=== PATIENT | male | born 1975 | race Caucasian/White ===

== ENCOUNTER → 2022-11-18 | Outpatient (CLI) | payer BC, SELFPAY ==
--- NOTE | 2022-11-18 16:43 | STRESSREP ---
Stress Test Report Exercise stress test. 47-year-old man with a history of chest pain Stress protocol: Resting EKG demonstrates sinus bradycardia with a rate of 55 bpm resting blood pressure is 112/80 mmHg. The patient exercised according to the regular Jasbir protocol for a total duration of 14 minutes attaining a maximum heart rate of 160 bpm which was 91% of maximum predicted heart rate; the maximum workload was 17.2 metabolic equivalents. At rest there were no ST or T wave changes noted to suggest ischemia and at peak exercise upsloping ST changes only were noted which did not meet the criteria for ischemia. No clinical angina was noted the test was terminated due to the target heart rate being achieved/fatigue. The peak blood pressure was 148/80 mmHg. Rate-pressure product was 23,600. Conclusion: Stress test with no EKG criteria for ischemia at a high workload Excellent functional aerobic capacity.
== END | disposition home or self-care (01) ==
LOC: CVS 11:06
PROVIDERS: Referring Provider Internal Medicine Cardiovascular Disease; Visit Provider Internal Medicine Cardiovascular Disease
DX: R07.9 Chest pain, unspecified (principal)
CPT/HCPCS: 93017

== ENCOUNTER → 2022-11-28 | Outpatient (CLI) | payer BC, SELFPAY ==
[2022-11-28 13:14] LABS: AST(SGOT) 28 U/L (15-37); Alanine Aminotransfer ALT/SGPT 25 U/L (16-61); Albumin, Serum 4.2 g/dL (3.2-5.0); Alkaline Phosphatase 60 U/L (45-117); Bilirubin, Direct 0.19 mg/dL (0.00-0.30); Cholesterol 208 mg/dL (200); Globulin 3.2 g/dL (2.2-4.2); High Density Lipoprotein 80 mg/dL; Protein, Total 7.4 g/dL (6.4-8.2); Triglycerides 50 mg/dL; Very Low Density Lipoprotein 10 mg/dL (5-40)
== END | disposition home or self-care (01) ==
LOC: LAB 12:15
PROVIDERS: Referring Provider Internal Medicine Cardiovascular Disease; Visit Provider Internal Medicine Cardiovascular Disease
DX: E78.00 Pure hypercholesterolemia, unspecified (principal)
CPT/HCPCS: 36415; 80061; 80076

== ENCOUNTER → 2022-12-15 | Outpatient (CLI) | payer BC, SELFPAY ==
--- NOTE | 2022-12-15 13:19 | CT_ITS ---
INDICATION: CHEST PAIN EXAMINATION: CT CHEST WITHOUT CONTRAST - CT Chest W/O Contrast Injection TECHNIQUE: Helically acquired images were obtained of the chest. A radiation dose optimization technique was used for this scan. IV Contrast dosage and agent: None. Cardiac over read examination. COMPARISON: None. FINDINGS: LUNGS, PLEURA AND LARGE AIRWAYS: No masses, consolidation, or edema. No pleural effusion or thickening. No pneumothorax. THYROID: No thyroid lesions. HEART AND PERICARDIUM: Heart size is normal. No pericardial effusion. CORONARY ARTERIES: Coronary artery calcification is not seen. VESSELS: Thoracic aorta is not dilated. MEDIASTINUM AND GONZALO: Small benign-appearing mediastinal lymph nodes. Esophagus is unremarkable. No hiatal hernia. UPPER ABDOMEN: No acute pathology. BONES: No suspicious lytic or blastic abnormality. CT/Limited Chest CT Cardiac Only IMPRESSION: Negative CT chest without contrast. Electronically Signed: Dex Hu MD at 9:38 EDT ,
--- NOTE | 2022-12-24 16:03 | CA.SCORE ---
Calcium Scoring Date of Study:: 12/15/22 Indications Indications: Screening Coronary Calcium Scoring: High-resolution Computed Tomographic imaging of the chest was performed on [12/15/2022], with particular attention paid to the coronary arteries. Images from the examination were analyzed for the presence and extent of coronary artery calcification , using coronary calcium quantification software. The patient tolerated the procedure well and there were no complications. The results of the coronary calcification analysis are provided below. Findings Coronary Artery Left Main (LM): 0 Left Anterior Descending (LAD): 0 Left Circumflex (LCX): 0 Right Coronary Artery (RCA): 0 Total Agatston Score: 0 Percentile Rankin Calcium Scoring Interpretation: Different methods to categorize the overall amount of coronary plaque. Overall amount CAC SIS Visual of coronary plaque P1 Mild -100 <2 1-2 vessels with mild amount of plaque P2 Moderate 101-300 3-4 1-2 vessels with moderate amount, 3 vessels with mild amount of plaque P3 Severe 301-999 5-7 3 vessels with moderate amount, 1 vessel with severe amount of plaque P4 Extensive >1000 >8 2-3 vessels with severe amount of plaque Conclusion: No significant atherosclerotic plaquing noted.
== END | disposition home or self-care (01) ==
PROVIDERS: Referring Provider Internal Medicine Cardiovascular Disease; Visit Provider Internal Medicine Cardiovascular Disease
DX: R07.9 Chest pain, unspecified (principal)
CPT/HCPCS: 75571; 76380

== ENCOUNTER 2023-02-10 12:47 | Day surgery (SDC) | payer BC, SELFPAY ==
[2023-02-10] VITALS (9 sets, daily range): BP systolic 97–144; BP diastolic 72–130; PULSE 58–65; RESP 16–17; TEMP 36.2–37; O2SAT 96–98; BMI 23.8
[2023-02-10] MEDS: Lactated Ringers 1,000 ML 15 ML IV (13:14)
--- NOTE | 2023-02-10 13:44 | PCM.HP.STD ---
[facility] - General General Date of Admission: 02/10/23 Date of Service: 02/10/23 Chief Complaint: Screening colonoscopy [facility] Narrative ASHLYN HUITRON, is a 47 M who presents today for screening colonoscopy. He has never had a colonoscopy in the past. He has occasional abdominal discomfort with some mild bloating and has some mild incomplete evacuation. He has noticed that his stools have been a bit harder. His weight has been stable. He has not seen any blood in his stool. He has no family history of colon cancer or colon polyps. [facility] Medical History Alcohol use Cardiology follow-up encounter Chest pain Fatigue Heartburn History of echocardiogram History of stress test Hypertriglyceridemia Light headed Myalgia Non-smoker Palpitations Wears glasses Home Medications NK 10/16/22 [History Last Taken Unknown] Allergy/AdvReac Type Severity Reaction Status Date / Time No Known Allergies Allergy Unverified 02/10/23 12:58 Family History Father CAD (coronary artery disease) Hyperlipidemia Grandfather Myocardial infarction Grandmother Myocardial infarction Surgical History History of hydrocelectomy Hx of vasectomy Social History Smoking Status: Never smoker alcohol intake: current alcohol intake frequency: a few times a week Alcohol type: wine substance use type: does not use caffeine: Yes Type: coffee and tea ROS Review of Systems ROS Unobtainable: other Constitutional Constitutional: Denies fatigue, fever(s), poor appetite, weight gain or weight loss ENT HEENT: Denies mouth lesions Cardiovascular Cardiovascular: Denies abdominal bloating, abdominal edema or abdominal pain Respiratory/Chest Respiratory/Chest: Denies change in mental status, change in phlegm color, chest congestion or chest tightness Gastrointestinal Gastrointestinal: Denies belching, bloating, change in bowel habits, change in stool character, chewing difficulty, coffee ground emesis, constipation, cramping, diarrhea, dyspepsia, dysphagia, early satiety, excessive flatus, fecal incontinence, heartburn, hematemesis, hematochezia, hemorrhoids, loose stools, melena, nausea, odynophagia, rectal bleeding, tenesmus, vomiting or weight changes Genitourinary Genitourinary: Denies abdominal discomfort, burning urination or itching Musculoskeletal Musculoskeletal: Reports as per HPI; Denies muscle weakness or myalgias Integumentary Integumentary: Denies jaundice Neurologic Neurologic: Denies lack of coordination or weakness Psychiatric Psychiatric: Denies confusion, depression, memory loss, mood swings, paranoia or suicidal ideation Endocrine Endocrinology: Denies systems reviewed and no addt'l complaints, except as documented Hematologic/Lymphatic Hematologic/Lymphatic: Denies anemia, easy bleeding, easy bruising or lymphadenopathy Allergic/Immunologic Allergic/Immunologic: Denies systems reviewed and no addt'l complaints, except as documented Vital Signs Vital Signs Vital Signs: 02/10/23 13:14 02/10/23 13:14 Temperature 98.6 F Temperature Source Temporal Pulse Rate 64 Respiratory Rate 17 Respiratory Pattern Normal Blood Pressure 123/83 H Blood Pressure Mean 96 Blood Pressure Source Monitor Blood Pressure Position Semi-Fowlers Blood Pressure Location Left Arm Pulse Ox 96 Oxygen Delivery Method Room Air Weight Weight: 152 lb 1.903 oz Body Mass Index (BMI) 23.8 Physical Exam Const alert General Appearance: cooperative Orientation / Consciousness: oriented to person HEENT hearing grossly normal bilaterally Head and Scalp: normal to inspection Face and Sinus: face symmetric Nose: external nose normal Mouth: oral and palatal mucosa normal Eyes conjunctivae normal General Eye: normal appearance of both eyes Neck full ROM General: normal visual inspection Lymph Lymphatic: no lymphadenopathy noted Chest inspection of chest normal and palpation of chest normal Chest: symmetrical chest wall rise Resp normal respiratory effort Effort and Inspection: able to speak in complete sentences Cardio regular rate GI non-distended Percussion: normal to percussion Rectal Exam: deferred Neuro Speech: speech normal Gait (Neuro): normal gait Assessment & Plan Assessment/Plan (1) Encounter for screening for malignant neoplasm of colon: PLAN: He was explained alternatives, risk, benefits including not withstanding bleeding, infection, sepsis, perforation, need for emergent surgery . He will have an ASA of 2.
--- NOTE | 2023-02-10 13:45 | COLBX_PTH ---
PATIENT: ASHLYN HUITRON LOC: EN U#:[id number] AGE/SX: 47/M ROOM: RE02/10/[address]: Dr. Jus Schaeffer DO : 1975 BED: DIS: 02/10/2023 SPEC #: [id number] RECD: 02/10/23 15:53 STATUS: ELIZABETH REAnil #: [id number] LINDA: 02/10/23 13:[address]: Jus Schaeffer DEPT: SURGICAL PATHOLOGY RECD BY: Deann Chris ENTERED: 02/11/23 08:42 SP TYPE: COLON BX OTHR DR: No Primary Care Phys Tissues: Ileum, NOS Procedures: Surgery Specimen Level IV HEADER OPERATION: Colonoscopy ? open access (MAC) PRE-OP DIAGNOSIS: Screening TISSUE SUBMITTED: Terminal ileum biopsy MICROSCOPIC DIAGNOSIS Terminal ileum, biopsy: Fragments of small intestinal mucosa, no pathologic diagnosis. VIKY:maninder 02/12/2023 MICROSCOPIC DESCRIPTION Slides are reviewed. GROSS DESCRIPTION Received in fixative is one container labeled with the patient's name and designated terminal ileum. The specimen consists of multiple irregular fragments of light love soft tissue that in aggregate measure 1.0 x 0.3 x 0.1 cm. The specimen is totally submitted in one cassette. / SJ:maninder 02/11/2023 TC:4 CPT: 49137
--- NOTE | 2023-02-10 14:22 | OP.CCLET_ITS ---
02/10/2023 No Primary Care Physician Re : Colonoscopy procedure for Sarthak Lee Dear Care Physician This procedure was performed on Friday, February 10, 2023. My impressions and recommendations are as follows: Impressions : - The entire examined colon is normal. - Congested mucosa in the terminal ileum. - No specimens collected. Recommendations : - Discharge patient to home. - Resume previous diet. - Continue present medications. - Await pathology results. - Repeat colonoscopy in 10 years for screening purposes. My findings are described in the full procedure note, which is enclosed. If I can be of further assistance, please feel free to contact me at . Sincerely, Jus Schaeffer, 02/10/2023 2:22:08 PM This report has been signed electronically.
--- NOTE | 2023-02-10 14:22 | OP.COLON_ITS ---
Patient Name: Sarthak Lee Procedure Date: 02/10/2023 1:43 PM Date of : 1975 Age: 47 Procedure: Colonoscopy Indications: Screening for colorectal malignant neoplasm Providers: Jus Schaeffer DO Medicines: Monitored Anesthesia Care Patient Profile: This is a 47 year old male. Refer to note in patient chart for documentation of history and physical. Last Colonoscopy: none. The patient's first colonoscopy is today. Complications: No immediate complications. Procedure: Pre-Anesthesia Assessment: - Prior to the procedure, a History and Physical was performed, and patient medications and allergies were reviewed. The patient is competent. The risks and benefits of the procedure and the sedation options and risks were discussed with the patient. All questions were answered and informed consent was obtained. Patient identification and proposed procedure were verified by the physician. Mental Status Examination: normal. Prophylactic Antibiotics: The patient does not require prophylactic antibiotics. Prior Anticoagulants: The patient has taken no previous anticoagulant or antiplatelet agents. After reviewing the risks and benefits, the patient was deemed in satisfactory condition to undergo the procedure. The anesthesia plan was to use minimal sedation / analgesia (anxiolysis). Immediately prior to administration of medications, the patient was re-assessed for adequacy to receive sedatives. The heart rate, respiratory rate, oxygen saturations, blood pressure, adequacy of pulmonary ventilation, and response to care were monitored throughout the procedure. The physical status of the patient was re-assessed after the procedure. After I obtained informed consent, the scope was passed under direct vision. Throughout the procedure, the patient's blood pressure, pulse, and oxygen saturations were monitored continuously. The colonoscope was introduced through the anus and advanced to the terminal ileum. The terminal ileum, ileocecal valve, appendiceal orifice, and rectum were photographed. Scope In: 2:00:36 PM Scope Withdrawal Time 0 hours 9 minutes 46 seconds Scope Out: 2:15:07 PM Total Procedure Duration Time 0 hours 14 minutes 31 seconds Findings: The perianal and digital rectal examinations were normal. The colon (entire examined portion) appeared normal. A patchy area of the terminal ileum was congested. Biopsies were taken with a cold forceps for histology. Verification of patient identification for the specimen was done. Estimated blood loss was minimal. Impression: - The entire examined colon is normal. - Congested mucosa in the terminal ileum. - No specimens collected. Recommendation: - Discharge patient to home. - Resume previous diet. - Continue present medications. - Await pathology results. - Repeat colonoscopy in 10 years for screening purposes. Procedure Code(s): --- Professional --- 76375, Colonoscopy, flexible; with biopsy, single or multiple CPT copyright 2017 [employer]. All rights reserved. The codes documented in this report are preliminary and upon olericulture professor review may be revised to meet current compliance requirements. Jus Schaeffer DO 02/10/2023 2:22:08 PM This report has been signed electronically. Number of Addenda: 0 Note Initiated On: 02/10/2023 1:43 PM
== END 2023-02-10 15:14 | disposition home or self-care (01) ==
LOC: EN 12:53 → AC 12:56
PROVIDERS: Visit Provider Internal Medicine Gastroenterology
PROC: 0DJD8ZZ Inspection of Lower Intestinal Tract, Via Natural or Artificial Opening Endoscopic (ICD-10-PCS; CPT 45378; principal; 2023-02-10 13:40)
DX: Z12.11 Encounter for screening for malignant neoplasm of colon (principal)
CPT/HCPCS: 45380; 88305; J7120; J2405

== ENCOUNTER 2024-11-29 16:10 | Emergency (ER) | payer BC, SELFPAY ==
[2024-11-29 16:11] VITALS: BP 110/94; PULSE 65; RESP 18; TEMP 36.8; O2SAT 100; BMI 24.0
--- NOTE | 2024-11-29 16:19 | VDLE_ITS ---
Reason For Study Reason For Study: RLE PAin/ Swelling RIGHT LEFT GSV is normal. CFV is compressible, spontaneous, phasic, competent, CFV is compressible, spontaneous, phasic, competent and demonstrates normal augmentation. and demonstrates normal augmentation. FV is compressible, spontaneous, phasic, competent and demonstrates normal augmentation. POP V is compressible, spontaneous, and phasic. T/P Trunk is compressible. Acute deep vein thrombosis is noted in the Gastrocnemius V. It is dilated and NONCOMPRESSIBLE. Acute deep vein thrombosis is noted in the Soleus Vein. It is dilated and NONCOMPRESSIBLE. Acute deep vein thrombosis is noted in the PTV. It is dilated and NONCOMPRESSIBLE. RT PerV is compressible. Procedure This is a venous duplex using B-mode, color flow and spectral Doppler. Exam performed portable in ED. The exam was diagnostic. A preliminary report was called and/or faxed to Dr. Buenrostro. VL/Venous Duplex US, Unilateral Interpretation Summary Acute deep vein thrombosis is noted in the right posterior tibial vein. Acute d eep vein thrombosis is noted in the right soleus vein. Acute deep vein thrombosis is noted in the right gastrocnemius vei n. The remainder of the right lower extremity deep venous system is patent and compressible. Valvular competence ap pears intact within the proximal deep venous system on the right . The right great saphenous vein appears patent and compressible segmentally. The left common femoral vein is patent and compressible . Ordering Physician: Rl Buenrostro Referring Physician: N/A Performed By: Abhi Duncan RVT
--- NOTE | 2024-11-29 16:30 | EDS_ITS ---
HPI History of Present Illness Chief Complaint: Lower Extremity Injury Narrative Narrative: Patient is a 49-year-old male with no known significant past medical history who presented to the emergency department from the orthopedic office with a chief complaint of right calf pain. Patient states that he recently took a trip to [facility] and notes that he has some pain in his catheter been worsening. He states that the injury to his knee was right before the trip and that is why he was f ollowing up with them in the outpatient setting. He states that they scheduled an MRI for his right knee but were concerned that he may have a blood clot in his leg therefore they sent him here for the valuation management. Patient denies any history of blood clots. [facility] Medical History Wears glasses Alcohol use Heartburn Non-smoker History of echocardiogram History of stress test Cardiology follow-up encounter Hypertriglyceridemia Palpitations Fatigue Myalgia Chest pain Light headed Home Medications ?Medication ?Instructions ?Recorded ?Last Taken ?Type NK 10/16/22 Unknown History Allergy/AdvReac Type Severity Reaction Status Date / Time No Known Allergies Allergy Verified 11/29/24 16:13 Family History Father CAD (coronary artery disease) Hyperlipidemia Grandfather Myocardial infarction Grandmother Myocardial infarction Surgical History History of hydrocelectomy Hx of vasectomy Social History Smoking Status: Never smoker alcohol intake: current alcohol intake frequency: a few times a week Alcohol type: wine substance use type: does not use caffeine: Yes Type: coffee and tea ROS ROS ED ROS Narrative Constitutional: Denies fevers, chills, headaches Cardiovascular: Denies chest pain Respiratory: Denies shortness of breath Neurological: Denies numbness, weakness, tingling Musculoskeletal: Complains of right knee pain as noted above as well as calf pain Skin: Denies rashes or lesions EXAM Physical Exam Narrative Exam Narrative: General: Patient was lying in bed rest comfortably did not appear to be in acute distress Head: Atraumatic, normocephalic Eyes: PERRL bilaterally, EOMI bilateral, no conjunctival injection noted Neck: Soft, supple, trachea midline Cardiovascular: Regular rate and rhythm no murmurs gallops rubs noted Respiratory: Clear to auscultation bilaterally Abdomen: Soft, nondistended, nontender to palpation Musculoskeletal: Patient has some mild tenderness to palpation in his posterior calf on the right side, compartments are soft and compressible Extremities: DP pulses +2/4 in the bilateral lower extremities is 5/5 strength noted in the bilateral upper and lower extremities Neurological: Patient following commands knew that he was at [facility] year is 2024 Skin: Warm, dry, intact no rashes or lesions noted Const Vital Signs: 11/29/24 16:11 Temperature 98.2 F Temperature Source Oral Pulse Rate 65 Respiratory Rate 18 Blood Pressure 110/94 H Blood Pressure Mean 99 Pulse Ox 100 Oxygen Delivery Method Room Air MDM MDM MDM Narrative Medical decision making narrative: Patient is a 49-year-old male who presented to the emergency department the chief complaint of concern for a blood clot in his right calf after a recent trip to [facility]. On the differential diagnose includes but not limited to musculoskeletal strain, DVT, superficial venous thrombosis. Once workup is obtained reviewed he will be reevaluated. Patient's venous Doppler was positive for a DVT he will be started on Eliquis. He will be given follow-up with vascular surgery Dr. Duarte. He was advised to avoid high risk activities and if he falls in its his head he needs to be evaluated immediately as there is a chance that he has a head bleed. He verbalized understanding of this as well as his family member at bedside. They are agreeable this plan all question concerns answered he is discharged home in stable condition. Discharge Plan Triage Chief Complaint: Lower Extremity Injury ED Provider: Rl Buenrostro Dx/Rx/DC Orders Clinical Impression: Acute deep vein thrombosis (DVT) of right lower extremity Instructions: DVT Complications Prescriptions: No Action NK Primary Care Provider: Care Physician,No Primary Referrals: Care Physician,No Primary [Primary Care Provider] - Vivien Ross MD [Med Staff - Computer Education Teacher] - Stevo Duarte MD [Med Staff - Active Staff] - Activity Restrictions/Additional Instructions: Follow-up with the vascular surgeon you referred to. Take Eliquis as prescribed. Return with worsening symptoms or concerns. If you fall and hit your head you need to be evaluated immediately in the emergency department as her chance that you will have a head bleed while on the blood thinning medication from the head trauma. You are also referred to a primary care p [place] if you not have 1. He should follow-up with them as well. Print Language: Chadian Disposition Disposition: Home, Self Care
[2024-11-29 17:11] VITALS: BP 109/76; PULSE 62; RESP 14; TEMP 36.6; O2SAT 99
== END 2024-11-29 17:12 | disposition home or self-care (01) ==
PROVIDERS: Emergency Provider Emergency Medicine; Visit Provider Emergency Medicine
DX: I82.401 Acute embolism and thrombosis of unspecified deep veins of right lower extremity (principal)
CPT/HCPCS: 93971; 99282

== ENCOUNTER 2024-12-01 15:03 | Emergency (ER) | payer BC, SELFPAY ==
[2024-12-01 15:04] VITALS: BP 123/86; PULSE 58; RESP 13; TEMP 36.2; O2SAT 100
--- NOTE | 2024-12-01 16:56 | ED.VIS.LOWEX ---
HPI History of Present Illness HPI Narrative: 49-year-old male recently diagnosed with a right calf DVT has been on Eliquis 2 to 3 days. He is also now developed a right knee effusion. Did previously a few weeks ago have a knee injury while playing sports. Has an upcoming MRI to see if there is any structural damage to his knee. Denies any fever or redness. Chief Complaint: Lower Extremity Injury Informant: patient and spouse/S.O. Occured/Mechanism Mechanism/Context: Yes injury Onset/Context/Timing Onset: Weeks Context: Gradual Onset Timing: Continuous Current Severity: Mild Maximum Severity: Mild Associated Symptoms Associated Symptoms: Negative for Parasthesia, Weakness or Loss of Funtion Narrative Narrative: 49-year-old male known right calf DVT recently started on Eliquis. Saw orthopedics. Has a scheduled MRI for his right knee to see if there is any structural damage. Over the last several days he has developed an effusion. Denies any bruising. No epistaxis. No blood in his urine. No blood in his stool. No bruising to his leg. No fever or redness. Prior similar symptoms: No Recent Illness/Hospitalization: No PFSH PFSH Medical History Wears glasses Alcohol use Heartburn Non-smoker History of echocardiogram History of stress test Cardiology follow-up encounter Hypertriglyceridemia Palpitations Fatigue Myalgia Chest pain Light headed Home Medications ?Medication ?Instructions ?Recorded ?Last Taken ?Type apixaban 5 mg (74 tabs) tablets in See Rx Instructions PO .COMPLEX 11/29/24 Unknown Rx a dose pack (Eliquis DVT-PE Treat #74 tabs 30D Start) Allergy/AdvReac Type Severity Reaction Status Date / Time No Known Allergies Allergy Verified 12/01/24 15:06 Family History Father CAD (coronary artery disease) Hyperlipidemia Grandfather Myocardial infarction Grandmother Myocardial infarction Surgical History History of hydrocelectomy Hx of vasectomy Social History household members: family housing: house Smoking Status: Never smoker alcohol intake: current alcohol intake frequency: a few times a week Alcohol type: wine substance use type: does not use caffeine: Yes Type: coffee and tea ROS ROS ED ROS Narrative Denies recent illness. Constitutional Constitutional ED: Denies chills or fever(s) Eyes Eyes: Denies blurry vision ENT ENT ED: Denies ear pain Cardiovascular Cardiovascular: Denies chest pain Respiratory/Chest Respiratory/Chest: Denies cough or dyspnea Gastrointestinal Gastrointestinal: Denies abdominal pain Genitourinary Genitourinary ED: Denies dysuria or hematuria Musculoskeletal Musculoskeletal: Denies arthralgias or back pain Integumentary Denies abscess or Abrasions Neurologic Neurologic: Denies headache(s) Psychiatric Psychiatric: Denies anxiety Endocrine Endocrinology: Denies polydipsia Hematologic/Lymphatic Hematologic/Lymphatic: Reports lymphadenopathy; Denies easy bleeding Allergic/Immunologic Allergic/Immunologic ED: Denies mouth swelling, tongue swelling or urticaria EXAM Physical Exam Narrative Exam Narrative: Well-appearing 49-year-old male. Vital signs are stable afebrile. Pulse ox 100% on room air no hypoxia. No distress. H EENT exam pupils round react light. Moist mucous membranes. Lungs clear to auscultation bilaterally. Heart regular rhythm no murmur. Chest wall ribs nontender. Abdomen soft nontender. Moving all 4 extremities. He has an obvious effusion to his right knee mild swelling to his right calf. He has a known right calf DVT. He has a small to moderate effusion to the right knee. He is able to flex send his right knee with some discomfort. There is no cellulitis. No signs of a septic joint. Right hip is nontender. He has normal dorsi plantarflexion of his right ankle. Normal strength. Normal sensation. Normal DP pulse. Left lower extremity is nontender and unremarkable. Normal exam. Patient is awake and alert. The right knee structurally his ACL and PCL appear to be intact as does his MCL and LCL. Quadriceps patellar tendons intact. He can extend the knee to 180 degrees. He is able do flexion with mild discomfort. Const Vital Signs: 12/01/24 15:04 Temperature 97.1 F L Temperature Source Temporal Pulse Rate 58 L Respiratory Rate 13 Blood Pressure 123/86 H Blood Pressure Mean 98 Pulse Ox 100 Oxygen Delivery Method Room Air Positive well nourished and well developed; Negative for obese, cachectic, contractures or unkempt General Appearance ED: well developed and NAD; Negative for unkempt, cachectic or contractures Nutritional Appearance: Negative for cachectic or obese HEENT Reports moist mucous membranes normocephalic and atraumatic; Negative for trauma or tenderness Eyes PERRL General Eye ED: Negative for other Neck full ROM and supple Chest Wall inspection of chest normal and palpation of chest normal Resp normal respiratory effort, no retractions and clear to auscultation bilaterally Auscultation: Negative for rales, rhonchi, wheezes or diminished lung sounds Cardio regular rate, regular rhythm, S1 normal heart sound, S2 normal heart sound and no murmurs GI non-tender, non-distended and no masses Auscultation: normoactive bowel sounds Palpation: soft; Negative for tender, guarding or rebound tenderness present Back/Spine no CVA tenderness General Back: Negative for CVA tenderness Cervical Spine: Negative for cervical spine tenderness Thoracic Spine / Upper Back: Negative for thoracic spinal tenderness Extremity normal to inspection and full ROM Extremity Narrative: Except right knee. Small to moderate effusion. Able to do flexion and extension. Can extend 180 degrees. Can lift his leg off the bed. ACL and PCL are intact. MCL and LCL are intact. Quadriceps patellar tendons intact. No cellulitis. No septic knee joint. Dorsi plantarflexion intact. Palpable DP pulse. General Extremety ED: Yes edema; Negative for cyanosis General Extremity: edema; Negative for cyanosis Neuro oriented x3, CN's II-XII intact bilaterally, moves all extremities and no sensory deficits noted Sensorium / Orientation: alert, oriented to person, oriented to place and oriented to time; Negative for orientation impaired, confused, lethargic or stuporous Motor Exam: strength 5/5 throughout Psych mental status grossly normal Appearance: Negative for unkempt Speech: No other Skin no wounds Lesions: no lesions Rashes: no rashes MDM MDM MDM Narrative Medical decision making narrative: 49-year-old male known right calf DVT on Eliquis now also has a right knee effusion. May have had a recent injury. Has an upcoming MRI in 1 to 2 weeks. He does not need x-rays he just had those done at the physician's office. He just had the ultrasound showing a DVT. There is no signs of a septic joint or this being infectious. I do not think draining his knee would be of benefit 1 it would increase his risk of infection to it may reaccumulate. He will be discharged home. Ice and elevate. Tylenol for pain. Continue his Eliquis. He has a follow-up appointment with vascular surgery for further evaluation. Discharge Plan Triage Chief Complaint: Lower Extremity Injury ED Provider: Erwin Meredith Dx/Rx/DC Orders Clinical Impression: Acute deep vein thrombosis (DVT) of right lower extremity, Effusion of right knee joint Instructions: DVT Dc, ED Knee Effusion Prescriptions: No Action Eliquis DVT-PE Treat 30D Start 5 mg (74 tabs) tablets,dose pack See Rx Instructions .ROUTE .COMPLEX Qty: 74 0RF Rx Instructions: orally per package directions Primary Care Provider: Care Physician,No Primary Referrals: tier [Other] Stevo Duarte MD [Med Staff - Active Staff] - Keep Sheyla appointment Care Physician,No Primary [Primary Care Provider] - Activity Restrictions/Additional Instructions: You have a blood clot in your right calf. You have an effusion or fluid in your right knee. The fluid in your knee could be from the clot or from a knee injury like a meniscal tear or from the blood thinner and be a hemarthrosis or blood. Ice and elevate your leg to decrease the swelling. Continue your Eliquis. Follow-up with the vascular surgeon and also your MRI through [facility]. Tylenol for pain. Print Language: Khmer Disposition Disposition: Home, Self Care
== END 2024-12-01 17:08 | disposition home or self-care (01) ==
PROVIDERS: Emergency Provider Emergency Medicine; Visit Provider Emergency Medicine
DX: I82.401 Acute embolism and thrombosis of unspecified deep veins of right lower extremity (principal); M25.461 Effusion, right knee
CPT/HCPCS: 99282

== ENCOUNTER → 2025-02-22 | Outpatient (CLI) | payer BC, SELFPAY ==
--- NOTE | 2025-02-22 08:03 | VDLE_ITS ---
Reason For Study Reason For Study: HX RLE DVT RIGHT LEFT GSV is normal. CFV is compressible, spontaneous, phasic, competent, CFV is compressible, spontaneous, phasic, competent and demonstrates normal augmentation. and demonstrates normal augmentation. FV is compressible, spontaneous, phasic, competent and demonstrates normal augmentation. POP V is compressible, spontaneous, phasic, competent and demonstrates normal augmentation. T/P Trunk is compressible. PTV is compressible. RT PerV is compressible. Soleus Vein is compressible. Acute deep vein thrombosis is noted in the Gastrocnemius V. It is dilated and NONCOMPRESSIBLE. Procedure This is a venous duplex using B-mode, color flow and spectral Doppler. Exam performed in department. The exam was diagnostic. Compare to study 11/29/2024. A preliminary report was called and/or faxed to [facility]. VL/Venous Duplex US, Unilateral Interpretation Summary Acute deep vein thrombosis noted in right gastrocnemius vein. Partial resolution in interval from prior imaging. Ordering Physician: Sapna Grant Referring Physician: N/A Performed By: Abhi Duncan, RVDarrian
== END | disposition home or self-care (01) ==
LOC: CVS 08:02
PROVIDERS: Referring Provider Physician Assistant; Visit Provider Physician Assistant
DX: M79.89 Other specified soft tissue disorders (principal); I82.409 Acute embolism and thrombosis of unspecified deep veins of unspecified lower extremity; M79.604 Pain in right leg
CPT/HCPCS: 93971

== ENCOUNTER → 2025-03-03 | Outpatient (CLI) | payer BC, SELFPAY ==
--- OUTSIDE RECORDS SUMMARY | 2025-03-03 06:58 | XMS RPT_ITS | CCD ---
Author Organization [facility] Care Team Providers Care Resident Physician Name Role Phone Amanda Avalos Attending Provider UnavailDr. Jerome Wynn Attending Provider [phone] Care Physician, No Primary Referring Provider Un available Care Physician, No Primary Primary Care Provider Unavailable Dr. Jerome Garcia Referring Provider [phone] Jerome Garcia Other Provider Yun Bazan Attending Provider Unavailable Rachel Drake Attending Provider Unavailable Dr. Jus Schaeffer Attending Provider [phone] Friend[address] Luu Other Provider [phone] Unavailable Primary Care Provider UnavailBLAINE Dinh Referring Unavailable Care Physician, No Primary Primary Care Provider Unavailable Dr. Rl Buenrostro DO Emergency Provider Dr. Erwin Meredith MD Emergency Provider [phone] Dr. Rl Buenrostro DO Attending Provider Trent NAPIER, Dr. Hemant Chand Attending Provider Dr. Rl Buenrostro DO Referring Provider Dr. Erwin Meredith MD Attending Provider [phone] Care Physician, No Primary Referring Provider Un available Sapna Paniagua Attending Provider [phone] Sapna Paniagua Referring Provider [phone] Sapna Grant Attending Unavailable Care Physician, No Primary Primary Care Unava ilable Care Physician, No Primary Referring Unava ilable Rl Buenrostro Attending Unavailable Care Physician, No Primary Primary Care Unava ilable Erwin Meredith Attending Unavailable Care Physician, No Primary Primary Care Unava ilable Clari Osman Attending Unavail able Clari Osman Referring Unavail able Care Physician, No Primary Primary Care Unava ilable Grant, Sapna Attending Unavailable Grant, Sapna Referring Unavailable Care Physician, No Primary Primary Care Unava ilable Grant, Sapna Attending Unavailable Care Physician, No Primary Primary Care Unava ilable Care Physician, No Primary Referring Unava ilable Stevo Duarte Attending Unavailable Care Physician, No Primary Primary Care Unava ilable Medications Current Medications Medication Drug Class(es) Dates Sig (Normalized) Sig (Original) apixaban 5 mg oral tablet (4 sources) Factor Xa Inhibitor Start: 12-16-2024 take 1 tablet by mouth twice daily Apixaban (Eliquis) 5 mg tablet Active 5 mg PO TWICE A DAY 60 December 16, 2024 12:00am Start: 11-29-2024 End: 02-22-2025 take 1 tablet by mouth once Apixaban (Eliquis Dvt-Pe T reat 30d Start) 5 mg (74 tabs) tablets,dose pack Discontinued 0 PO .COMPLEX 74 November 29, 2024 12:00am February 22, 2025 9:06am orally per package directions oseltamivir 75 mg oral capsule (1 source) Neuraminidase Inhibitor Start: 10-15-2024 End: 10-20-2024 take 1 capsule by mouth twice daily oseltamivir (TAMIFLU) 75 mg capsule Indications: Influenza A Take 1 capsule by mouth two times a day for 5 days. 10 capsule 10/15/2024 10/20/2024 Active Problems Problem Classification Problem Date Documented Da te Episodic/Chronic Cardiac dysrhythmias (7 sources) Palpitations; Translations: [Palpitations] 10-16-2022 Episodic Conditions associated with dizziness or vertigo (7 sources) Lightheadedness; Translations: [Dizziness and giddiness] 10-16-2022 Episodic Fever of unknown origin (1 source) Fever; Translations: [Fever, unspecified] 10-15-2024 Episodic Influenza (1 source) Influenza due to Influenza A virus; Translations: [Influenza due to other identified influenza virus with other respiratory manifestations] 10-15-2024 Episodic Nonspecific chest pain (11 sources) Chest pain; Translations: [Chest pain, unspecified] 10-16-2022 Episodic Comment on above: 11/2022 Other connective tissue disease (1 source) Swelling of right lower limb; Translations: [Other specified soft tissue disorders] 12-16-2024 Episodic Other connective tissue disease (2 sources) Other specified soft tissue disorders; Translations: [Other specified soft tissue disorders] Onset: 12-16-2024 Episodic Other connective tissue disease (2 sources) Pain in right leg; Translations: [Pain in right leg] Onset: 12-16-2024 Episodic Other connective tissue disease (1 source) Pain in right lower leg; Translations: [Pain in right lower leg] Onset: 12-05-2024 Episodic Other non-traumatic joint disorders (1 source) Pain in right knee; Translations: [Pain in joint, lower leg] 11-19-2024 Episodic Other non-traumatic joint disorders (2 sources) Effusion of right knee joint; Translations: [Effusion, right knee] 12-01-2024 Episodic Other non-traumatic joint disorders (1 source) Effusion, right knee; Translations: [Effusion, right knee] Onset: 12-06-2024 Episodic Other screening for suspected conditions (not mental disorders or infectious disease) (6 sources) Patient encounter status; Translations: [Encounter for screening for malignant neoplasm of colon] 12-12-2022 Episodic Other skin disorders (1 source) Mass of skin; Translations: [Localized swelling, mass and lump, unspecified] 05-26-2024 Episodic Other upper respiratory infections (1 source) Upper respiratory infection; Translations: [Acute upper respiratory infection, unspecified] 10-15-2024 Episodic Phlebitis; thrombophlebitis and thromboembolism (6 sources) Acute deep vein thrombosis of lower limb; Translations: [Acute embolism and thrombosis of unspecified deep veins of right lower extremity] Onset: 12-16-2024 11-29-2024 Episodic Residual codes; unclassified (1 source) Family history of ischemic heart disease; Translations: [Family history of ischemic heart disease and other diseases of the circulatory system] 02-06-2025 Episodic Residual codes; unclassified (1 source) Family history of ischemic heart disease and other diseases of the circulatory system; Translations: [Family history of ischemic heart disease and other diseases of the circulatory system] Onset: 02-24-2025 Episodic Unclassified (2 sources) Acute pain of right knee 11-19-2024 Results Test Name Value Interpretation Reference Range Facility /Francesco 02-22-2025 /ANGELITO [facility] Vascular Surgery [address] [place] [address] OFFICE VISIT Date of Service: 02/22/25 MR#: [id number] Acct: [id number] Name: ASHLYN LEE Rep #: [id number] : 1975 Provider: JOSEFA Platt Age/Sex: 49/M [place] [facility] [place] Status: Signed Intake Vital Signs 12/01/24 15:04 02/22/25 09:05 Height 5 ft 7 in Weight: 158 lb BP 108/76 Blood Pressure Location Rt radial Position Sitting Respiration 16 Pulse 73 Pulse Source Monitor Temp 98 F Temp Source Temporal Pulse Oximetry (%) 97 Oxygen Delivery Method room air Intake Visit Reasons: 3 M FU Is patient in pain?: No Allergies No Known Allergies Allergy (Verified 02/22/25 09:06) Medications ???Medication ???Instructions ???Recorded ???Confirmed ???Type apixaban 5 mg tablet (Eliquis) 5 mg PO BID #60 tabs 02/22/2502/05 Rx Have you fallen in the past year?: No PFSH Medical History Family history of ischemic heart disease Wears glasses Alcohol use Heartburn Non-smoker History of echocardiogram History of stress test Cardiology follow-up encounter Hypertriglyceridemia Palpitations Fatigue Myalgia Chest pain Light headed Surgical History History of hydrocelectomy Hx of vasectomy Family History Father CAD (coronary artery disease) Hyperlipidemia Grandfather Myocardial infarction Grandmother Myocardial infarction Social History household members: family housing: house Smoking Status: Never smoker alcohol intake: current alcohol intake frequency: a few times a week Alcohol type: wine substance use type: does not use caffeine: Yes Type: coffee and tea HPI HPI HPI: ASHLYN LEE, is a 49 M who presents to the office today for follow-up of provoked R infrapopliteal DVT. He is scheduled for R ACL reconstruction with Dr. Sullivan at [facility] on 03/14/2025 and needs clearance/anticoagul ation recommendations from our office to proceed. He has just had repeat venous duplex prior to his appointment today which demonstrated resolution of his prior PT and soleal vein DVTs and showed persistent, small residual gastrocnemius DVT. His prior symptoms of tightness/pressure and swelling have resolved; he will intermittently have some return of the tightness/soreness but generally this is attributable to being overactive with his injured knee. He has been taking the Eliquis as prescribed without adverse effects and it is affordable with the copay card. ROS General General: No weight change, appetite, fatigue, colon cancer, breast cancer or weakness HEENT HEENT: No difficulty swallowing, eye injury, eye surgery, swollen glands or hoarseness Endo Endocrine: No thyroid disease, diabetes mellitus, thyroid cancer, Hair loss, heat intolerance or cold intolerance Skin Skin: Yes changing moles; No rash Musc Musculoskeletal: No back problems, arthritis, rheumatoid arthritis, gout or joint pain Cardio Cardiovascular: Yes murmur; No pacemaker, heart disease, atrial fibrillation, high blood pressure, heart attack, heart stent, palpitations, shortness of breath with exertion or chest pain Psych Psychiatric: No depression, anxiety or hearing voices Resp Respiratory: No shortness of breath, No sleep apnea, No cough, No COPD, No asthma, No emphysema and No wheezing Gastro Gastrointestinal: No abdominal pain, No nausea or vomiting, No diarrhea, No constipation, No blood in stool, No acid reflux, No hemorrhoids, No ulcers, No gallbladder problem and No black,tarry stools Jonathon Hematologic: Yes blood thinners, No blood disorders, No bleeding, No anemia and Yes blood clots Neuro Neurologic: No system reviewed and no additional complaints, except as documented, No as per HPI, No abnormal gait, No abnormal hearing, No abnormal movements, No abnormal speech, No behavioral changes, No burning sensations, No confusion, No convulsions, No disequilibrium, No dizziness, No localized weakness, No frequent falls, No headache(s), No lack of coordination, No loss of vision, No memory loss, Yes numbness, No other visual disturbances, No radicular pain, No restless legs, No sensory deficit, No syncope, Yes tingling, No tremor(s), No weakness and No other Exam Const General: cooperative, comfortable and no acute distress Orientation: alert, awake and oriented x3 HENMT Head: normal to inspection, normocephalic and atraumatic Ears: hearing grossly normal bilaterally and external ears normal Nose: external nose normal Eyes General: appearance normal, both eyes and all related structures EOM: EOM intact (more content not included)... Normal [facility] Venous Duplex US, Unilateral on 02-22-2025 Venous Duplex US, Unilateral [facility] Cardiovascular Services [address] [place] [address] Venous Duplex US, Unilateral 02/22/25 0811 MR#: [id number] Acct: [id number] Name: ASHLYN LEE Rep #: [id number] : 1975 49 From: Stevo Duarte MD Attending Dr: JOSEFA Platt Status: REG CLI Ordering Dr: Sapna Grant Date: 02/22/25 Location: CVS Sex: M C Admitted: Reason For Study Reason For Study: HX RLE DVT RIGHT LEFT GSV is normal. CFV is compressible, spontaneous, phasic, competent, CFV is compressible, spontaneous, phasic, competent and demonstrates normal augmentation. and demonstrates normal augmentation. FV is compressible, spontaneous, phasic, competent and demonstrates normal augmentation. POP V is compressible, spontaneous, phasic, competent and demonstrates normal augmentation. T/P Trunk is compressible. PTV is compressible. RT PerV is compressible. Soleus Vein is compressible. Acute deep vein thrombosis is noted in the Gastrocnemius V. It is dilated and NONCOMPRESSIBLE. Procedure This is a venous duplex using B-mode, color flow and spectral Doppler. Exam performed in department. The exam was diagnostic. Compare to study 11/29/2024. A preliminary report was called and/or faxed to [facility]. VL/Venous Duplex US, Unilateral Interpretation Summary Acute deep vein thrombosis noted in right gastrocnemius vein. Partial resolution in interval from prior imaging. Ordering Physician: Sapna Grant Referring Physician: N/A Performed By: Abhi Duncan, T 02/27/25 1434 Date Stevo Duarte MD CC: JOSEFA Platt; No Primary Care Physician Date Dictated: 02/22/25 08 Date Transcribed: 02/27/251433 Tool And Machine Maintainer: Signed [facility] MR/BMS.BVSon 12-16-2024 MR/BMS.S [facility] Vascular Surgery [address] [place] [address] OFFICE VISIT Date of Service: 12/16/24 MR#: [id number] Acct: [id number] Name: ASHLYN LEE Rep #: [id number] : 1975 Provider: JOSEFA Platt Age/Sex: 49/M [place] [facility] [place] Status: Signed Intake Vital Signs 11/29/24 16:11 12/01/24 15:04 12/16/24 08:42 Height 5 ft 7 in 5 ft 7 in Weight: 151 lb BP 111/73 Blood Pressure Location Lt brachial Position Sitting Respiration 16 Pulse 63 Pulse Source Monitor Temp 98 F Temp Source Temporal Pulse Oximetry (%) 99 Oxygen Delivery Method room air Intake Visit Reasons: Deep vein thrombosis Is patient in pain?: No Allergies No Known Allergies Allergy (Verified 12/16/24 08:42) Medications ???Medication ???Instructions ???Recorded ???Confirmed ???Type apixaban 5 mg (74 tabs) tablets in See Rx Instructions PO .COMPLEX 11/29/24 12/16/24 Rx a dose pack (Eliquis DVT-PE Treat #74 tabs 30D Start) apixaban 5 mg tablet (Eliquis) 5 mg PO BID #60 tabs 12/16/2412/06 Rx Have you fallen in the past year?: No [facility] Medical History Wears glasses Alcohol use Heartburn Non-smoker History of echocardiogram History of stress test Cardiology follow-up encounter Hypertriglyceridemia Palpitations Fatigue Myalgia Chest pain Light headed Surgical History History of hydrocelectomy Hx of vasectomy Family History Father CAD (coronary artery disease) Hyperlipidemia Grandfather Myocardial infarction Grandmother Myocardial infarction Social History household members: family housing: house Smoking Status: Never smoker alcohol intake: current alcohol intake frequency: a few times a week Alcohol type: wine substance use type: does not use caffeine: Yes Type: coffee and tea HPI HPI HPI: ASHLYN LEE, is a 49 M who presents to the office today for evaluation of RLE DVT. About 4 weeks ago, he was getting up after a nap and felt a sudden pain in his R knee and was not able to bear weight on his RLE. He went to urgent care and fracture was ruled out. He was NWB using crutches and a few days later went on a trip to [facility], used crutches while there. While there, he developed increased tightness/discomfort in his R calf and was evaluated in the ER upon his return where he was found to have acute R gastroc, PT, and soleus DVT. He was started on Eliquis, has completed 2 weeks and tolerating well. He reports his R calf tightness has improved though still with intermittent achiness. His R knee is a bit better, has been partial weightbearing/limpin g. He had an MRI and got results called back today which showed ACL and meniscus injury. He reports orthopedics is recommending likely return to crutches and surgery but no definite timeline yet. He does have an official orthopedics appointment soon. He denies prior personal or family history of VTE or clotting disorder. He reports no red flag signs/symptoms for malignancy. He denies varicose veins or chronic swelling prior to this. ROS General General: No weight change, appetite, fatigue, colon cancer, breast cancer or weakness HEENT HEENT: No difficulty swallowing, eye injury, eye surgery, swollen glands or hoarseness Endo Endocrine: No thyroid disease, diabetes mellitus, thyroid cancer, Hair loss, heat intolerance or cold intolerance Skin Skin: Yes changing moles; No rash Musc Musculoskeletal: No back problems, arthritis, rheumatoid arthritis, gout or joint pain Cardio Cardiovascular: Yes murmur; No pacemaker, heart disease, atrial fibrillation, high blood pressure, heart attack, heart stent, palpitations, shortness of breath with exertion or chest pain Psych Psychiatric: No depression, anxiety or hearing voices Resp Respiratory: No shortness of breath, No sleep apnea, No cough, No COPD, No asthma, No emphysema and No wheezing Gastro Gastrointestinal: No abdominal pain, No nausea or vomiting, No diarrhea, No constipation, No blood in stool, No acid reflux, No hemorrhoids, No ulcers, No gallbladder problem and No black,tarry stools Jonathon Hematologic: Yes blood thinners, No blood disorders, No bleeding, No anemia and Yes blood clots Neuro Neurologic: No system reviewed and no additional complaints, except as documented, No as per HPI, No abnormal gait, No abnormal hearing, No abnormal movements, No abnormal speech, No behavioral changes, No burning sensations, No confusion, No convulsions, No disequilibrium, No dizziness, Yes localized weakness, No frequent falls, No headache(s), No lack of coordination, N (more content not included)... Normal [facility] Emergency Department Summary on 12-01-2024 Emergency Department Summary [facility] Medical Records Department [address] [place] [address] Emergency Department Summary 12/01/24 MR#: [id number] Acct: [id number] Name: ASHLYN LEE Rep #: [id number] : 1975 49 From: Erwin Meredith MD PCP: Care Physician,No Primary Status:REG ER Location: ED HPI History of Present Illness HPI Narrative: 49-year-old male recently diagnosed with a right calf DVT has been on Eliquis 2 to 3 days. He is also now developed a right knee effusion. Did previously a few weeks ago have a knee injury while playing sports. Has an upcoming MRI to see if there is any structural damage to his knee. Denies any fever or redness. Chief Complaint: Lower Extremity Injury Informant: patient and spouse/S.O. Occured/Mechanism Mechanism/Context: Yes injury Onset/Context/Timing Onset: Weeks Context: Gradual Onset Timing: Continuous Current Severity: Mild Maximum Severity: Mild Associated Symptoms Associated Symptoms: Negative for Parasthesia, Weakness or Loss of Funtion Narrative Narrative: 49-year-old male known right calf DVT recently started on Eliquis. Saw orthopedics. Has a scheduled MRI for his right knee to see if there is any structural damage. Over the last several days he has developed an effusion. Denies any bruising. No epistaxis. No blood in his urine. No blood in his stool. No bruising to his leg. No fever or redness. Prior similar symptoms: No Recent Illness/Hospitalizat ion: No PFSH PFSH Medical History Wears glasses Alcohol use Heartburn Non-smoker History of echocardiogram History of stress test Cardiology follow-up encounter Hypertriglyceridemia Palpitations Fatigue Myalgia Chest pain Light headed Home Medications ???Medication ???Instructions ???Recorded ???Last Taken ???Type apixaban 5 mg (74 tabs) tablets in See Rx Instructions PO .COMPLEX 11/29/24 Unknown Rx a dose pack (Eliquis DVT-PE Treat #74 tabs 30D Start) Allergy/AdvReac Type Severity Reaction Status Date / Time No Known Allergies Allergy Verified 12/01/24 15:06 Family History Father CAD (coronary artery disease) Hyperlipidemia Grandfather Myocardial infarction Grandmother Myocardial infarction Surgical History History of hydrocelectomy Hx of vasectomy Social History household members: family housing: house Smoking Status: Never smoker alcohol intake: current alcohol intake frequency: a few times a week Alcohol type: wine substance use type: does not use caffeine: Yes Type: coffee and tea ROS ROS ED ROS Narrative Denies recent illness. Constitutional Constitutional ED: Denies chills or fever(s) Eyes Eyes: Denies blurry vision ENT ENT ED: Denies ear pain Cardiovascular Cardiovascular: Denies chest pain Respiratory/Chest Respiratory/Chest: Denies cough or dyspnea Gastrointestinal Gastrointestinal: Denies abdominal pain Genitourinary Genitourinary ED: Denies dysuria or hematuria Musculoskeletal Musculoskeletal: Denies arthralgias or back pain Integumentary Denies abscess or Abrasions Neurologic Neurologic: Denies headache(s) Psychiatric Psychiatric: Denies anxiety Endocrine Endocrinology: Denies polydipsia Hematologic/Lymphati c Hematologic/Lymphati c: Reports lymphadenopathy; Denies easy bleeding Allergic/Immunologic Allergic/Immunologic ED: Denies mouth swelling, tongue swelling or urticaria EXAM Physical Exam Narrative Exam Narrative: Well-appearing 49-year-old male. Vital signs are stable afebrile. Pulse ox 100% on room air no hypoxia. No distress. H EENT exam pupils round react light. Moist mucous membranes. Lungs clear to auscultation bilaterally. Heart regular rhythm no murmur. Chest wall ribs nontender. Abdomen soft nontender. Moving all 4 extremities. He has an obvious effusion to his right knee mild swelling to his right calf. He has a known right calf DVT. He has a small to moderate effusion to the right knee. He is able to flex send his right knee with some discomfort. There is no cellulitis. No signs of a septic joint. Right hip is nontender. He has normal dorsi plantarflexion of his right ankle. Normal strength. Normal sensation. Normal DP pulse. Left lower extremity is nontender and unremarkable. Normal exam. Patient is awake and alert. The right knee structurally his ACL and PCL appear to be intact as does his MCL and LCL. Quadriceps patellar tendons intact. He can extend the knee to 180 degrees. He is able do flexion with mild discomfort. Const Vital Signs: 12/01/24 15:04 Temperature 97.1 F L Temperature Source Temporal Pulse Rate 58 L Respi (more content not included)... Normal [facility]TR[facility] ([id number]) 1975 M Date Time Provider Department 11/29/24 [facility] PEDS[facility] During your visit today, we recorded the following information about you: Clari Estevez 11/29/2024 12:16 PM Signed Patient would like to hot die picker CD of x-ray done on 11/19/24. Geri Scott PSS 11/29/2024 1:23 PM Signed CD READY FOR UNDERWRITING ANALYST AT [facility] [place] RADIOLOGY Allergies As of Date: 11/29/2024 (No Known Allergies) Date Reviewed: 11/19/2024 Reviewed by: Shae Sharp MA - Fully Assessed Problem List As Of Date: 11/29/2024 (None) Encounter Status:Closed by CLARI ESTEVEZ on 11/29/24 Normal [facility] Emergency Department Summary on 11-29-2024 Emergency Department Summary [facility] Medical Records Department [address] [place] [address] Emergency Department Summary 11/29/24 MR#: [id number] Acct: [id number] Name: ASHLYN LEE Rep #: [id number] : 1975 49 From: Rl Buenrostro DO PCP: Care Physician,No Primary Status:REG ER Location: ED HPI History of Present Illness Chief Complaint: Lower Extremity Injury Narrative Narrative: Patient is a 49-year-old male with no known significant past medical history who presented to the emergency department from the orthopedic office with a chief complaint of right calf pain. Patient states that he recently took a trip to [facility] and notes that he has some pain in his catheter been worsening. He states that the injury to his knee was right before the trip and that is why he was following up with them in the outpatient setting. He states that they scheduled an MRI for his right knee but were concerned that he may have a blood clot in his leg therefore they sent him here for the valuation management. Patient denies any history of blood clots. [facility] Medical History Wears glasses Alcohol use Heartburn Non-smoker History of echocardiogram History of stress test Cardiology follow-up encounter Hypertriglyceridemia Palpitations Fatigue Myalgia Chest pain Light headed Home Medications ???Medication ???Instructions ???Recorded ???Last Taken ???Type NK 10/16/22 Unknown History Allergy/AdvReac Type Severity Reaction Status Date / Time No Known Allergies Allergy Verified 11/29/24 16:13 Family History Father CAD (coronary artery disease) Hyperlipidemia Grandfather Myocardial infarction Grandmother Myocardial infarction Surgical History History of hydrocelectomy Hx of vasectomy Social History Smoking Status: Never smoker alcohol intake: current alcohol intake frequency: a few times a week Alcohol type: wine substance use type: does not use caffeine: Yes Type: coffee and tea ROS ROS ED ROS Narrative Constitutional: Denies fevers, chills, headaches Cardiovascular: Denies chest pain Respiratory: Denies shortness of breath Neurological: Denies numbness, weakness, tingling Musculoskeletal: Complains of right knee pain as noted above as well as calf pain Skin: Denies rashes or lesions EXAM Physical Exam Narrative Exam Narrative: General: Patient was lying in bed rest comfortably did not appear to be in acute distress Head: Atraumatic, normocephalic Eyes: PERRL bilaterally, EOMI bilateral, no conjunctival injection noted Neck: Soft, supple, trachea midline Cardiovascular: Regular rate and rhythm no murmurs gallops rubs noted Respiratory: Clear to auscultation bilaterally Abdomen: Soft, nondistended, nontender to palpation Musculoskeletal: Patient has some mild tenderness to palpation in his posterior calf on the right side, compartments are soft and compressible Extremities: DP pulses +2/4 in the bilateral lower extremities is 5/5 strength noted in the bilateral upper and lower extremities Neurological: Patient following commands knew that he was at [facility] year is 2024 Skin: Warm, dry, intact no rashes or lesions noted Const Vital Signs: 11/29/24 16:11 Temperature 98.2 F Temperature Source Oral Pulse Rate 65 Respiratory Rate 18 Blood Pressure 110/94 H Blood Pressure Mean 99 Pulse Ox 100 Oxygen Delivery Method Room Air MDM MDM MDM Narrative Medical decision making narrative: Patient is a 49-year-old male who presented to the emergency department the chief complaint of concern for a blood clot in his right calf after a recent trip to [facility]. On the differential diagnose includes but not limited to musculoskeletal strain, DVT, superficial venous thrombosis. Once workup is obtained reviewed he will be reevaluated. Patient's venous Doppler was positive for a DVT he will be started on Eliquis. He will be given follow-up with vascular surgery Dr. Duarte. He was advised to avoid high risk activities and if he falls in its his head he needs to be evaluated immediately as there is a chance that he has a head bleed. He verbalized understanding of this as well as his family member at bedside. They are agreeable this plan all question concerns answered he is discharged home in stable condition. Discharge Plan Triage Chief Complaint: Lower Extremity Injury ED Provider: Rl Buenrostro Dx/Rx/DC Orders Clinical Impression: Acute deep vein thrombosis (DVT) of right lower extremity Instructions: DVT Complications Prescriptions: No Action NK Primary Care Provider: Care (more content not included)... Normal [facility] Venous Duplex US, Unilateral on 11-29-2024 Venous Duplex US, Unilateral [facility] [address] [place] [address] Venous Duplex US, Unilateral 11/29/24 1627 MR#: [id number] Acct: [id number] Name: ASHLYN LEE Rep #: [id number] : 1975 49 From: Hemant Newman MD Attending Dr: Status: DEP ER Ordering Dr: Rl Buenrostro DO Date: 11/29/24 Location: ED Sex: M C Admitted: Reason For Study Reason For Study: RLE PAin/ Swelling RIGHT LEFT GSV is normal. CFV is compressible, spontaneous, phasic, competent, CFV is compressible, spontaneous, phasic, competent and demonstrates normal augmentation. and demonstrates normal augmentation. FV is compressible, spontaneous, phasic, competent and demonstrates normal augmentation. POP V is compressible, spontaneous, and phasic. T/P Trunk is compressible. Acute deep vein thrombosis is noted in the Gastrocnemius V. It is dilated and NONCOMPRESSIBLE. Acute deep vein thrombosis is noted in the Soleus Vein. It is dilated and NONCOMPRESSIBLE. Acute deep vein thrombosis is noted in the PTV. It is dilated and NONCOMPRESSIBLE. RT PerV is compressible. Procedure This is a venous duplex using B-mode, color flow and spectral Doppler. Exam performed portable in ED. The exam was diagnostic. A preliminary report was called and/or faxed to Dr. Buenrostro. VL/Venous Duplex US, Unilateral Interpretation Summary Acute deep vein thrombosis is noted in the right posterior tibial vein. Acute deep vein thrombosis is noted in the right soleus vein. Acute deep vein thrombosis is noted in the right gastrocnemius vein. The remainder of the right lower extremity deep venous system is patent and compressible. Valvular competence appears intact within the proximal deep venous system on the right . The right great saphenous vein appears patent and compressible segmentally. The left common femoral vein is patent and compressible . Ordering Physician: Rl Buenrostro Referring Physician: N/A Performed By: Abhi Duncan, Darrian 11/29/241955 Date Hemant Newman MD CC: Dr. Rl Buenrostro, DO; No Primary Care Physician Date Dictated: 11/29/241626 Date Transcribed: 11/29/241955 Tool And Machine Maintainer: Bright [facility] 11-19-2024 [facility] Office Visit (UCWSTR) BERTRAND LEE ([id number]) 1975 M Date Time Provider Department 11/19/24 12:00 PM BLAINE DRAKE [facility] During your visit today, we recorded the following information about you: Temperature Pulse Respiration Blood pressure 98.2 degrees 70/minute 16/minute 122/68 Weight 70.3 kg Blaine Drake FRETTED INSTRUMENT INSPECTOR.RABBIT DRESSER 11/19/2024 1:37 PM Signed [facility] Subjective Bertrand Lee is a 49 year old male. HPI Bertrand Lee is a 49 year old male who presents today for CC of sudden onset left knee pain. This started 2 hours ago. Has tried rest/crutches for relief. Symptoms are worsened by standing/rom. Risk factors hx of multiple right knee injury in past. .Patient presents with: Knee Pain: right x 2 hours, denies injury PAST MEDICAL HISTORY Diagnosis Date Undiagnosed cardiac murmurs 2000 PAST SURGICAL HISTORY Procedure Laterality Date VASECTOMY UNI/BI SPX W/POSTOP SEMEN EXAMS 2013 also had f/u vasectomy surgery a few months later ALLERGIES Patient has no known allergies. MEDICATIONS No prescriptions on file. FAMILY HISTORY Problem Relation Age of Onset None Mother Heart Father CAD, CABG 51 Hyperlipidemia Father Heart Paternal Grandmother Heart Paternal Grandfather No Known Problems Sister No Known Problems Brother No Known Problems Brother No Known Problems Brother No Known Problems Daughter No Known Problems Son Social History Tobacco Use Smoking status: Never Smokeless tobacco: Never Substance Use Topics Alcohol use: Yes Alcohol/week: 2.0 standard drinks of alcohol Types: 2 Glasses of Wine (5oz) per week Drug use: No Patient presents with: Knee Pain: right x 2 hours, denies injury HPI Review of Systems Objective BP 122/68 Pulse 70 Temp 36.8 ?C (98.2 ?F) Resp 16 Wt 70.3 kg (155 lb) SpO2 98% BMI 23.92 kg/m? Physical Exam Constitutional: General: He is not in acute distress. Appearance: He is not toxic-appearing or diaphoretic. HENT: Head: Normocephalic and atraumatic. Pulmonary: Effort: Pulmonary effort is normal. No accessory muscle usage or respiratory distress. Musculoskeletal: Right knee: No LCL laxity or MCL laxity. Left knee: No LCL laxity or MCL laxity. Legs: Neurological: Mental Status: He is alert and oriented to person, place, and time. ASSESSMENT/PLAN: 1. Acute pain of right knee - ICD9: 719.46, ICD10: M25.561 Xray as below Will refer to ortho d/t severity of pain with rom and no known injury. Otc management advised. - XR KNEE POST OP 3V AP/LAT/MERCHANT RIGHT IMPRESSION: Mild degenerative changes in the right knee. Dictated by : KARON MA MD - CONSULT TO ORTHOPAEDICS Blaine Drake APRN.[facility] Procedures Allergies As of Date: 11/19/2024 (No Known Allergies) Date Reviewed: 11/19/2024 Reviewed by: Shae Sharp MA - Fully Assessed Reason for Visit: Knee Pain [132] Cmt: right x 2 hours, denies injury Primary Visit Diagnosis:Acute pain of right knee [M25.561] Order(s):XR KNEE POST OP 3V AP/LAT/MERCHANT RIGHT [[id number]] Order #: [id number]. #:[id number] CONSULT TO ORTHOPAEDICS [9026] Order #: [id number]: 1 FUTURE Problem List As Of Date: 11/19/2024 (None) Encounter Status:Closed by BLAINE DRAKE on 11/19/24 [facility] XR KNEE 3V AP/LAT/MERCHANT R Ton 11-19-2024 XR KNEE 3V AP/LAT/MERCHANT RT * * *Final Report* * * DATE OF EXAM: Nov 19 2024 12:34PM WOX 5209 - XR KNEE 3V AP/LAT/MERCHANT RT / PROCEDURE REASON: Acute pain of right knee * * * * Physician Interpretation * * * * EXAM TITLE: XR KNEE 3V AP/LAT/MERCHANT RT EXAM DATE/TIME: 11/19/2024 12:34 PM COMPARISON: None. CLINICAL INDICATION/HISTORY: Acute knee pain. TECHNIQUE: AP/PA, lateral and sunrise views of the right knee are presented. FINDINGS: No acute fractures or subluxations are noted. Marginal bony spurs are visualized. The joint spaces are well preserved. There is trace/small joint effusion. The mineralization of the bones is normal. There is no significant soft tissue swelling. IMPRESSION: Mild degenerative changes in the right knee. Tool And Machine Maintainer: PSCB Transcribe Date/Time: Nov 19 2024 1:16P Dictated by : KARON MA MD This examination was interpreted and the report reviewed and electronically signed by: KARON MA MD on Nov 19 2024 1:17PM EST [id number] Normal [facility] XR Knee AP and Lateral and M car 11-19-2024 IMPRESSION: Mild degenerative changes in the right knee. Tool And Machine Maintainer: BETHEL Transcribe Date/Time: Nov 19 2024 1:16P Dictated by : KARON MA MD This examination was interpreted and the report reviewed and electronically signed by: KARON MA MD on Nov 19 2024 1:17PM EST DIVISION OF RADIOLOGY * * *Final Report* * * DATE OF EXAM: Nov 19 2024 12:34PM WOX 5209 - XR KNEE 3V AP/LAT/MERCHANT RT / PROCEDURE REASON: Acute pain of right knee * * * * Physician Interpretation * * * * EXAM TITLE: XR KNEE 3V AP/LAT/MERCHANT RT EXAM DATE/TIME: 11/19/2024 12:34 PM COMPARISON: None. CLINICAL INDICATION/HISTORY: Acute knee pain. TECHNIQUE: AP/PA, lateral and sunrise views of the right knee are presented. FINDINGS: No acute fractures or subluxations are noted. Marginal bony spurs are visualized. The joint spaces are well preserved. There is trace/small joint effusion. The mineralization of the bones is normal. There is no significant soft tissue swelling. DIVISION OF RADIOLOGY Provider, [facility] - 11/19/2024 * * *Final Report* * * DATE OF EXAM: Nov 19 2024 12:34PM WOX 5209 - XR KNEE 3V AP/LAT/MERCHANT RT / PROCEDURE REASON: Acute pain of right knee * * * * Physician Interpretation * * * * EXAM TITLE: XR KNEE 3V AP/LAT/MERCHANT RT EXAM DATE/TIME: 11/19/2024 12:34 PM COMPARISON: None. CLINICAL INDICATION/HISTORY: Acute knee pain. TECHNIQUE: AP/PA, lateral and sunrise views of the right knee are presented. FINDINGS: No acute fractures or subluxations are noted. Marginal bony spurs are visualized. The joint spaces are well preserved. There is trace/small joint effusion. The mineralization of the bones is normal. There is no significant soft tissue swelling. IMPRESSION IMPRESSION: Mild degenerative changes in the right knee. Tool And Machine Maintainer: PSCB Transcribe Date/Time: Nov 19 2024 1:16P Dictated by : KARON MA MD This examination was interpreted and the report reviewed and electronically signed by: KARON MA MD on Nov 19 2024 1:17PM EST [facility] Radiology Study observation (narrative) [facility] XR Knee AP and Lateral and M erchantsOrdered By: Ccf Provider on 11-19-2024 [facility] CNOVon 10-15-2024 CNOV Office Visit (UCWSTR) BERTRAND LEE ([id number]) 1975 M Date Time Provider Department 10/15/24 10:15 AM EMILY DUNNE [facility] During your visit today, we recorded the following information about you: Temperature Pulse Respiration Blood pressure 99.8 degrees 94/minute 20/minute 122/94 Weight 70 kg Emily Dunne APRN.RABBIT DRESSER 10/15/2024 10:15 AM Signed This note was created using [employer]. Subjective Bertrand Lee is a 49 year old male. Presents for fever, chills, body ache and congestion x36 hours. Patient reports he is not sure what his temperature was last night night but his told him he had a fever. Objective BP 122/94 Pulse 94 Temp 37.7 ?C (99.8 ?F) Resp 20 Wt 70 kg (154 lb 5.2 oz) SpO2 96% BMI 23.81 kg/m? Physical Exam PHYSICAL EXAMINATION: General appearance: Well appearing, alert, in no acute distress, well-hydrated, well nourished. Nose/Sinuses: Positive findings: mucosa erythematous and swollen Oropharynx: Lips, mucosa, and tongue normal, teeth and gums normal, oropharynx normal Neck: Positive findings: superficial cervical adenopathy Lungs: Lungs clear to auscultation. No wheezing, rhonchi, rales. Heart: RRR without murmur, gallop, or rubs. No ectopy Assessment and Plan ASSESSMENT/PLAN: 1. URI with cough and congestion - ICD9: 465.9, ICD10: J06.9 (primary diagnosis) - Discussed viral etiology and rationale for treatment. - Symptomatic treatment with prn analgesia - Supportive care with fluids and rest - INFLUENZA AANDB MOLECULAR (POC) 2. Fever, unspecified fever cause - ICD9: 780.60, ICD10: R50.9 - INFLUENZA AANDB MOLECULAR (POC) 3. Influenza A - ICD9: 487.1, ICD10: J10.1 - OSELTAMIVIR 75 MG CAPSULE Emily Dunne, FRETTED INSTRUMENT INSPECTOR.RABBIT DRESSER Allergies As of Date: 10/15/2024 (No Known Allergies) Date Reviewed: 10/15/2024 Reviewed by: Martita Leslie LPN - Fully Assessed Reason for Visit: Fever [47] Cmt: Body aches, nasal congestion, headache x 36 hours Primary Visit Diagnosis:URI with cough and congestion [J06.9] Other Visit Diagnoses:Fever, unspecified fever cause [R50.9] Influenza A [J10.1] Order(s):INFLUENZA AANDB MOLECULAR (POC) [[id number]] Order #: [id number]. #:[id number] oseltamivir (TAMIFLU) 75 mg capsuleTake 1 capsule by mouth two times a day for 5 days.Disp: 10 capsuleRfl: 0 Prescriptions as of 10/15/2024 - oseltamivir (TAMIFLU) 75 mg capsule Take 1 capsule by mouth two times a day for 5 days. Problem List As Of Date: 10/15/2024 (None) Prescriptions ordered this encounter Disp Refills Start End OSELTAMIVIR 75 MG CAPSULE 10 c* 0 10/15/2024 10/20/2024 Route: ORAL Sig: Take 1 capsule by mouth two times a day for 5 days. Disposition: Return if symptoms worsen or fail to improve. Follow-up and Disposition History for Encounter Date Provider Department Center 10/15/2024 [id number]-HABEBKEMILY DUNNE [facility] Encounter Status:Closed by EMILY DUNNE on 10/15/24 [facility] INFLUENZA A&B MOLECULAR (POC )on 10-15-2024 Flu A (POCT) Positive Abnormal Negative [facility] Comment on above: Location: [facility], [address], [place], [address] Interpretation and review of laboratory results Abnormal [facility] Procedural Control Valid [facility] Location:[facility], [address], [place], [address] [facility] POINT OF CARE [facility] CNPNon 06-07-2024 CNPN Telephone (FAMPWS) BERTRAND LEE ([id number]) 1975 M Date Time Provider Department 06/07/24 NO PCP FAMPWS During your visit today, we recorded the following information about you: Rachel Golden LPN 06/07/2024 4:18 PM Signed Pt calls to report he was seen in on 05/26/24 and referred to [facility]. Pt is requesting order be faxed to: [phone]. Order faxed as requested. Rachel Golden LPN Allergies As of Date: 06/07/2024 (No Known Allergies) Date Reviewed: 05/26/2024 Reviewed by: Mary Beth Edwards MA - Fully Assessed Reason for Visit: Consult [502] Problem List As Of Date: 06/07/2024 (None) Encounter Status:Closed by RACHEL GOLDEN on 06/07/24 Normal [facility] CNOVon 05-26-2024 CNOV Office Visit (UCWSTR) BERTRAND LEE ([id number]) 1975 M Date Time Provider Department 05/26/24 2:45 PM BLAINE DRAKE During your visit today, we recorded the following information about you: Temperature Pulse Respiration Blood pressure 98.2 degrees 64/minute 16/minute 124/86 Weight 72.2 kg Blaine Drake APRN.CNP 05/26/2024 3:09 PM Signed Subjective HPI HPI Bertrand Lee is a 49 year old male who presents today for CC of lump on right leg. This started 5 years ago/growing and now tender. Has tried nothing for relief. Symptoms are worsened by nothing. Denies injury. .Patient presents with: Lump: On RIGHT lower leg/ calf area PAST MEDICAL HISTORY Diagnosis Date Undiagnosed cardiac murmurs 2000 PAST SURGICAL HISTORY Procedure Laterality Date VASECTOMY UNI/BI SPX W/POSTOP SEMEN EXAMS 2013 also had f/u vasectomy surgery a few months later ALLERGIES Patient has no known allergies. MEDICATIONS No prescriptions on file. FAMILY HISTORY Problem Relation Age of Onset None Mother Heart Father CAD, CABG 51 Hyperlipidemia Father Heart Paternal Grandmother Heart Paternal Grandfather No Known Problems Sister No Known Problems Brother No Known Problems Brother No Known Problems Brother No Known Problems Daughter No Known Problems Son Social History Tobacco Use Smoking status: Never Smokeless tobacco: Never Substance Use Topics Alcohol use: Yes Alcohol/week: 2.0 standard drinks of alcohol Types: 2 Glasses of Wine (5oz) per week Drug use: No ROS Objective Blood pressure 124/86, pulse 64, temperature 36.8 ?C (98.2 ?F), temperature source Right Tympanic, resp. rate 16, weight 72.2 kg (159 lb 2.8 oz), SpO2 98%. Physical Exam Constitutional: General: He is not in acute distress. Appearance: He is not toxic-appearing or diaphoretic. HENT: Head: Normocephalic and atraumatic. Pulmonary: Effort: Pulmonary effort is normal. No accessory muscle usage or respiratory distress. Skin: Neurological: Mental Status: He is alert and oriented to person, place, and time. ASSESSMENT/PLAN: 1. Skin mass - ICD9: 782.2, ICD10: R22.9 Refer to dermatology Call [facility] for appointment. - CONSULT TO DERMATOLOGY Blaine Vidal, FRETTED INSTRUMENT INSPECTOR.RABBIT DRESSER Allergies As of Date: 05/26/2024 (No Known Allergies) Date Reviewed: 05/26/2024 Reviewed by: Mary Beth Edwards MA - Fully Assessed Reason for Visit: Lump [48089] Cmt: On RIGHT lower leg/ calf area Primary Visit Diagnosis:Skin mass [R22.9] Order(s):CONSULT TO DERMATOLOGY [9006] Order #: [id number]: 1 FUTURE Problem List As Of Date: 05/26/2024 (None) Encounter Status:Closed by BLAINE DRAKE on 05/26/24 Normal [facility] Sims Basophil percentageOrdered B y: Dr. Garcia on 11-28-2022 Bilirubin [Mass/Vol] 0.70 mg/dL 0.20-1.00 [facility] Comment on above: For patients on eltr ombopag therapy, use of Dimension [place] TBIL is not recommended. Cholesterol [Mass/Vol] 208 mg/dL <200 [facility] Comment on above: <200 mg/dL Desirable 200-240 mg/dL Borderline >240 mg/dL High Risk Protein [Mass/Vol] 7.4 g/dL 6.4-8.2 [facility] Triglyceride [Mass/Vol] 50 mg/dL <199 [facility] Comment on above: The drugs N-Acetylcy steine and Metamizole may falsely depress this assay.Serum Triglycerides Reference Interval Normal <150 mg/dL Borderline high 150 - 199 mg/dL High 200 - 499 mg/dL Very High > or = 500 mg/dL Direct bilirubinOrdered By: Dr. Garcia on 11-28-2022 Bilirubin.direct [Mass/Vol] 0.19 mg/dL 0.00-0.30 [facility] Laboratory - Chemistry and C hemistry - challengeOrdered By: Dr. Garcia on 11-28-2022 ALP [Catalytic activity/Vol] 60 U/L 45-117 [facility] ALT [Catalytic activity/Vol] 25 U/L 16-61 [facility] Globulin (S) [Mass/Vol] 3.2 g/dL 2.2-4.2 [facility] Serum or plasma albumin rafia urement (mass/volume)Ordered By: Dr. Garcia on 11-28-2022 Albumin [Mass/Vol] 4.2 g/dL 3.2-5.0 [facility] Serum or plasma cholesterol in HDL measurement (mass/volume)Ordered By: Dr. Garcia on 11-28-2022 Cholesterol in HDL [Mass/Vol] 80 mg/dL >40 [facility] Comment on above: The drugs N-Acetylcy steine and Metamizole may falsely depress this assay. Reference Range HDL <40 mg/dL Low HDL Cholesterol HDL >or= 60 mg/dL High HDL Cholesterol Serum or plasma cholesterol in VLDL measurement (mass/volume)Ordered By: Dr. Garcia on 11-28-2022 Cholesterol in VLDL [Mass/Vol] 10 mg/dL 5-40 [facility] Serum or plasma low density lipoprotein (LDL) cholesterol measurement (mass/volume)Ordered By: Dr. Garcia on 11-28-2022 Cholesterol in LDL [Mass/Vol] 118 mg/dL 0-130 [facility] Thin prep Papanicolaou smear with manual screeningOrdered By: Dr. Garcia on 11-28-2022 Thin prep Papanicolaou smear with manual screening 28 U/L 15-37 [facility] Vital Signs Date Time Vital Sign Value Performing Clinician Facility 02-22-2025 09:05-0400 Body temperature 98 [degF] No Primary Care Physician [facility] 02-22-2025 09:05-0400 Body weight 71.66 kg No Primary Care Physician [facility] 02-22-2025 09:05-0400 Diastolic blood pressure 76 mm[Hg] No Primary Care Physician [facility] 02-22-2025 09:05-0400 Heart rate 73 /min No Primary Care Physician [facility] 02-22-2025 09:05-0400 Respiratory rate 16 /min No Primary Care Physician [facility] 02-22-2025 09:05-0400 SaO2% (BldA) [Mass fraction] 97 % No Primary Care Physician [facility] 02-22-2025 09:05-0400 Systolic blood pressure 108 mm[Hg] No Primary Care Physician [facility] 12-16-2024 08:42-0400 Body temperature 98 [degF] No Primary Care Physician [facility] 12-16-2024 08:42-0400 Body weight 68.49 kg No Primary Care Physician [facility] 12-16-2024 08:42-0400 Diastolic blood pressure 73 mm[Hg] No Primary Care Physician [facility] 12-16-2024 08:42-0400 Heart rate 63 /min No Primary Care Physician [facility] 12-16-2024 08:42-0400 Respiratory rate 16 /min No Primary Care Physician [facility] 12-16-2024 08:42-0400 SaO2% (BldA) [Mass fraction] 99 % No Primary Care Physician [facility] 12-16-2024 08:42-0400 Systolic blood pressure 111 mm[Hg] No Primary Care Physician [facility] 12-01-2024 15:04-0400 Body height 170.18 cm No Primary Care Physician [facility] 12-01-2024 15:04-0400 Body temperature 97.1 [degF] No Primary Care Physician [facility] 12-01-2024 15:04-0400 Diastolic blood pressure 86 mm[Hg] No Primary Care Physician [facility] 12-01-2024 15:04-0400 Heart rate 58 /min No Primary Care Physician [facility] 12-01-2024 15:04-0400 Respiratory rate 13 /min No Primary Care Physician [facility] 12-01-2024 15:04-0400 SaO2% (BldA) [Mass fraction] 100 % No Primary Care Physician [facility] 12-01-2024 15:04-0400 Systolic blood pressure 123 mm[Hg] No Primary Care Physician [facility] 11-29-2024 17:11-0400 Body temperature 98 [degF] No Primary Care Physician [facility] 11-29-2024 17:11-0400 Diastolic blood pressure 76 mm[Hg] No Primary Care Physician [facility] 11-29-2024 17:11-0400 Heart rate 62 /min No Primary Care Physician [facility] 11-29-2024 17:11-0400 Respiratory rate 14 /min No Primary Care Physician [facility] 11-29-2024 17:11-0400 SaO2% (BldA) [Mass fraction] 99 % No Primary Care Physician [facility] 11-29-2024 17:11-0400 Systolic blood pressure 109 mm[Hg] No Primary Care Physician [facility] 11-29-2024 16:11-0400 Body height 170.18 cm No Primary Care Physician [facility] 11-29-2024 16:11-0400 Body mass index (BMI) [Ratio] 24 kg/m2 No Primary Care Physician [facility] 11-29-2024 16:11-0400 Body weight 69.44 kg No Primary Care Physician [facility] 11-19-2024 12:03-0400 Body mass index (BMI) [Ratio] 23.92 kg/m2 Blaine Drake APRN.RABBIT DRESSER Work Phone: [facility] 11-19-2024 12:03-0400 Body temperature 98.2 [degF] Blaine Drake APRN.RABBIT DRESSER Work Phone: [facility] 11-19-2024 12:03-0400 Body weight 70.31 kg Blaine Drake APRN.RABBIT DRESSER Work Phone: [facility] 11-19-2024 12:03-0400 Diastolic blood pressure 68 mm[Hg] Blaine Drake APRN.RABBIT DRESSER Work Phone: [facility] 11-19-2024 12:03-0400 Heart rate 70 /min Blaine Drake APRN.RABBIT DRESSER Work Phone: [facility] 11-19-2024 12:03-0400 Respiratory rate 16 /min Blaine Drake APRN.RABBIT DRESSER Work Phone: [facility] 11-19-2024 12:03-0400 SaO2% (BldA) [Mass fraction] 98 % Blaine Drake APRN.RABBIT DRESSER Work Phone: [facility] 11-19-2024 12:03-0400 Systolic blood pressure 122 mm[Hg] Blaine Drake APRN.RABBIT DRESSER Work Phone: [facility] 10-15-2024 09:54-0500 Body mass index (BMI) [Ratio] 23.81 kg/m2 Emily Dunne APRN.RABBIT DRESSER Work Phone: [facility] 10-15-2024 09:54-0500 Body temperature 99.81 [degF] Emily Dunne APRN.RABBIT DRESSER Work Phone: [facility] 10-15-2024 09:54-0500 Body weight 70 kg Emily Dunne APRN.RABBIT DRESSER Work Phone: [facility] 10-15-2024 09:54-0500 Diastolic blood pressure 94 mm[Hg] Emily Dunne APRN.RABBIT DRESSER Work Phone: [facility] 10-15-2024 09:54-0500 Heart rate 94 /min Emily Dunne APRN.RABBIT DRESSER Work Phone: [facility] 10-15-2024 09:54-0500 Respiratory rate 20 /min Emily Dunne APRN.RABBIT DRESSER Work Phone: [facility] 10-15-2024 09:54-0500 SaO2% (BldA) [Mass fraction] 96 % Emily Dunne APRN.RABBIT DRESSER Work Phone: [facility] 10-15-2024 09:54-0500 Systolic blood pressure 122 mm[Hg] Emily Dunne APRN.RABBIT DRESSER Work Phone: [facility] 05-26-2024 14:44-0400 Body mass index (BMI) [Ratio] 24.56 kg/m2 Blaine Drake APRN.RABBIT DRESSER Work Phone: [facility] 05-26-2024 14:44-0400 Body temperature 98.2 [degF] Blaine Drake APRN.RABBIT DRESSER Work Phone: [facility] 05-26-2024 14:44-0400 Body weight 72.2 kg Blaine Drake APRN.RABBIT DRESSER Work Phone: [facility] 05-26-2024 14:44-0400 Diastolic blood pressure 86 mm[Hg] Blaine Drake APRN.RABBIT DRESSER Work Phone: [facility] 05-26-2024 14:44-0400 Heart rate 64 /min Blaine Drake APRN.RABBIT DRESSER Work Phone: [facility] 05-26-2024 14:44-0400 Respiratory rate 16 /min Blaine Drake FRETTED INSTRUMENT INSPECTOR.RABBIT DRESSER Work Phone: [facility] 05-26-2024 14:44-0400 SaO2% (BldA) [Mass fraction] 98 % Blaine Drake FRETTED INSTRUMENT INSPECTOR.RABBIT DRESSER Work Phone: [facility] 05-26-2024 14:44-0400 Systolic blood pressure 124 mm[Hg] Blaine Drake FRETTED INSTRUMENT INSPECTOR.RABBIT DRESSER Work Phone: [facility] 02-10-2023 14:45-0400 Body temperature 97.3 [degF] No Primary Care Physician [facility] 02-10-2023 14:45-0400 Diastolic blood pressure 77 mm[Hg] No Primary Care Physician [facility] 02-10-2023 14:45-0400 Heart rate 58 /min No Primary Care Physician [facility] 02-10-2023 14:45-0400 Respiratory rate 16 /min No Primary Care Physician [facility] 02-10-2023 14:45-0400 SaO2% (BldA) [Mass fraction] 98 % No Primary Care Physician [facility] 02-10-2023 14:45-0400 Systolic blood pressure 103 mm[Hg] No Primary Care Physician [facility] 02-10-2023 13:14-0400 Body height 170.18 cm No Primary Care Physician [facility] 02-10-2023 13:14-0400 Body mass index (BMI) [Ratio] 23.8 kg/m2 No Primary Care Physician [facility] 02-10-2023 13:14-0400 Body weight 69 kg No Primary Care Physician [facility] 12-12-2022 11:30-0400 Body height 170.18 cm No Primary Care Physician [facility] 12-12-2022 11:30-0400 Body mass index (BMI) [Ratio] 24.3 kg/m2 No Primary Care Physician [facility] 12-12-2022 11:30-0400 Body weight 70.3 kg No Primary Care Physician [facility] 11-05-2022 14:35-0500 Body height 170.18 cm No Primary Care Physician [facility] 11-05-2022 14:35-0500 Body mass index (BMI) [Ratio] 24.1 kg/m2 No Primary Care Physician [facility] 11-05-2022 14:35-0500 Body weight 69.85 kg No Primary Care Physician [facility] 11-05-2022 14:35-0500 Diastolic blood pressure 76 mm[Hg] No Primary Care Physician [facility] 11-05-2022 14:35-0500 Heart rate 73 /min No Primary Care Physician [facility] 11-05-2022 14:35-0500 Respiratory rate 16 /min No Primary Care Physician [facility] 11-05-2022 14:35-0500 Systolic blood pressure 118 mm[Hg] No Primary Care Physician [facility] Encounters Encounter Date Encounter Type Care Provider Facility Start: 03-03-2025 ambulatory Clari RIVERO Facility:[facility] Start: 02-22-2025 End: 02-22-2025 ambulatory No Primary Care Physician [facility] Work Phone: Start: 02-22-2025 End: 02-22-2025 Patient encounter procedure Sapna RIVERO [facility] Work Phone: Start: 12-16-2024 End: 12-16-2024 Patient encounter procedure Sapna RIVERO -[facility] Work Phone: Start: 12-16-2024 End: 12-16-2024 ambulatory Sapna Grant [place] [place] Start: 12-01-2024 End: 12-01-2024 Emergency department patient visit No Primary Care Physician -Emergency Department Work Phone: Start: 11-29-2024 End: 11-29-2024 Emergency department patient visit No Primary Care Physician -Emergency Department Work Phone: Start: 11-29-2024 End: 11-29-2024 Telephone encounter [facility] [place] Start: 11-19-2024 End: 11-19-2024 Patient encounter procedure Blaine Drake APRN.CNP Work Phone: [facility] Comment on above: Acute pain of right knee (Primary Dx) Start: 11-19-2024 End: 11-19-2024 ambulatory BLAINE DRAKE Facility:[facility] Start: 11-19-2024 End: 11-19-2024 Subsequent hospital visit by physician Jonathan [facility] Work Phone: Radiology Comment on above: Acute pain of right knee [M25.561] Start: 10-15-2024 End: 10-15-2024 ambulatory [facility] Facility:[facility] Start: 10-15-2024 End: 10-15-2024 Patient encounter procedure Emily Dunne APRN.RABBIT DRESSER Work Phone: [facility] Comment on above: URI with cough and c ongestion (Primary Dx); Fever, unspecified fever cause; Influenza A Start: 06-07-2024 End: 06-07-2024 Telephone encounter No Pcp [facility] Comment on above: Consult Start: 05-26-2024 End: 05-26-2024 ambulatory [facility] Facility:[facility] Start: 05-26-2024 End: 05-26-2024 Patient encounter procedure Blaine Drake APRN.RABBIT DRESSER Work Phone: [facility] Comment on above: Skin mass (Primary D x) Start: 02-10-2023 Non-patient / Non-visit No Zahra stephenson Care Physician [facility] Start: 02-10-2023 End: 02-10-2023 Admission to same day surgery center No Primary Care Physician [facility]-Endoscopy Start: 02-10-2023 End: 02-10-2023 ambulatory No Primary Care Physician [facility] Work Phone: Start: 12-24-2022 Non-patient / Non-visit No Zahra stephenson Care Physician [facility] Start: 12-15-2022 End: 12-15-2022 ambulatory No Primary Care Physician [facility] Work Phone: Start: 12-15-2022 End: 12-15-2022 Patient encounter procedure No Primary Care Physician [facility] Start: 12-12-2022 Non-patient / Non-visit No Zahra stephenson Care Physician [facility] Start: 11-28-2022 End: 11-28-2022 ambulatory No Primary Care Physician [facility] Work Phone: Start: 11-28-2022 End: 11-28-2022 Patient encounter procedure No Primary Care Physician [facility]-Laboratory Start: 11-26-2022 Non-patient / Non-visit No Zahra stephenson Care Physician [facility] Start: 11-18-2022 Non-patient / Non-visit No Zahra stephenson [facility] Physician [facility] Start: 11-18-2022 End: 11-18-2022 ambulatory No Primary Care Physician [facility] Work Phone: Start: 11-18-2022 End: 11-18-2022 Patient encounter procedure No Primary Care Physician [facility]-Cardiovascular Services Start: 11-05-2022 End: 11-05-2022 Patient encounter procedure No Primary Care Physician [facility] Start: 10-16-2022 Non-patient / Non-visit No Zahra stephenson [place] [facility] Physician [facility] Procedures Date Procedure Procedure Detail Performing Clinician Start: 11-19-2024 Radiologic examinati on knee 3 views Blaine Drake APRN.RABBIT DRESSER Work Phone: Start: 10-15-2024 INFLUENZA A&B MOLECU LAR (POC) Emily Dunne APRN.RABBIT DRESSER Work Phone: Start: 02-10-2023 Colonoscopy No Primary Care Physician Start: 12-15-2022 CT angiography of co ronary arteries No Primary Care Physician Start: 09-11-2020 Lipid 1996 panel - S marychuy or Plasma Blaine Drake APRN.RABBIT DRESSER Work Phone: Plan of Treatment Date Care Activity Detail Author Start: 09-11-2025 Lipid panel [facility] Screening [facility] Start: 12-01-2024 [facility] Start: 11-29-2024 [facility] Start: 11-25-2024 End: 11-25-2024 Patient encounter procedure 11/25/2024 11:30 AM EDT Office Visit [facility] [place] [address] [place] [address] Prasanna Driscoll V, DO [address] [place] [address] Acute pain of right knee [M25.561] [facility] [place] Comment on above: Acute pain of right knee [M25.561] Start: 05-08-2024 Covid-19 Vaccine ( season) Covid-19 Vaccine () [facility] Start: 05-08-2024 Covid-19 Vaccine () Covid-19 Vaccine () [facility] Start: 05-08-2024 Influenza vaccination Influenza Vacc ine (#1) [facility] Start: 02-10-2023 Patient discharge [facility] Start: 10-27-2021 Diabetes Screening Diabetes Screenin g [facility] Start: 2021 Screening for malign ant neoplasm of colon [facility] Start: 11-03-2018 Urine microalbumin profile DTaP,Tdap,Td Vaccine (2 - Td or Tdap) [facility] Start: 10-31-2000 Hepatitis B Vaccine (3 of 3 - 19+ 3-dose series) Hepatitis B Vaccine (3 of 3 - 19+ 3-dose series) [facility] Start: 1994 Anxiety Screening Anxiety Screening [facility] Start: 1994 Depression Screening Depression Scre [facility] Start: 1994 Hepatitis C screening Hepatitis C Sc reening [facility] Start: 1994 HIV screening HIV Screening [facility] Colonoscopy [facility] CT angiography of coronary arteries [facility] Patient Education [facility] Work Phone: Patient referral [facility] Work Phone: Immunizations Immunization Date Immunization Notes Care Provider Fa cility 08-07-2020 influenza, injectabl e, quadrivalent, contains preservative Blaine Drake APRN.CNP Work Phone: [facility] 08-07-2020 influenza virus vacc ine, unspecified formulation Blaine Drake APRN.CNP Work Phone: [facility] 11-03-2008 tetanus toxoid, redu claire diphtheria toxoid, and acellular pertussis vaccine, adsorbed Blaine Drake FRETTED INSTRUMENT INSPECTOR.RABBIT DRESSER Work Phone: [facility] 07-31-2000 hepatitis B vaccine, adult dosage Blaine Drake APRN.RABBIT DRESSER Work Phone: [facility] 04-30-2000 hepatitis B vaccine, adult dosage Blaine Drake FRETTED INSTRUMENT INSPECTOR.RABBIT DRESSER Work Phone: [facility] 04-30-2000 poliovirus vaccine, inactivated Blaine Drake FRETTED INSTRUMENT INSPECTOR.RABBIT DRESSER Work Phone: [facility] Payers Date Payer Category Payer Unknown [id number] 2024 Self-pay 2022 Blue [employer] Blue [facility] [id number] 2022 Unknown [facility] PPO [id number] 2022-Present [phone] [id number] 2022 Unknown [id number] Private Health Insurance [facility] [id number] Unknown [facility] PACKAGE PLAN 0 [id number] Unknown [id number] Unknown [id number] Unknown [id number] Unknown [id number] Unknown [id number] Unknown [id number] Unknown [id number] Social History Date Type Detail Facility Start: 11-05-2022 End: 02-05-2023 Tobacco smoking status WAIS Unknown if ever smoked [facility] Start: 1975 Sex Assigned At Male W [facility] Start: 05-26-2024 End: 12-01-2024 Tobacco smoking status NHIS Never smoked tobacco [facility] Start: 05-26-2024 Tobacco use and exposure Smokeless tobacco non-user [facility] Start: 05-26-2024 End: 10-15-2024 Alcoholic beverage intake Current drinker of alcohol (finding) [facility] Start: 08-15-2020 End: 05-26-2024 Alcoholic beverage intake [facility] Start: 08-15-2020 End: 05-26-2024 Tobacco use panel [facility] Adult Depression Screening Assessment 0 [facility] Start: 1975 Sex assigned at Not on file [facility] Start: 11-29-2024 End: 12-01-2024 Sex Male (finding) [facility] Goals Date Patient Goal Desired Activity /State Mental Status Date Assessment Result Facility 02-10-2023 Cognitive function Voice/Name [facility] Work Phone: Clinical Notes 02-10-2023 to 12-16-2024 Note Date & Type Note Facility 12-16-2024 Evaluation note Diagnosis Onset Date Resolution Deep vein thrombosis (DVT) noneactive December 16, 2024 8:27am [facility] Work Phone: [phone] 456-953603-27-2025 Discharge summary [facility] Medical Records Department [address] [place] [address] Emergency Department Summary 12/01/24 MR#: [id number] Acct: [id number] Name: ASHLYN LEE Rep #:[id number] : 1975 49 From: Erwin Meredith MD PCP: Care Physician,No Primary Status :REG ER Location: ED HPI History of Present Illness HPI Narrative: 49-year-old male recently diagnosed with a right calf DVT has been on Eliquis 2 to 3 days. He is also now developed a right knee effusion. Did previously a few weeks ago have a knee injury while playing sports. Has an upcoming MRI to see if there is any structural damage to his knee. Denies any fever or redness. Chief Complaint: Lower Extremity Injury Informant: patient and spouse/S.O. Occured/Mechanism Mechanism/Context: Yes injury Onset/Context/Timing Onset: Weeks Context: Gradual Onset Timing: Continuous Current Severity: Mild Maximum Severity: Mild Associated Symptoms Associated Symptoms: Negative for Parasthesia, Weakness or Loss of Funtion Narrative Narrative: 49-year-old male known right calf DVT recently started on Eliquis. Saw orthopedics. Has a scheduledMRI for his right knee to see if there is any structural damage. Over the last several days he has developed an effusion. Denies any bruising. No epistaxis. No blood in his urine. No blood in his stool. No bruising to his leg. No fever or redness. Prior similar symptoms: No Recent Illness/Hospitalization: No PFSH PFSH Medical History Wears glasses Alcohol use Heartburn Non-smoker History of echocardiogram History of stress test Cardiology follow-up encounter Hypertriglyceridemia Palpitations Fatigue Myalgia Chest pain Light headed Home Medications ?Medication ?Instructions ?Recorded ?Last Taken ?Type apixaban 5 mg (74 tabs) tablets in See Rx Instructions PO .COMPLEX 11/29/24 Unknown Rx a dose pack (Eliquis DVT-PE Treat #74 tabs 30D Start) Allergy/AdvReac Type Severity Reaction Status Date / Time No Known Allergies Allergy Verified 12/01/24 15:06 Family History Father CAD (coronary artery disease) Hyperlipidemia Grandfather Myocardial infarction Grandmother Myocardial infarction Surgical History History of hydrocelectomy Hx of vasectomy Social History household members: family housing: house Smoking Status: Never smoker alcohol intake: current alcohol intake frequency: a few times a week Alcohol type: wine substance use type: does not use caffeine: Yes Type: coffee and tea ROS ROS ED ROS Narrative Denies recent illness. Constitutional Constitutional ED: Denies chills or fever(s) Eyes Eyes: Denies blurry vision ENT ENT ED: Denies ear pain Cardiovascular Cardiovascular: Denies chest pain Respiratory/Chest Respiratory/Chest: Denies cough or dyspnea Gastrointestinal Gastrointestinal: Denies abdominal pain Genitourinary Genitourinary ED: Denies dysuria or hematuria Musculoskeletal Musculoskeletal: Denies arthralgias or back pain Integumentary Denies abscess or Abrasions Neurologic Neurologic: Denies headache(s) Psychiatric Psychiatric: Denies anxiety Endocrine Endocrinology: Denies polydipsia Hematologic/Lymphatic Hematologic/Lymphatic: Reports lymphadenopathy; Denies easy bleeding Allergic/Immunologic Allergic/Immunologic ED: Denies mouth swelling, tongue swelling or urticaria EXAM Physical Exam Narrative Exam Narrative: Well-appearing 49-year-old male. Vital signs are stable afebrile. Pulse ox 100% on room air no hypoxia. No distress. H EENT exam pupils round react light. Moist mucous membranes. Lungs clear to auscultation bilaterally. Heartregular rhythm no murmur. Chest wall ribs nontender. Abdomen soft nontender. Moving all 4 extremities. He has an obvious effusion to his right knee mild swelling to his rightcalf. He has a known right calf DVT. He has a small to moderate effusion to the right knee. He is able to flex send his right knee with some discomfort. There is no cellulitis. No signs of a septic joint. Right hip is nontender. He has normal dorsi plantarflexion of his right ankle. Normal strength. Normal sensation. Normal DP pulse. Left lower extremity is nontender and unremarkable. Normal exam. Patient is awake and alert. The right knee structurally his ACL and PCL appear to be intact as does his MCL and LCL. Quadriceps patellar tendons intact. He can extend the knee to 180 degrees. He is able do flexion with mild discomfort. Const Vital Signs: 12/01/24 15:04 Temperature 97.1 F L Temperature Source Temporal Pulse Rate 58 L Respiratory Rate 13 Blood Pressure 123/86 H Blood Pressure Mean 98 Pulse Ox 100 Oxygen Delivery Method Room Air Positive well nourished and well developed; Negative for obese, cachectic, contractures or unkempt General Appearance ED: well developed and NAD; Negative for unkempt, cachectic or contractures Nutritional Appearance: Negative for cachectic or obese HEENT Reports moist mucous membranes normocephalic and atraumatic; Negative for trauma or tenderness Eyes PERRL General Eye ED: Negative for other Neck full ROM and supple Chest Wall inspection of chest normal and palpation of chest normal Resp normal respiratory effort, no retractions and clear to auscultation bilaterally Auscultation: Negative for rales, rhonchi, wheezes or diminished lung sounds Cardio regular rate, regular rhythm, S1 normal heart sound, S2 normal heart sound and no murmurs GI non-tender, non-distended and no masses Auscultation: normoactive bowel sounds Palpation: soft; Negative for tender, guarding or rebound tenderness present Back/Spine no CVA tenderness General Back: Negative for CVA tenderness Cervical Spine: Negative for cervical spine tenderness Thoracic Spine / Upper Back: Negative for thoracic spinal tenderness Extremity normal to inspection and full ROM Extremity Narrative: Except right knee. Small to moderate effusion. Able to do flexion and extension. Can extend 180 degrees. Can lift his leg off the bed. ACL and PCL are intact. MCL and LCL are intact. Quadriceps patellar tendons intact. No cellulitis. No septic knee joint. Dorsi plantarflexion intact. Palpable DP pulse. General Extremety ED: Yes edema; Negative for cyanosis General Extremity: edema; Negative for cyanosis Neuro oriented x3, CN's II-XII intact bilaterally, moves all extremities and no sensory deficits noted Sensorium / Orientation: alert, oriented to person, oriented to place and oriented to time; Negative for orientation impaired, confused, lethargic or stuporous Motor Exam: strength 5/5 throughout Psych mental status grossly normal Appearance: Negative for unkempt Speech: No other Skin no wounds Lesions: no lesions Rashes: no rashes MDM MDM MDM Narrative Medical decision making narrative: 49-year-old male known right calf DVT on Eliquis now also has a right knee effusion. May have had arecent injury. Has an upcoming MRI in 1 to 2 weeks. He does not need x-rays he just had those done at the physician's office. He just had the ultrasound showing a DVT. There is no signs of a septic joint or this being infectious. I do not think draining his knee would be of benefit 1 it would increase his risk of infection to it may reaccumulate. He will be discharged home. Ice and elevate. Tylenol for pain. Continue his Eliquis. Hehas a follow-up appointment with vascular surgery for further evaluation. Discharge Plan Triage Chief Complaint: Lower Extremity Injury ED Provider: Erwin Meredith Dx/Rx/DC Orders Clinical Impression: Acute deep vein thrombosis (DVT) of right lower extremity, Effusion of right knee joint Instructions: DVT Dc, ED Knee Effusion Prescriptions: No Action Eliquis DVT-PE Treat 30D Start 5 mg (74 tabs) tablets,dose pack See Rx Instructions .ROUTE .COMPLEX Qty: 74 0RF Rx Instructions: orally per package directions Primary Care Provider: Care Physician,No Primary Referrals: tier [Other] Stevo Duarte MD [Med Staff - Active Staff] - Keep Sheyla appointment Care Physician,No Primary [Primary Care Provider] - Activity Restrictions/Additional Instructions: You have a blood clot in your right calf. You have an effusion or fluid in yourright knee. The fluid in your knee could be from the clot or from a knee injurylike a meniscal tear or from the blood thinner and be a hemarthrosis or blood. Ice and elevate your leg to decrease the swelling. Continue your Eliquis. Follow-up with the vascular surgeon and also your MRI through [place] [facility]. Tylenol for pain. Print Language: Vincentian Disposition Disposition: Home, Self Care What to do if you have Problems For any increased pain, shortness of breath, bleeding, nausea or vomiting, chestpain, or any unexpected problems, contact your Primary Care Provider. Call [facility] [employer] ([phone]) or report tothe closest Emergency Room. Call 911 if necessary. 12/01/24 1702 Cosigner Signature (if applicable): CC: No Primary Care Physician ~ Signed [facility]03-27-2025 Discharge summary Author Erwin Meredith [facility] Note Date/Time December 01, 2024 5:0 2pm [facility] Medical Records Department [address] [place] [address] Emergency Department Summary 12/01/24 MR#: [id number] Acct: [id number] Name: ASHLYN LEE Rep #:[id number] : 1975 49 From: Erwin Meredith MD PCP: Care Physician,No Primary Status :REG ER Location: ED HPI History of Present Illness HPI Narrative: 49-year-old male recently diagnosed with a right calf DVT has been on Eliquis 2 to 3 days. He is also now developed a right knee effusion. Did previously a few weeks ago have a knee injury while playing sports. Has an upcoming MRI to see if there is any structural damage to his knee. Denies any fever or redness. Chief Complaint: Lower Extremity Injury Informant: patient and spouse/S.O. Occured/Mechanism Mechanism/Context: Yes injury Onset/Context/Timing Onset: Weeks Context: Gradual Onset Timing: Continuous Current Severity: Mild Maximum Severity: Mild Associated Symptoms Associated Symptoms: Negative for Parasthesia, Weakness or Loss of Funtion Narrative Narrative: 49-year-old male known right calf DVT recently started on Eliquis. Saw orthopedics. Has a scheduled MRI for his right knee to see if there is any structural damage. Over the last several days he has developed an effusion. Denies any bruising. No epistaxis. No blood in his urine. No blood in his stool. No bruising to his leg. No fever or redness. Prior similar symptoms: No Recent Illness/Hospitalization: No PFSH PFSH Medical History Wears glasses Alcohol use Heartburn Non-smoker History of echocardiogram History of stress test Cardiology follow-up encounter Hypertriglyceridemia Palpitations Fatigue Myalgia Chest pain Light headed Home Medications ?Medication ?Instructions ?Recorded ?Last Taken ?Type apixaban 5 mg (74 tabs) tablets in See Rx Instructions PO .COMPLEX 11/29/24 Unknown Rx a dose pack (Eliquis DVT-PE Treat #74 tabs 30D Start) Allergy/AdvReac Type Severity Reaction Status Date / Time No Known Allergies Allergy Verified 12/01/24 15:06 Family History Father CAD (coronary artery disease) Hyperlipidemia Grandfather Myocardial infarction Grandmother Myocardial infarction Surgical History History of hydrocelectomy Hx of vasectomy Social History household members: family housing: house Smoking Status: Never smoker alcohol intake: current alcohol intake frequency: a few times a week Alcohol type: wine substance use type: does not use caffeine: Yes Type: coffee and tea ROS ROS ED ROS Narrative Denies recent illness. Constitutional Constitutional ED: Denies chills or fever(s) Eyes Eyes: Denies blurry vision ENT ENT ED: Denies ear pain Cardiovascular Cardiovascular: Denies chest pain Respiratory/Chest Respiratory/Chest: Denies cough or dyspnea Gastrointestinal Gastrointestinal: Denies abdominal pain Genitourinary Genitourinary ED: Denies dysuria or hematuria Musculoskeletal Musculoskeletal: Denies arthralgias or back pain Integumentary Denies abscess or Abrasions Neurologic Neurologic: Denies headache(s) Psychiatric Psychiatric: Denies anxiety Endocrine Endocrinology: Denies polydipsia Hematologic/Lymphatic Hematologic/Lymphatic: Reports lymphadenopathy; Denies easy bleeding Allergic/Immunologic Allergic/Immunologic ED: Denies mouth swelling, tongue swelling or urticaria EXAM Physical Exam Narrative Exam Narrative: Well-appearing 49-year-old male. Vital signs are stable afebrile. Pulse ox 100% on room air no hypoxia. No distress. H EENT exam pupils round react light. Moist mucous membranes. Lungs clear to auscultation bilaterally. Heartregular rhythm no murmur. Chest wall ribs nontender. Abdomen soft nontender. Moving all 4 extremities. He has an obvious effusion to his right knee mild swelling to his right calf. He has a known right calf DVT. He has a small to moderate effusion to the right knee. He is able to flex send his right knee with some discomfort. There is no cellulitis. No signs of a septic joint. Right hip is nontender. He has normal dorsi plantarflexion of his right ankle. Normal strength. Normal sensation. Normal DP pulse. Left lower extremity is nontender and unremarkable. Normal exam. Patient is awake and alert. The right knee structurally his ACL and PCL appear to be intact as does his MCL and LCL. Quadriceps patellar tendons intact. He can extend the knee to 180 degrees. He is able do flexion with mild discomfort. Const Vital Signs: 12/01/24 15:04 Temperature 97.1 F L Temperature Source Temporal Pulse Rate 58 L Respiratory Rate 13 Blood Pressure 123/86 H Blood Pressure Mean 98 Pulse Ox 100 Oxygen Delivery Method Room Air Positive well nourished and well developed; Negative for obese, cachectic, contractures or unkempt General Appearance ED: well developed and NAD; Negative for unkempt, cachectic or contractures Nutritional Appearance: Negative for cachectic or obese HEENT Reports moist mucous membranes normocephalic and atraumatic; Negative for trauma or tenderness Eyes PERRL General Eye ED: Negative for other Neck full ROM and supple Chest Wall inspection of chest normal and palpation of chest normal Resp normal respiratory effort, no retractions and clear to auscultation bilaterally Auscultation: Negative for rales, rhonchi, wheezes or diminished lung sounds Cardio regular rate, regular rhythm, S1 normal heart sound, S2 normal heart sound and no murmurs GI non-tender, non-distended and no masses Auscultation: normoactive bowel sounds Palpation: soft; Negative for tender, guarding or rebound tenderness present Back/Spine no CVA tenderness General Back: Negative for CVA tenderness Cervical Spine: Negative for cervical spine tenderness Thoracic Spine / Upper Back: Negative for thoracic spinal tenderness Extremity normal to inspection and full ROM Extremity Narrative: Except right knee. Small to moderate effusion. Able to do flexion and extension. Can extend 180 degrees. Can lift his leg off the bed. ACL and PCL are intact. MCL and LCL are intact. Quadriceps patellar tendons intact. No cellulitis. No septic knee joint. Dorsi plantarflexion intact. Palpable DP pulse. General Extremety ED: Yes edema; Negative for cyanosis General Extremity: edema; Negative for cyanosis Neuro oriented x3, CN's II-XII intact bilaterally, moves all extremities and no sensory deficits noted Sensorium / Orientation: alert, oriented to person, oriented to place and oriented to time; Negative for orientation impaired, confused, lethargic or stuporous Motor Exam: strength 5/5 throughout Psych mental status grossly normal Appearance: Negative for unkempt Speech: No other Skin no wounds Lesions: no lesions Rashes: no rashes MDM MDM MDM Narrative Medical decision making narrative: 49-year-old male known right calf DVT on Eliquis now also has a right knee effusion. May have had a recent injury. Has an upcoming MRI in 1 to 2 weeks. He does not need x-rays he just had those done at the physician's office. He just had the ultrasound showing a DVT. There is no signs of a septic joint or this being infectious. I do not think draining his knee would be of benefit 1 it would increase his risk of infection to it may reaccumulate. He will be discharged home. Ice and elevate. Tylenol for pain. Continue his Eliquis. Hehas a follow-up appointment with vascular surgery for further evaluation. Discharge Plan Triage Chief Complaint: Lower Extremity Injury ED Provider: Erwin Meredith Dx/Rx/DC Orders Clinical Impression: Acute deep vein thrombosis (DVT) of right lower extremity, Effusion of right knee joint Instructions: DVT Dc, ED Knee Effusion Prescriptions: No Action Eliquis DVT-PE Treat 30D Start 5 mg (74 tabs) tablets,dose pack See Rx Instructions .ROUTE .COMPLEX Qty: 74 0RF Rx Instructions: orally per package directions Primary Care Provider: Care Physician,No Primary Referrals: tier [Other] Stevo Duarte MD [Med Staff - Active Staff] - Keep Sheyla appointment Care Physician,No Primary [Primary Care Provider] - Activity Restrictions/Additional Instructions: You have a blood clot in your right calf. You have an effusion or fluid in yourright knee. The fluid in your knee could be from the clot or from a knee injurylike a meniscal tear or from the blood thinner and be a hemarthrosis or blood. Ice and elevate your leg to decrease the swelling. Continue your Eliquis. Follow-up with the vascular surgeon and also your MRI through [facility]. Tylenol for pain. Print Language: Vincentian Disposition Disposition: Home, Self Care What to do if you have Problems For any increased pain, shortness of breath, bleeding, nausea or vomiting, chestpain, or any unexpected problems, contact your Primary Care Provider. Call [facility] ([phone]) or report to the closest Emergency Room. Call 911 if necessary. 12/01/24 3962 <Electronically signed by Erwin Meredith MD> Cosigner Signature (if applicable): CC: No Primary Care Physician ~ Signed [facility] Work Phone: 1(669) 787-158203-25-2025 Discharge summary [facility] Medical Records Department [address] [place] [address] Emergency Department Summary 11/29/24 MR#: [id number] Acct: [id number] Name: ASHLYN LEE Rep #:[id number] : 1975 49 From: Rl Buenrostro DO PCP: Care Physician,No Primary Status :REG ER Location: ED HPI History of Present Illness Chief Complaint: Lower Extremity Injury Narrative Narrative: Patient is a 49-year-old male with no known significant past medical history whopresented to the emergency department from the orthopedic office with a chief complaint of right calf pain. Patient states that he recently took a trip to [facility] and notes that he has some pain in his catheter been worsening. He statesthat the injury to his knee was right before the trip and that is why he was following up with them in the outpatient setting. He states that they scheduled anMRI for his right knee butwere concerned that he may have a blood clot in his leg therefore they sent him here for the valuation management. Patient denies any history of blood clots. [facility] Medical History Wears glasses Alcohol use Heartburn Non-smoker History of echocardiogram History of stress test Cardiology follow-up encounter Hypertriglyceridemia Palpitations Fatigue Myalgia Chest pain Light headed Home Medications ?Medication ?Instructions ?Recorded ?Last Taken ?Type NK 10/16/22 Unknown History Allergy/AdvReac Type Severity Reaction Status Date / Time No Known Allergies Allergy Verified 11/29/24 16:13 Family History Father CAD (coronary artery disease) Hyperlipidemia Grandfather Myocardial infarction Grandmother Myocardial infarction Surgical History History of hydrocelectomy Hx of vasectomy Social History Smoking Status: Never smoker alcohol intake: current alcohol intake frequency: a few times a week Alcohol type: wine substance use type: does not use caffeine: Yes Type: coffee and tea ROS ROS ED ROS Narrative Constitutional: Denies fevers, chills, headaches Cardiovascular: Denies chest pain Respiratory: Denies shortness of breath Neurological: Denies numbness, weakness, tingling Musculoskeletal: Complains of right knee pain as noted above as well as calf pain Skin: Denies rashes or lesions EXAM Physical Exam Narrative Exam Narrative: General: Patient was lying in bed rest comfortably did not appear to be in acutedistress Head: Atraumatic, normocephalic Eyes: PERRL bilaterally, EOMI bilateral, no conjunctival injection noted Neck: Soft, supple, trachea midline Cardiovascular: Regular rate and rhythm no murmurs gallops rubs noted Respiratory: Clear to auscultation bilaterally Abdomen: Soft, nondistended, nontender to palpation Musculoskeletal: Patient has some mild tenderness to palpation in his posterior calf on the right side, compartments are soft and compressible Extremities: DP pulses +2/4 in the bilateral lower extremities is 5/5 strength noted in the bilateral upper and lower extremities Neurological: Patient following commands knew that he was at [facility] year is 2024 Skin: Warm, dry, intact no rashes or lesions noted Const Vital Signs: 11/29/24 16:11 Temperature 98.2 F Temperature Source Oral Pulse Rate 65 Respiratory Rate 18 Blood Pressure 110/94 H Blood Pressure Mean 99 Pulse Ox 100 Oxygen Delivery Method Room Air MDM MDM MDM Narrative Medical decision making narrative: Patient is a 49-year-old male who presented to the emergency department the chief complaint of concern for a blood clot in his right calf after a recent trip to [facility]. On the differential diagnose includes but not limited to musculoskeletal strain, DVT, superficial venous thrombosis. Once workup is obtained reviewed he will be reevaluated. Patient's venous Doppler was positive for a DVT he will be started on Eliquis. He will be given follow-up with vascular surgery Dr. Duarte. He was advised to avoid high risk activities and if he falls in its his head he needs to be evaluated immediately as there is a chance that he has a head bleed. He verbalized understanding of this as well as his family member at bedside. They are agreeable this plan all question concerns answered he is discharged home in stable condition. Discharge Plan Triage Chief Complaint: Lower Extremity Injury ED Provider: Rl Buenrosrto Dx/Rx/DC Orders Clinical Impression: Acute deep vein thrombosis (DVT) of right lower extremity Instructions: DVT Complications Prescriptions: No Action NK Primary Care Provider: Care Physician,No Primary Referrals: Care Physician,No Primary [Primary Care Provider] - Vivien Ross MD [Med Staff - Senior Principal] - Stevo Duarte MD [Med Staff - Active Staff] - Activity Restrictions/Additional Instructions: Follow-up with the vascular surgeon you referred to. Take Eliquis as prescribed. Return with worsening symptoms or concerns. If you fall and hit your head you need to be evaluated immediately in the emergency department as her chance that you will have a head bleed while on the blood thinning medication from the head trauma. You are also referred to a primary care physician if you not have 1. He should follow-up with them as well. Print Language: Vincentian Disposition Disposition: Home, Self Care What to do if you have Problems For any increased pain, shortness of breath, bleeding, nausea or vomiting, chestpain, or any unexpected problems, contact your Primary Care Provider. Call [facility] ([phone]) or report tothe closest Emergency Room. Call 911 if necessary. 11/29/24 1656 Cosigner Signature (if applicable): CC: No Primary Care Physician ~ Signed [facility]03-25-2025 Discharge summary Author Rl Buenrostro [facility] Note Date/Time November 29, 2024 4:5 4pm [facility] Medical Records Department [address] [place] [address] Emergency Department Summary 11/29/24 MR#: [id number] Acct: [id number] Name: ASHLYN LEE Rep #:[id number] : 1975 49 From: Rl Buenrostro DO PCP: Care Physician,No Primary Status :REG ER Location: ED HPI History of Present Illness Chief Complaint: Lower Extremity Injury Narrative Narrative: Patient is a 49-year-old male with no known significant past medical history whopresented to the emergency department from the orthopedic office with a chief complaint of right calf pain. Patient states that he recently took a trip to [facility] and notes that he has some pain in his catheter been worsening. He statesthat the injury to his knee was right before the trip and that is why he was following up with them in the outpatient setting. He states that they scheduled anMRI for his right knee but were concerned that he may have a blood clot in his leg therefore they sent him here for the valuation management. Patient denies any history of blood clots. [facility] Medical History Wears glasses Alcohol use Heartburn Non-smoker History of echocardiogram History of stress test Cardiology follow-up encounter Hypertriglyceridemia Palpitations Fatigue Myalgia Chest pain Light headed Home Medications ?Medication ?Instructions ?Recorded ?Last Taken ?Type NK 10/16/22 Unknown History Allergy/AdvReac Type Severity Reaction Status Date / Time No Known Allergies Allergy Verified 11/29/24 16:13 Family History Father CAD (coronary artery disease) Hyperlipidemia Grandfather Myocardial infarction Grandmother Myocardial infarction Surgical History History of hydrocelectomy Hx of vasectomy Social History Smoking Status: Never smoker alcohol intake: current alcohol intake frequency: a few times a week Alcohol type: wine substance use type: does not use caffeine: Yes Type: coffee and tea ROS ROS ED ROS Narrative Constitutional: Denies fevers, chills, headaches Cardiovascular: Denies chest pain Respiratory: Denies shortness of breath Neurological: Denies numbness, weakness, tingling Musculoskeletal: Complains of right knee pain as noted above as well as calf pain Skin: Denies rashes or lesions EXAM Physical Exam Narrative Exam Narrative: General: Patient was lying in bed rest comfortably did not appear to be in acutedistress Head: Atraumatic, normocephalic Eyes: PERRL bilaterally, EOMI bilateral, no conjunctival injection noted Neck: Soft, supple, trachea midline Cardiovascular: Regular rate and rhythm no murmurs gallops rubs noted Respiratory: Clear to auscultation bilaterally Abdomen: Soft, nondistended, nontender to palpation Musculoskeletal: Patient has some mild tenderness to palpation in his posterior calf on the right side, compartments are soft and compressible Extremities: DP pulses +2/4 in the bilateral lower extremities is 5/5 strength noted in the bilateral upper and lower extremities Neurological: Patient following commands knew that he was at [facility] year is 2024 Skin: Warm, dry, intact no rashes or lesions noted Const Vital Signs: 11/29/24 16:11 Temperature 98.2 F Temperature Source Oral Pulse Rate 65 Respiratory Rate 18 Blood Pressure 110/94 H Blood Pressure Mean 99 Pulse Ox 100 Oxygen Delivery Method Room Air MDM MDM MDM Narrative Medical decision making narrative: Patient is a 49-year-old male who presented to the emergency department the chief complaint of concern for a blood clot in his right calf after a recent trip to [facility]. On the differential diagnose includes but not limited to musculoskeletal strain, DVT, superficial venous thrombosis. Once workup is obtained reviewed he will be reevaluated. Patient's venous Doppler was positive for a DVT he will be started on Eliquis. He will be given follow-up with vascular surgery Dr. Duarte. He was advised to avoid high risk activities and if he falls in its his head he needs to be evaluated immediately as there is a chance that he has a head bleed. He verbalized understanding of this as well as his family member at bedside. They are agreeable this plan all question concerns answered he is discharged home in stable condition. Discharge Plan Triage Chief Complaint: Lower Extremity Injury ED Provider: Rl Buenrostro Dx/Rx/DC Orders Clinical Impression: Acute deep vein thrombosis (DVT) of right lower extremity Instructions: DVT Complications Prescriptions: No Action NK Primary Care Provider: Care Physician,Jessica Primary Referrals: Care Physician,No Primary [Primary Care Provider] - Vivien Ross MD [Med Staff - Senior Principal] - Stevo Duarte MD [Med Staff - Active Staff] - Activity Restrictions/Additional Instructions: Follow-up with the vascular surgeon you referred to. Take Eliquis as prescribed. Return with worsening symptoms or concerns. If you fall and hit your head you need to be evaluated immediately in the emergency department as her chance that you will have a head bleed while on the blood thinning medication from the head trauma. You are also referred to a primary care physician if you not have 1. He should follow-up with them as well. Print Language: Vincentian Disposition Disposition: Home, Self Care What to do if you have Problems For any increased pain, shortness of breath, bleeding, nausea or vomiting, chestpain, or any unexpected problems, contact your Primary Care Provider. Call [email or web address] ([phone]) or report to the closest Emergency Room. Call 911 if necessary. 11/29/24 1654 <Electronically signed by Rl Buenrostro DO> Cosigner Signature (if applicable): CC: No Primary Care Physician ~ Signed [facility] Work Phone: [phone]) 217-301603-25-2025 Telephone encounter Note* Telephone Encounter - Geri Scott PSS - 11/29/2024 1:23 PM EDT CD READY FOR UNDERWRITING ANALYST AT [facility] [place] [place] [facility]03-25-2025 Miscellaneous Notes* Telephone Encounter - Geri Scott PSS - 11/29/2024 1:23 PM EDT CD READY FOR UNDERWRITING ANALYST AT [facility] [place] [facility] * Telephone Encounter - Clari Estevez - 11/29/2024 12:15 PM EDT Patient would like to hot die picker CD of x-ray done on 11/19/24. documented [facility] Telephone encounter Note * Telephone Encounter - Clari Estevez - 11/29/2024 12:15 PM EDT Patient would like to hot die picker CD of x-ray done on 11/19/24. [facility]03-15-2025 NoteHNO ID: [id number] Author: BLAINE DRAKE APRN.[employer] Service: ? Author Type: Nurse Practitioner Type: Progress Notes Filed: 11/19/2024 13:37 Note Text: [facility] Subjective Bertrand Lee is a 49 year old male. HPI Bertrand Lee is a 49 year old male who presents today for CC of sudden onset left knee pain. This started 2 hours ago. Has tried rest/crutches for relief. Symptoms are worsened by standing/rom. Risk factors hx of multiple right knee injury in past. .Patient presents with: Knee Pain: right x 2 hours, denies injury PAST MEDICAL HISTORY Diagnosis Date Undiagnosed cardiac murmurs 2000 PAST SURGICAL HISTORY Procedure Laterality Date VASECTOMY UNI/BI SPX W/POSTOP SEMEN EXAMS 2014 also had f/u vasectomy surgery a few months later ALLERGIES Patient has no known allergies. MEDICATIONS No prescriptions on file. FAMILY HISTORY Problem Relation Age of Onset None Mother Heart Father CAD, CABG 51 Hyperlipidemia Father Heart Paternal Grandmother Heart Paternal Grandfather No Known Problems Sister No Known Problems Brother No Known Problems Brother No Known Problems Brother No Known Problems Daughter No Known Problems Son Social History Tobacco Use Smoking status: Never Smokeless tobacco: Never Substance Use Topics Alcohol use: Yes Alcohol/week: 2.0 standard drinks of alcohol Types: 2 Glasses of Wine (5oz) per week Drug use: No Patient presents with: Knee Pain: right x 2 hours, denies injury HPI Review of Systems Objective BP 122/68 Pulse 70 Temp 36.8 ?C (98.2 ?F) Resp 16 Wt 70.3 kg (155 lb) SpO2 98% BMI 23.92 kg/m? Physical Exam Constitutional: General: He is not in acute distress. Appearance: He is not toxic-appearing or diaphoretic. HENT: Head: Normocephalic and atraumatic. Pulmonary: Effort: Pulmonary effort is normal. No accessory muscle usage or respiratory distress. Musculoskeletal: Right knee: No LCL laxity or MCL laxity. Left knee: No LCL laxity or MCL laxity. Legs: Neurological: Mental Status: He is alert and oriented to person, place, and time. ASSESSMENT/PLAN: 1. Acute pain of right knee - ICD9: 719.46, ICD10: M25.561 Xray as below Will refer to ortho d/t severity of pain with rom and no known injury. Otc management advised. - XR KNEE POST OP 3V AP/LAT/MERCHANT RIGHT IMPRESSION: Mild degenerative changes in the right knee. Dictated by : KARON MA MD - CONSULT TO ORTHOPAEDICS Blaine Drake APRN.RABBIT DRESSER [facility] History of Present illness Narrative* Blaine Drake APRN.[facility] - 11/19/2024 12:23 PM EDT Images from the original note were not included. [facility] Subjective Bertrand Lee is a 49 year old male. HPI Bertrand Lee is a 49 year old male who presents today for CC of sudden onset left knee pain. This started 2 hours ago. Has tried rest/crutches for relief. Symptoms are worsened by standing/rom.Risk factors hx of multiple right knee injury in past. .Patient presents with: Knee Pain: right x 2 hours, denies injury PAST MEDICAL HISTORY Diagnosis Date Undiagnosed cardiac murmurs 2000 PAST SURGICAL HISTORY Procedure Laterality Date VASECTOMY UNI/BI SPX W/POSTOP SEMEN EXAMS 2013 also had f/u vasectomy surgery a few months later ALLERGIES Patient has no known allergies. MEDICATIONS No prescriptions on file. FAMILY HISTORY Problem Relation Age of Onset None Mother Heart Father CAD, CABG 51 Hyperlipidemia Father Heart Paternal Grandmother Heart Paternal Grandfather No Known Problems Sister No Known Problems Brother No Known Problems Brother No Known Problems Brother No Known Problems Daughter No Known Problems Son Social History Tobacco Use Smoking status: Never Smokeless tobacco: Never Substance Use Topics Alcohol use: Yes Alcohol/week: 2.0 standard drinks of alcohol Types: 2 Glasses of Wine (5oz) per week Drug use: No Patient presents with: Knee Pain: right x 2 hours, denies injury HPI Review of Systems Objective BP 122/68 Pulse 70 Temp 36.8 C (98.2 F) Resp 16 Wt 70.3 kg (155 lb) SpO2 98% BMI 23.92 kg/m Physical Exam Constitutional: General: He is not in acute distress. Appearance: He is not toxic-appearing or diaphoretic. HENT: Head: Normocephalic and atraumatic. Pulmonary: Effort: Pulmonary effort is normal. No accessory muscle usage or respiratory distress. Musculoskeletal: Right knee: No LCL laxity or MCL laxity. Left knee: No LCL laxity or MCL laxity. Legs: Neurological: Mental Status: He is alert and oriented to person, place, and time. ASSESSMENT/PLAN: 1. Acute pain of right knee - ICD9: 719.46, ICD10: M25.561 Xray as below Will refer to ortho d/t severity of pain with rom and no known injury. Otc management advised. - XR KNEE POST OP 3V AP/LAT/MERCHANT RIGHT IMPRESSION: Mild degenerative changes in the right knee. Dictated by : KARON MA MD - CONSULT TO ORTHOPAEDICS Blaine Drake APRN.[facility] Procedures documented in this encounterCleveland [facility]03-[facility] History of Present illness Narrative* Ray Riley RT(R) - 11/19/2024 11:50 AM EDT Radiology Service Progress Note PATIENT NAME: Bertrand Lee DATE OF SERVICE: November 19, 2024 TIME: 12:34 PM PATIENT IDENTITY VERIFICATION COMPLETED USING TWO (2) IDENTIFIERS: Name and Date of confirmedby patient verbally. FALL SCREENING: Has the patient had 2 falls in the last year or 1 fall with injury or currently using an Ambulatory Assistive Device (Walker, Cane, Wheelchair, Crutches, etc.)? No PATIENT GENDER DATA: Assigned male at PATIENT RELEVANT IMPLANT DATA REVIEWED: Not Applicable PATIENT PRESENTS WITH AN IMPLANTABLE OR ATTACHED BRIDGE OPERATOR: No RADIOLOGY DEPARTMENT: General X-ray: Exam(s) Completed: Lower Extremity X- Ray(s): Knee, AP / Lat / Merchant Right PERIPHERAL IV DATA: Not applicable SIGNED BY: RT Ilya(Lashaun) November 19, 2024 12:34 PM documented in this encounterCleveland Clinic [facility]03-15-2025 NoteHNO ID: [id number] Author: RAY RILEY RT(R) Service: ? Author Type: Technologist Type: Progress Notes Filed: 11/19/2024 12:35 Note Text: Radiology Service Progress Note PATIENT NAME: Bertrand Lee DATE OF SERVICE: November 19, 2024 TIME: 12:34 PM PATIENT IDENTITY VERIFICATION COMPLETED USING TWO (2) IDENTIFIERS: Name and Date of confirmed by patient verbally. FALL SCREENING: Has the patient had 2 falls in the last year or 1 fall with injury or currently using an Ambulatory Assistive Device (Walker, Cane, Wheelchair, Crutches, etc.)? No PATIENT GENDER DATA: Assigned male at PATIENT RELEVANT IMPLANT DATA REVIEWED: Not Applicable PATIENT PRESENTS WITH AN IMPLANTABLE OR ATTACHED BRIDGE OPERATOR: No RADIOLOGY DEPARTMENT: General X-ray: Exam(s) Completed: Lower Extremity X-Ray(s): Knee, AP / Lat / Merchant Right PERIPHERAL IV DATA: Not applicable SIGNED BY: RT Ilya(R) November 19, 2024 12:34 [facility]02-08-2025 NoteHNO ID: [id number] Author: EMILY DUNNE APRN.RABBIT DRESSER Service: ? Author Type: Nurse Practitioner Type: Progress Notes Filed: 10/15/2024 10:15 Note Text: This note was created using Giraffic. Subjective Bertrand Lee is a 49 year old male. Presents for fever, chills, body ache and congestion x36 hours. Patient reports he is not sure what his temperature was last night night but his told him he had a fever. Objective BP 122/94 Pulse 94 Temp 37.7 ?C (99.8 ?F) Resp 20 Wt 70 kg (154 lb 5.2 oz) SpO2 96% BMI 23.81 kg/m? Physical Exam PHYSICAL EXAMINATION: General appearance: Well appearing, alert, in no acute distress, well-hydrated, well nourished. Nose/Sinuses: Positive findings: mucosa erythematous and swollen Oropharynx: Lips, mucosa, and tongue normal, teeth and gums normal, oropharynx normal Neck: Positive findings: superficial cervical adenopathy Lungs: Lungs clear to auscultation. No wheezing, rhonchi, rales. Heart: RRR without murmur, gallop, or rubs. No ectopy Assessment and Plan ASSESSMENT/PLAN: 1. URI with cough and congestion - ICD9: 465.9, ICD10: J06.9 (primary diagnosis) - Discussed viral etiology and rationale for treatment. - Symptomatic treatment with prn analgesia - Supportive care with fluids and rest - INFLUENZA AANDB MOLECULAR (POC) 2. Fever, unspecified fever cause - ICD9: 780.60, ICD10: R50.9 - INFLUENZA AANDB MOLECULAR (POC) 3. Influenza A - ICD9: 487.1, ICD10: J10.1 - OSELTAMIVIR 75 MG CAPSULE Emily Dunne APRN.[facility]PS[facility]02-08-2025 History of Present illness Narrative* Emily Dunne APRN.CNP - 10/15/2024 10:00 AM EST This note was created using Giraffic. Subjective Bertrand Lee is a 49 year old male. Presents for fever, chills, body ache and congestion x36 hours. Patient reports he is not sure what his temperature was last night night but his told him hehad a fever. Objective BP 122/94 Pulse 94 Temp 37.7 C (99.8 F) Resp 20 Wt 70 kg (154 lb 5.2 oz) SpO2 96% BMI 23.81 kg/m Physical Exam PHYSICAL EXAMINATION: General appearance: Well appearing, alert, in no acute distress, well-hydrated, well nourished. Nose/Sinuses: Positive findings: mucosa erythematous and swollen Oropharynx: Lips, mucosa, and tongue normal, teeth and gums normal, oropharynx normal Neck: Positive findings: superficial cervical adenopathy Lungs: Lungs clear to auscultation. No wheezing, rhonchi, rales. Heart: RRR without murmur, gallop, or rubs. No ectopy Assessment and Plan ASSESSMENT/PLAN: 1. URI with cough and congestion - ICD9: 465.9, ICD10: J06.9 (primary diagnosis) - Discussed viral etiology and rationale for treatment. - Symptomatic treatment with prn analgesia - Supportive care with fluids and rest - INFLUENZA A&B MOLECULAR (POC) 2. Fever, unspecified fever cause - ICD9: 780.60, ICD10: R50.9 - INFLUENZA A&B MOLECULAR (POC) 3. Influenza A - ICD9: 487.1, ICD10: J10.1 - OSELTAMIVIR 75 MG CAPSULE Emily Dunne APRN.CNP documented in this encounterCleveland [facility]10-01-2024 Telephone encounter Note * Telephone Encounter - Rachel Golden LPN - 06/07/2024 4:16 PM EDT Pt calls to report he was seen in on 05/26/24 and referred to [facility]. Pt is requesting order be faxed to: [phone]. Order faxed as requested. Rachel Golden LPN [facility]10-01-2024 Miscellaneous Notes* Telephone Encounter - Rachel Golden LPN - 06/07/2024 4:16 PM EDT Pt calls to report he was seen in on 05/26/24 and referred to [facility]. Pt is requesting order be faxed to: [phone]. Order faxed as requested. Rachel Golden LPN documented in this encounterCleveland Clinic [facility]09-19-2024 NoteHNO ID: [id number] Author: BLAINE DRAKE APRN.RABBIT DRESSER Service: ? Author Type: Nurse Practitioner Type: Progress Notes Filed: 05/26/2024 15:09 Note Text: Subjective HPI HPI Bertrand Lee is a 49 year old male who presents today for CC of lump on right leg. This started 5 years ago/growing and now tender. Has tried nothing for relief. Symptoms are worsened by nothing. Denies injury. .Patient presents with: Lump: On RIGHT lower leg/ calf area PAST MEDICAL HISTORY Diagnosis Date Undiagnosed cardiac murmurs 2000 PAST SURGICAL HISTORY Procedure Laterality Date VASECTOMY UNI/BI SPX W/POSTOP SEMEN EXAMS 2014 also had f/u vasectomy surgery a few months later ALLERGIES Patient has no known allergies. MEDICATIONS No prescriptions on file. FAMILY HISTORY Problem Relation Age of Onset None Mother Heart Father CAD, CABG 51 Hyperlipidemia Father Heart Paternal Grandmother Heart Paternal Grandfather No Known Problems Sister No Known Problems Brother No Known Problems Brother No Known Problems Brother No Known Problems Daughter No Known Problems Son Social History Tobacco Use Smoking status: Never Smokeless tobacco: Never Substance Use Topics Alcohol use: Yes Alcohol/week: 2.0 standard drinks of alcohol Types: 2 Glasses of Wine (5oz) per week Drug use: No ROS Objective Blood pressure 124/86, pulse 64, temperature 36.8 ?C (98.2 ?F), temperature source Right Tympanic, resp. rate 16, weight 72.2 kg (159 lb 2.8 oz), SpO2 98%. Physical Exam Constitutional: General: He is not in acute distress. Appearance: He is not toxic-appearing or diaphoretic. HENT: Head: Normocephalic and atraumatic. Pulmonary: Effort: Pulmonary effort is normal. No accessory muscle usage or respiratory distress. Skin: Neurological: Mental Status: He is alert and oriented to person, place, and time. ASSESSMENT/PLAN: 1. Skin mass - ICD9: 782.2, ICD10: R22.9 Refer to dermatology Call [facility] for appointment. - CONSULT TO DERMATOLOGY Blaine Drake APRN.[facility]09-19-2024 History of Present illness Narrative* Blaine Drake APRN.[facility] - 05/26/2024 3:06 PM EDT Images from the original note were not included. Subjective HPI HPI Bertrand Lee is a 49 year old male who presents today for CC of lump on right leg. This started 5 years ago/growing and now tender. Has tried nothing for relief. Symptoms are worsened by nothing. Denies injury. .Patient presents with: Lump: On RIGHT lower leg/ calf area PAST MEDICAL HISTORY Diagnosis Date Undiagnosed cardiac murmurs 2000 PAST SURGICAL HISTORY Procedure Laterality Date VASECTOMY UNI/BI SPX W/POSTOP SEMEN EXAMS 2013 also had f/u vasectomy surgery a few months later ALLERGIES Patient has no known allergies. MEDICATIONS No prescriptions on file. FAMILY HISTORY Problem Relation Age of Onset None Mother Heart Father CAD, CABG 51 Hyperlipidemia Father Heart Paternal Grandmother Heart Paternal Grandfather No Known Problems Sister No Known Problems Brother No Known Problems Brother No Known Problems Brother No Known Problems Daughter No Known Problems Son Social History Tobacco Use Smoking status: Never Smokeless tobacco: Never Substance Use Topics Alcohol use: Yes Alcohol/week: 2.0 standard drinks of alcohol Types: 2 Glasses of Wine (5oz) per week Drug use: No ROS Objective Blood pressure 124/86, pulse 64, temperature 36.8 C (98.2 F), temperature source Right Tympanic, resp. rate 16, weight 72.2 kg (159 lb 2.8 oz), SpO2 98%. Physical Exam Constitutional: General: He is not in acute distress. Appearance: He is not toxic-appearing or diaphoretic. HENT: Head: Normocephalic and atraumatic. Pulmonary: Effort: Pulmonary effort is normal. No accessory muscle usage or respiratory distress. Skin: Neurological: Mental Status: He is alert and oriented to person, place, and time. ASSESSMENT/PLAN: 1. Skin mass - ICD9: 782.2, ICD10: R22.9 Refer to dermatology Call [facility] for appointment. - CONSULT TO DERMATOLOGY Blaine Drake APRN.RABBIT DRESSER documented in this encounterCleveland Clinic [facility]06-06-2023 Procedure noteWPrem[facility]06-06-2023 Procedure noteWPrem[facility] HospitalEvaluation note* Diagnosis Onset Date Resolution Status Chest pain acute [facility] Work Phone: Evaluation note* Diagnosis Onset Date Resolution Status Chest pain acute Encounter for screening for malignant neoplasm of colo n acute [facility] Work Phone: Evaluation note* Diagnosis Skin mass- Primary Localized superficial swelling, mass, or lump documented in this encounter [facility]* Diagnosis URI with cough and congestion- Primary Fever, unspecified fever cause Influenza A Influenza with other respiratory manifestations documented in this encounter [facility]* Diagnosis Acute pain of right knee- Primary documented in this encounter [facility] noteNo assessment information availableWPremier Health [facility] Work Phone: History and physical note Author Jus Friend [facility] February 10, 2023 1:45pm Note Date/Time February 10, 2023 1:45p [facility] Medical Records Department [address] [place] [address] History & Physical Exam 02/10/23 1344 MR#: [id number] Acct: [id number] Name: ASHLYN LEE Rep #:[id number] : 1975 47 From: Jus Friend DO PCP: Care Physician,No Primary Status :[facility] Location: [place] [address] HPI - General General Date of Admission: 02/10/23 Date of Service: 02/10/23 Chief Complaint: Screening colonoscopy HPI Narrative ASHLYN LEE, is a 47 M who presents today for screening colonoscopy. He hasnever had a colonoscopy in the past. He has occasional abdominal discomfort with some mild bloating and has some mild incomplete evacuation. He has noticedthat his stools have been a bit harder. His weight has been stable. He has notseen any blood in his stool. He has no family history of colon cancer or colon polyps. [facility] Medical History Alcohol use Cardiology follow-up encounter Chest pain Fatigue Heartburn History of echocardiogram History of stress test Hypertriglyceridemia Light headed Myalgia Non-smoker Palpitations Wears glasses Home Medications NK 10/16/22 [History Last Taken Unknown] Allergy/AdvReac Type Severity Reaction Status Date / Time No Known Allergies Allergy Unverified 02/10/23 12:58 Family History Father CAD (coronary artery disease) Hyperlipidemia Grandfather Myocardial infarction Grandmother Myocardial infarction Surgical History History of hydrocelectomy Hx of vasectomy Social History Smoking Status: Never smoker alcohol intake: current alcohol intake frequency: a few times a week Alcohol type: wine substance use type: does not use caffeine: Yes Type: coffee and tea ROS Review of Systems ROS Unobtainable: other Constitutional Constitutional: Denies fatigue, fever(s), poor appetite, weight gain or weight loss ENT HEENT: Denies mouth lesions Cardiovascular Cardiovascular: Denies abdominal bloating, abdominal edema or abdominal pain Respiratory/Chest Respiratory/Chest: Denies change in mental status, change in phlegm color, chestcongestion or chest tightness Gastrointestinal Gastrointestinal: Denies belching, bloating, change in bowel habits, change in stool character, chewing difficulty, coffee ground emesis, constipation, cramping, diarrhea, dyspepsia, dysphagia, early satiety, excessive flatus, fecalincontinence, heartburn, hematemesis, hematochezia, hemorrhoids, loose stools, melena, nausea, odynophagia, rectal bleeding, tenesmus, vomiting or weight changes Genitourinary Genitourinary: Denies abdominal discomfort, burning urination or itching Musculoskeletal Musculoskeletal: Reports as per HPI; Denies muscle weakness or myalgias Integumentary Integumentary: Denies jaundice Neurologic Neurologic: Denies lack of coordination or weakness Psychiatric Psychiatric: Denies confusion, depression, memory loss, mood swings, paranoia orsuicidal ideation Endocrine Endocrinology: Denies systems reviewed and no addt'l complaints, except as documented Hematologic/Lymphatic Hematologic/Lymphatic: Denies anemia, easy bleeding, easy bruising or lymphadenopathy Allergic/Immunologic Allergic/Immunologic: Denies systems reviewed and no addt'l complaints, except as documented Vital Signs Vital Signs Vital Signs: 02/10/23 13:14 02/10/23 13:14 Temperature 98.6 F Temperature Source Temporal Pulse Rate 64 Respiratory Rate 17 Respiratory Pattern Normal Blood Pressure 123/83 H Blood Pressure Mean 96 Blood Pressure Source Monitor Blood Pressure Position Semi-Fowlers Blood Pressure Location Left Arm Pulse Ox 96 Oxygen Delivery Method Room Air Weight Weight: 152 lb 1.903 oz Body Mass Index (BMI) 23.8 Physical Exam Const alert General Appearance: cooperative Orientation / Consciousness: oriented to person HEENT hearing grossly normal bilaterally Head and Scalp: normal to inspection Face and Sinus: face symmetric Nose: external nose normal Mouth: oral and palatal mucosa normal Eyes conjunctivae normal General Eye: normal appearance of both eyes Neck full ROM General: normal visual inspection Lymph Lymphatic: no lymphadenopathy noted Chest inspection of chest normal and palpation of chest normal Chest: symmetrical chest wall rise Resp normal respiratory effort Effort and Inspection: able to speak in complete sentences Cardio regular rate GI non-distended Percussion: normal to percussion Rectal Exam: deferred Neuro Speech: speech normal Gait (Neuro): normal gait Assessment & Plan Assessment/Plan (1) Encounter for screening for malignant neoplasm of colon: PLAN: He was explained alternatives, risk, benefits including not withstanding bleeding, infection, sepsis, perforation, need for emergent surgery . He will have an ASA of 2. 02/10/23 7055 <Electronically signed by Jus Friend DO> Cosigner Signature (if applicable): CC: No Primary Care Physician; Jus Friend, DO~ Signed [facility] Work Phone: Hospital Discharge instructions Additional Instructions Follow-up with the vascular surgeon you referred to. Take Eliquis as prescribed. Return with worsening symptoms or concerns. If you fall and hit your head you need to be evaluated immediately in the emergency department as her chance that you will have a head bleed while on the blood thinning medication from the head trauma. You are also referred to a primary care physician if you not have 1. He should follow-up with them as well.[facility] Work Phone: Hospital Discharge instructions Additional Instructions You have a blood clot in your right calf. You have an effusion or fluid in your right knee. The fluid in your knee could be from the clot or from a knee injury like a meniscal tear or from the blood thinner and be a hemarthrosis or blood. Ice and elevate your leg to decrease the swelling. Continue your Eliquis. Follow-up with the vascular surgeon and also your MRI through [facility]. Tylenol for pain.[facility] Work Phone: Reason for referral (narrative)No reason for referral information availableWooTriHealth Work Phone: Reason for visit Narrative* Diagnostic Procedure Only (Urgent) - Closed Specialty Diagnoses / Procedures Referred By Shabnam reyes Referred To Contact XR IMAGING Diagnoses Acute pain of left knee Procedures XR KNEE POST OP 3V AP/LAT/MERCHANT LEFT RADIOLOGIC EXAMINATION KNEE 3 VIEWS Blaine Drake, MIGUELITO.RABBIT DRESSER [address] [place] [address] Phone: tel: fax: [place] [address] Referral ID Status Reason Start Date Expiration Date V isits Requested Visits Authorized [id number] Closed Auto-Generate d Referral 11/19/2024 12/19/2025 1 1 [facility] Chief Complaint and Reason for Visit Chief Complaint Amb Documentation LIGHTHEADED/ CP CHEST PAIN CHEST PAIN Reason for Visit Chest pain Chief Complaint Amb Documentation LIGHTHEADED/ CP CHEST PAIN CHEST PAIN Amb Documentation E ORDERS Reason for Visit Chest pain Chief Complaint Amb Documentation LIGHTHEADED/ CP CHEST PAIN CHEST PAIN Amb Documentation E ORDERS Amb Documentation CHEST PAIN Reason for Visit Chest pain Chief Complaint Amb Documentation LIGHTHEADED/ CP CHEST PAIN CHEST PAIN Amb Documentation E ORDERS Amb Documentation CHEST PAIN CHEST PAIN Reason for Visit Chest pain Encounter for screening for malignant neoplasm of colon Chief Complaint Admit Date DVT R/O November 29, 2024 4:1 0pm Chief Complaint Admit Date DVT R/O November 29, 2024 4:1 0pm LOWER EXT December 01, 2024 3:0 3pm Chief Complaint Admit Date DVT R/O November 29, 2024 4:1 0pm RLE PAIN/SWELLING November 29, 2024 4:2 7pm LOWER EXT December 01, 2024 3:0 3pm Deep vein thrombosis December 16, 2024 8: 27am M79.89 Other specified soft tissue disor ders February 22, 2025 7:58am 3 M FU February 22, 2025 8:54 am Reason for Visit Admit Date Deep vein thrombosis (DVT) December 16, 025 8:27am Family History No Family History Records Found Relationship Condition Age at Onset Recorded Date/T kwame father Coronary artery disease Unknown Hyperlipidemia Unknown grandfather Myocardial infarction Unknown grandmother Myocardial infarction Unknown Advance Directives No Advanced Directives Records Found Advance Directive Response Recorded Date/ Time Name of Medical Power of In Home Sales Representative February 05, 2023 9:25am Living Will Yes February 05, 2023 9 :25am Power of In Home Sales Representative Yes February 05, 2023 9:25am Advance Directive Response Recorded Date/ Time Living Will Yes November 29, 2024 4:42pm Do you have a Healthcare Power of In Home Sales Representative? Yes November 29, 2024 4:42pm Name of Medical Power of In Home Sales Representative Patricia November 29, 2024 4:42pm Advance Directive Response Recorded Date/ Time Living Will Yes November 29, 2024 4:42pm Do you have a Healthcare Power of In Home Sales Representative? Yes November 29, 2024 4:42pm Name of Medical Power of In Home Sales Representative Patricia November 29, 2024 4:42pm Living Will No December 01, 2024 4:35pm Do you have a Healthcare Power of In Home Sales Representative? No December 01, 2024 4:35pm Reason for Referral Specialty Diagnoses / Procedures Referred By Shabnam reyes Referred To Contact Dermatology Diagnoses Skin mass Procedures CONSULT TO DERMATOLOGY Blaine Drake APRN.RABBIT DRESSER [address] [place] [address] Referral ID Status Reason Start Date Expiration Date Visits Requested Visits Authorized [id number] Ref Not Required PCP Requested Referral 05/26/2024 05/26/2025 1 1 Summary Purpose Additional Source Comments Care Teams (unrecognized sec tion and content) Team Status: Active Member Role Status Dates No Primary Care Physician Primary Care Provider Active Team Status: Inactive Member Role Status Dates Dr. Jerome Garcia MD Attending Provider Active No Primary Care Physician Referring Provider Active Team Status: Active Member Role Status Dates Amanda Avalos Attending Provider Active Team Status: Active Member Role Status Dates No Primary Care Physician Primary Care Provider Active Dr. Jerome Garcia MD Attending Provider, Referring Provider, Other Provider Active Team Status: Inactive Member Role Status Dates No Primary Care Physician Primary Care Provider Active Dr. Jerome Garcia MD Attending Provider, Referring Pro vider Active Team Status: Active Member Role Status Dates No Primary Care Physician Primary Care Provider Active Yun Bazan Attending Provider Active Team Status: Active Member Role Status Dates No Primary Care Physician Primary Care Provider Active Rachel Drake Attending Provider Active Team Status: Active Member Role Status Dates No Primary Care Physician Primary Care Provider, Refer ring Provider Active Dr. Jus Schaeffer DO Attending Provider, Other Prov ider Active Team Status: Inactive Member Role Status Dates No Primary Care Physician Primary Care Provider, Refer ring Provider Active Dr. Jus Schaeffer DO Attending Provider Active Team Status: Inactive Member Role Status Dates No Primary Care Physician Primary Care Provider Active Start: November 29, 2024 End: November 29, 2024 Dr. Rl Buenrostro DO Emergency Provider Active Start: November 29, 2024 End: November 29, 2024 Team Status: Inactive Member Role Status Dates No Primary Care Physician Primary Care Provider Active Start: December 01, 2024 End: December 01, 2024 Dr. Erwin Meredith MD Emergency Provider Active S tart: December 01, 2024 End: December 01, 2024 Team Status: Inactive Member Role Status Dates No Primary Care Physician Primary Care Provider Active Start: November 29, 2024 End: November 29, 2024 Dr. Rl Buenrostro DO Attending Provider Active Start: November 29, 2024 End: November 29, 2024 Dr. Rl Buenrostro DO Emergency Provider Active Start: November 29, 2024 End: November 29, 2024 Team Status: Active Member Role Status Dates Dr. Hemant Newman MD Attending Provider Active Start: November 29, 2024 Dr. Rl Buenrostro DO Referring Provider Active Start: November 29, 2024 Team Status: Inactive Member Role Status Dates No Primary Care Physician Primary Care Provider Active Start: December 01, 2024 End: December 01, 2024 Dr. Erwin Meredith MD Attending Provider Active S tart: December 01, 2024 End: December 01, 2024 Dr. Erwin Meredith MD Emergency Provider Active S tart: December 01, 2024 End: December 01, 2024 Team Status: Inactive Member Role Status Dates No Primary Care Physician Primary Care Provider Active Start: December 16, 2024 End: December 16, 2024 No Primary Care Physician Referring Provider Active Start: December 16, 2024 End: December 16, 2024 JOSEFA Platt Attending Provider Active Star t: December 16, 2024 End: December 16, 2024 Team Status: Active Member Role Status Dates No Primary Care Physician Primary Care Provider Active Start: February 22, 2025 JOSEFA Platt Attending Provider Active Star t: February 22, 2025 JOSEFA Platt Referring Provider Active Star t: February 22, 2025 Team Status: Inactive Member Role Status Dates No Primary Care Physician Primary Care Provider Active Start: February 22, 2025 End: February 22, 2025 No Primary Care Physician Referring Provider Active Start: February 22, 2025 End: February 22, 2025 JOSEFA Platt Attending Provider Active Star t: February 22, 2025 End: February 22, 2025 Goals (unrecognized section and content) Goals may be documented in a n alternate sectionGoals may be documented in an alternate sectionGoals may be documented in an alternate sectionGoals may be documented in an alternate sectionGoals may be documented in an alternate sectionGoals may be documented in an alternate section Source Comments (unrecognize d section and content) In the event this informatio n is protected by the Federal Confidentiality of Alcohol and Drug Abuse Patient Records regulations: The Federal rules restrict any use of the information to criminally investigate or prosecute any alcohol or drug abuse patient.[facility] RehabilitationIn the event this information is protected by the Federal Confidentiality of Alcohol and Drug Abuse Patient Records regulations: The Federal rules restrict any use of the information to criminally investigate or prosecute any alcohol or drug abuse patient.[facility] RehabilitationIn the event this information is protected by the Federal Confidentiality of Alcohol and Drug Abuse Patient Records regulations: The Federal rules restrict any use of the information to criminally investigate or prosecute any alcohol or drug abuse patient.[facility] RehabilitationIn the event this information is protected by the Federal Confidentiality of Alcohol and Drug Abuse Patient Records regulations: The Federal rules restrict any use of the information to criminally investigate or prosecute any alcohol or drug abuse patient.[facility] RehabilitationIn the event this information is protected by the Federal Confidentiality of Alcohol and Drug Abuse Patient Records regulations: The Federal rules restrict any use of the information to criminally investigate or prosecute any alcohol or drug abuse patient.[facility] RehabilitationIn the event this information is protected by the Federal Confidentiality of Alcohol and Drug Abuse Patient Records regulations: The Federal rules restrict any use of the information to criminally investigate or prosecute any alcohol or drug abuse patient.[facility] Reason for Visit (unrecogniz ed section and content) Reason Comments Lump On RIGHT lower leg/ calf area Reason Comments Consult Reason Comments Fever Body aches, nasal co ngestion, headache x 36 hours Reason Comments Knee Pain right x 2 hours, den ies injury (unrecognized sect ion and content) No Status Records FoundNo Status Records Found INFORMATION SOURCE (unrecogn ized section and content) DATE CREATED AUTHOR 11/30/2024 [facility] DATE CREATED AUTHOR AUTHOR'S ORGANIZ ATION 02/28/2025 [facility] FOR RECORDS PERTAINING TO PATIENTS WHO ARE OR HAVE BEEN ENROLLED IN A CHEMICAL DEPENDENCY/SUBSTANCEABUSE PROGRAM, SOME INFORMATION MAY BE OMITTED. This clinical summary was aggregated from multiple sources. Caution should be exercised in using it in the provision of clinical care. This summary normalizes information from multiple sources, and as a consequence, information in this document may materially change the coding, format and clinical context of patient data. In addition, data may be omitted in some cases. CLINICAL DECISIONS SHOULD BE BASED ON THE PRIMARY CLINICAL RECORDS. [facility]. provides no warranty or guarantee of the accuracy or completeness of information in this document.
--- NOTE | 2025-03-03 07:00 | CT_ITS ---
PROCEDURE: LIMITED CHEST CT CARDIAC ONLY 03/03/2025 REASON FOR EXAM: SCREEN TECHNIQUE: Limited CT for coronary artery calcium scoring. One or more dose reduction techniques were used (e.g., Automated exposure control, adjustment of the mA and/or kV according to patient size, use of iterative reconstruction technique). RADIATION DOSE SUMMARY: CTDlvol: 12.19 mGy DLP: 195.04 mGycm COMPARISON: Prior study of 12/15/2022. CT/Limited Chest CT Cardiac Only IMPRESSION: Limited imaging of the lungs demonstrates no acute process. No pleural effusion or pneumothorax is seen in visualized areas. No adenopathy is noted. The visualized upper abdomen demonstrates no significant abnormality. Reading Location: [place] [id number]
--- NOTE | 2025-03-07 17:07 | CA.SCORE ---
Calcium Scoring Date of Study:: 03/03/25 Indications Indications: FH Coronary Calcium Scoring: High-resolution Computed Tomographic imaging of the chest was performed on [03/03/25 ], with particular attention paid to the coronary arteries. Images from the examination were analyzed for the presence and extent of coronary artery calcification , using coronary calcium quantification software. The patient tolerated the procedure well and there were no complications. The results of the coronary calcification analysis are provided below. Findings Coronary Artery Left Main (LM): 0 Left Anterior Descending (LAD): 0 Left Circumflex (LCX): 0 Right Coronary Artery (RCA): 0 Total Agatston Score: 0 Percentile Rankin% Calcium Scoring Interpretation: Different methods to categorize the overall amount of coronary plaque. Overall amount CAC SIS Visual of coronary plaque P1 Mild -100 <2 1-2 vessels with mild amount of plaque P2 Moderate 101-300 3-4 1-2 vessels with moderate amount, 3 vessels with mild amount of plaque P3 Severe 301-999 5-7 3 vessels with moderate amount, 1 vessel with severe amount of plaque P4 Extensive >1000 >8 2-3 vessels with severe amount of plaque Conclusion: No atherosclerotic plaquing noted
== END | disposition home or self-care (01) ==
PROVIDERS: Referring Provider Physician Assistant Medical; Visit Provider Physician Assistant Medical
DX: Z00.00 Encounter for general adult medical examination without abnormal findings (principal); Z82.49 Family history of ischemic heart disease and other diseases of the circulatory system
CPT/HCPCS: 75571; 76380

== ENCOUNTER → 2025-04-17 | Outpatient (CLI) | payer BC, SELFPAY ==
--- NOTE | 2025-04-17 11:02 | VDLE_ITS ---
Reason For Study Reason For Study: HX RLE DVT RIGHT LEFT GSV is normal. FV is compressible, spontaneous, phasic, competent CFV is compressible, spontaneous, phasic, competent and demonstrates normal augmentation. and demonstrates normal augmentation. FV is compressible, spontaneous, phasic, competent and demonstrates normal augmentation. POP V is compressible, spontaneous, phasic, competent and demonstrates normal augmentation. T/P Trunk is compressible. PTV is compressible. RT PerV is compressible. Rt Gastrocnemius Vein is PARTIALLY COMPRESSIBLE with mixed intraluminal echoes noted. Procedure This is a venous duplex using B-mode, color flow and spectral Doppler. Exam performed in department. The exam was diagnostic. VL/Venous Duplex US, Unilateral Interpretation Summary Chronic deep vein thrombosis is noted in the right gastrocnemius vein. Ordering Physician: Sapna Grant Referring Physician: N/A Performed By: Abhi Duncan RVT
--- NOTE | 2025-04-17 11:02 | VDLE_ITS ---
Reason For Study Reason For Study: HX RLE DVT RIGHT LEFT GSV is normal. FV is compressible, spontaneous, phasic, competent CFV is compressible, spontaneous, phasic, competent and demonstrates normal augmentation. and demonstrates normal augmentation. FV is compressible, spontaneous, phasic, competent and demonstrates normal augmentation. POP V is compressible, spontaneous, phasic, competent and demonstrates normal augmentation. T/P Trunk is compressible. PTV is compressible. RT PerV is compressible. Rt Gastrocnemius Vein is PARTIALLY COMPRESSIBLE with mixed intraluminal echoes noted. Procedure This is a venous duplex using B-mode, color flow and spectral Doppler. Exam performed in department. The exam was diagnostic. VL/Venous Duplex US, Unilateral Interpretation Summary Chronic deep vein thrombosis is noted in the right gastrocnemius vein. Ordering Physician: Sapna Grant Referring Physician: N/A Performed By: Abhi Duncan RVT
--- OUTSIDE RECORDS SUMMARY | 2025-04-17 15:27 | XMS RPT_ITS | CCD ---
Author Organization [facility] Care Team Providers Care [employer] Name Role Phone Amanda Avalos Attending Provider UnavailDr. Jerome Wynn Attending Provider [phone] Care Physician, No Primary Referring Provider Un available Care Physician, No Primary Primary Care Provider Unavailable Dr. Jerome Garcia Referring Provider [phone] Jerome Garcia Other Provider Yun Bazan Attending Provider Unavailable Rachel Drake Attending Provider Unavailable Dr. Jus Schaeffer Attending Provider [phone] FriendDr. Luu Other Provider [phone] Unavailable Primary Care Provider UnavailBLAINE Dinh Referring Unavailable Care Physician, No Primary Primary Care Provider Unavailable Dr. Rl Buenrostro DO Emergency Provider Dr. Erwin Meredith MD Emergency Provider Dr. Rl Buenrostro DO Attending Provider Dr. Hemant Newman MD Attending Provider Dr. Rl Buenrostro DO Referring Provider Dr. Erwin Meredith MD Attending Provider [phone] Care Physician, No Primary Referring Provider Un available Sapna Paniagua Attending Provider [phone] Sapna Paniagua Referring Provider [phone] Stevo Duarte MD Attending Provider [phone] Clari Osman Attending Provider [phone] Clari Osman Referring Provider [phone] Care Physician, No Primary Primary Care Unava ilable Grant, Sapna Referring Unavailable Stevo Duarte Attending Unavailable Care Physician, No Primary Primary Care Unava ilable Clari Osman Referring Unavail able Jerome Garcia Attending Unavailable Care Physician, No Primary Primary Care Unava ilable Clari Osman Consulting Unavail able Clari Osman Referring Unavail able Jerome Garcia Attending Unavailable Care Physician, No Primary Referring Unava ilable Grant, Sapna Attending Unavailable Care Physician, No Primary Primary Care Unava ilable Grant, Sapna Attending Unavailable Care Physician, No Primary Primary Care Unava ilable Care Physician, No Primary Referring Unava ilable Rl Buenrostro Attending Unavailable Care Physician, No Primary Primary Care Unava ilable Care Physician, No Primary Primary Care Unava ilable Grant, Sapna Attending Unavailable Grant, Sapna Referring Unavailable Care Physician, No Primary Primary Care Unava ilable Grant, Sapna Attending Unavailable Grant, Sapna Referring Unavailable Clari Osman Attending Unavail able Clari Osman Referring Unavail able Care Physician, No Primary Primary Care Unava ilable Erwin Meredith Attending Unavailable Care Physician, No Primary Primary Care Unava ilable Medications Current Medications Medication Drug Class(es) Dates Sig (Normalized) Sig (Original) apixaban 5 mg oral tablet (7 sources) Factor Xa Inhibitor Start: 12-16-2024 End: 02-22-2025 take 1 tablet by mouth twice daily Apixaban (Eliquis) 5 mg tablet Active 5 mg PO TWICE A DAY 60 1 February 22, 2025 9:38am Start: 11-29-2024 End: 02-22-2025 take 1 tablet by mouth once Apixaban (Eliquis Dvt-Pe T reat 30d Start) 5 mg (74 tabs) tablets,dose pack Discontinued 0 PO .COMPLEX 74 0 November 29, 2024 12:00am February 22, 2025 9:06am orally per package directions oseltamivir 75 mg oral capsule (1 source) Neuraminidase Inhibitor Start: 10-15-2024 End: 10-20-2024 take 1 capsule by mouth twice daily oseltamivir (TAMIFLU) 75 mg capsule Indications: Influenza A Take 1 capsule by mouth two times a day for 5 days. 10 capsule 10/15/2024 10/20/2024 Active Problems Active Problems Problem Classification Problem Date Documented Da te Episodic/Chronic Cardiac dysrhythmias (8 sources) Palpitations; Translations: [Palpitations] 10-16-2022 Episodic Conditions associated with dizziness or vertigo (8 sources) Lightheadedness; Translations: [Dizziness and giddiness] 10-16-2022 Episodic Fever of unknown origin (1 source) Fever; Translations: [Fever, unspecified] 10-15-2024 Episodic Influenza (1 source) Influenza due to Influenza A virus; Translations: [Influenza due to other identified influenza virus with other respiratory manifestations] 10-15-2024 Episodic Nonspecific chest pain (12 sources) Chest pain; Translations: [Chest pain, unspecified] 10-16-2022 Episodic Comment on above: 11/2022 Other connective tissue disease (2 sources) Swelling of right lower limb; Translations: [Other specified soft tissue disorders] 12-16-2024 Episodic Other connective tissue disease (2 sources) Other specified soft tissue disorders; Translations: [Other specified soft tissue disorders] Onset: 12-16-2024 Episodic Other connective tissue disease (2 sources) Pain in right leg; Translations: [Pain in right leg] Onset: 12-16-2024 Episodic Other non-traumatic joint disorders (1 source) Pain in right knee; Translations: [Pain in joint, lower leg] 11-19-2024 Episodic Other non-traumatic joint disorders (3 sources) Effusion of right knee joint; Translations: [Effusion, right knee] 12-01-2024 Episodic Other screening for suspected conditions (not mental disorders or infectious disease) (7 sources) Patient encounter status; Translations: [Encounter for screening for malignant neoplasm of colon] 12-12-2022 Episodic Other skin disorders (1 source) Mass of skin; Translations: [Localized swelling, mass and lump, unspecified] 05-26-2024 Episodic Other upper respiratory infections (1 source) Upper respiratory infection; Translations: [Acute upper respiratory infection, unspecified] 10-15-2024 Episodic Phlebitis; thrombophlebitis and thromboembolism (10 sources) Acute deep vein thrombosis of lower limb; Translations: [Acute embolism and thrombosis of unspecified deep veins of right lower extremity] Onset: 12-16-2024 11-29-2024 Episodic Residual codes; unclassified (2 sources) Family history of ischemic heart disease; Translations: [Family history of ischemic heart disease and other diseases of the circulatory system] 02-06-2025 Episodic Unclassified (2 sources) Acute pain of right knee 11-19-2024 Past or Other Problems Problem Classification Problem Date Documented Da te Episodic/Chronic Other connective tissue disease (1 source) Pain in right lower leg; Translations: [Pain in right lower leg] Onset: 12-05-2024 Episodic Other non-traumatic joint disorders (1 source) Effusion, right knee; Translations: [Effusion, right knee] Onset: 12-06-2024 Episodic Results Test Name Value Interpretation Reference Range Facility Coronary Angiography CTon Coronary Angiography CT [facility] Imaging Services [address] [place] [address] 03/07/25 170 MR#: [id number] Acct: [id number] Name: ASHLYN LEE Rep #: [id number] : 1975 49 From: Jerome Garcia MD PCP: Care Physician,No Primary Status:REG CLI Y Location: CT Calcium Scoring Date of Study:: 03/03/25 Indications Indications: FH Coronary Calcium Scoring: High-resolution Computed Tomographic imaging of the chest was performed on [03/03/25 ], with particular attention paid to the coronary arteries. Images from the examination were analyzed for the presence and extent of coronary artery calcification , using coronary calcium quantification software. The patient tolerated the procedure well and there were no complications. The results of the coronary calcification analysis are provided below. Findings Coronary Artery Left Main (LM): 0 Left Anterior Descending (LAD): 0 Left Circumflex (LCX): 0 Right Coronary Artery (RCA): 0 Total Agatston Score: 0 Percentile Rankin% Calcium Scoring Interpretation: Different methods to categorize the overall amount of coronary plaque. Overall amount CAC SIS Visual of coronary plaque P1 Mild -100 <2 1-2 vessels with mild amount of plaque P2 Moderate 101-300 3-4 1-2 vessels with moderate amount, 3 vessels with mild amount of plaque P3 Severe 301-999 5-7 3 vessels with moderate amount, 1 vessel with severe amount of plaque P4 Extensive >1000 >8 2-3 vessels with severe amount of plaque Conclusion: No atherosclerotic plaquing noted 03/07/25 1708 Date Jerome Garcia MD Cosigner Signature (if applicable): Date CC: Dr. Jerome Garcia MD; JOSEFA Faustin; No Primary Care Physician Signed Normal [facility] Limited Chest CT Cardiac Onl yon 03-03-[address] Cardiac Only [facility] Imaging Services [address] [place] [id number] Cardiac Only MR#: [id number] Acct: [id number] Name: ASHLYN LEE Rep #: [id number] : 1975 M 49 From: Alexei Gonzalez PCP: Care Physician,No Primary Status: [facility] Study: Limited Chest CT Cardiac Only Date of Exam: Exam# [id number] Ordering Dr: Clari Garcia PROCEDURE: LIMITED CHEST CT CARDIAC ONLY 03/03/2025 REASON FOR EXAM: SCREEN TECHNIQUE: Limited CT for coronary artery calcium scoring. One or more dose reduction techniques were used (e.g., Automated exposure control, adjustment of the mA and/or kV according to patient size, use of iterative reconstruction technique). RADIATION DOSE SUMMARY: CTDlvol: 12.19 mGy DLP: 195.04 mGycm COMPARISON: Prior study of 12/15/2022. CT/Limited Chest CT Cardiac Only IMPRESSION: Limited imaging of the lungs demonstrates no acute process. No pleural effusion or pneumothorax is seen in visualized areas. No adenopathy is noted. The visualized upper abdomen demonstrates no significant abnormality. Reading Location: [place] [address] CC: JOSEFA Faustin; No Primary Care Physician Structural Mill Supervisor: Signed Normal [facility] MR/BMS.Toyin 02-22-2025 MR/BMS.BVS [facility] Vascular Surgery [address] [place] [address] OFFICE VISIT Date of Service: 02/22/25 MR#: [id number] Acct: [id number] Name: ASHLYN LEE Rep #: [id number] : 1975 Provider: JOSEFA Platt Age/Sex: 49/M Location: [facility] Status: Signed Intake Vital Signs 12/01/24 15:04 [...] R ACL reconstruction with Dr. Sullivan at [facility] on 03/14/2025 and needs clearance/anticoagul ation recommendations [...] EOM intact (more content not included)... Normal [facility] Venous Duplex US, Unilateral on 02-22-2025 Venous Duplex US, Unilateral [facility] Cardiovascular Services [address] [place] [address] Venous Duplex US, Unilateral 02/22/25 0811 MR#: [id number] Acct: [id number] Name: ASHLYN LEE Rep #: [id number] : 1975 49 From: Stevo Duarte MD [...] No Primary Care Physician Date Dictated: 02/22/25 0811 Date Transcribed: 02/27/25 143 Structural Mill Supervisor: Signed [facility] MR/BMS.Rob 12-16-2024 MR/BMS.S [facility] [address] [place] [address] OFFICE VISIT Date of Service: 12/16/24 MR#: [id number] Acct: [id number] Name: ASHLYN LEE Rep #: [id number] : 1975 Provider: JOSEFA Platt Age/Sex: 49/M Location: [facility] Status: Signed Intake Vital Signs 11/29/24 16:11 [...] the past year?: No PFSH Medical History Wears glasses Alcohol use [...] days later went on a trip to [facility], used crutches while there. While there, [...] coordination, N (more content not included)... Normal [facility] Emergency Department Summary on 12-01-2024 Emergency Department Summary [facility] Medical Records Department [address] [place] [address] Emergency Department Summary 12/01/24 MR#: [id number] Acct: [id number] Name: ASHLYN LEE Rep #: [id number] : 1975 49 From: Erwin Meredith MD [...] L Respi (more content not included)... Normal [facility] BERTR[facility]EE ([id number]) 1975 M Date Time Provider Department 11/29/24 SELF PEDSWS During your visit today, we recorded the following information about you: Clari Estevez 11/29/2024 12:16 PM Signed Patient would like to pick up worker CD of x-ray done on 11/19/24. Geri Scott PSS 11/29/2024 1:23 PM Signed CD READY FOR CORRECTIONAL COUNSELOR/CASE MANAGER AT [facility] Allergies As of Date: 11/29/2024 (No Known Allergies) Date Reviewed: 11/19/2024 Reviewed by: Shae Sharp MA - Fully Assessed Problem List As Of Date: 11/29/2024 (None) Encounter Status:Closed by CLARI ESTEVEZ on 11/29/24 Normal [facility] Emergency Department Summary on 11-29-2024 Emergency Department Summary [facility] Medical Records Department [address] [place] [address] Emergency Department Summary 11/29/24 MR#: [id number] Acct: [id number] Name: ASHLYN LEE Rep #: [id number] : 1975 49 From: Rl Buenrostro DO [...] that he recently took a trip to [facility] and notes that he has some [...] Patient denies any history of blood clots. [facility] Medical History Wears glasses Alcohol use Heartburn [...] following commands knew that he was at [facility] year is 2024 Skin: Warm, dry, intact [...] right calf after a recent trip to [facility]. On the differential diagnose includes but [...] Prescriptions: No Action NK Primary Care Provider: Leeanna (more content not included)... Normal [facility] Venous Duplex US, Unilateral on 11-29-2024 Venous Duplex US, Unilateral [facility] Cardiovascular Services [address] [place] [address] Venous Duplex US, Unilateral 11/29/24 1627 MR#: [id number] Acct: [id number] Name: ASHLYN LEE Rep #: [id number] : 1975 49 From: Hemant Newman MD [...] Physician: N/A Performed By: Abhi Duncan, T 11/29/241955 Date Hemant Newman MD CC: Dr. Rl Buenrostro, DO; No Primary Care Physician Date Dictated: 11/29/241626 Date Transcribed: 11/29/241955 Structural Mill Supervisor: [facility] 11-19-2024 [facility] Office Visit (UCTR) BERTRAND LEE ([id number]) 1975 M Date Time Provider Department 11/19/24 12:00 PM BLAINE DRAKE [facility] During your visit today, we recorded the following information about you: Temperature Pulse Respiration Blood pressure 98.2 degrees 70/minute 16/minute 122/68 Weight 70.3 kg Teri DrakenathanMILTON 11/19/2024 1:37 PM Signed [facility] [...] MD - CONSULT TO ORTHOPAEDICS Blaine Drake APRN.ROBOTICS MECHANIC [facility] Procedures Allergies As of Date: 11/19/2024 (No Known Allergies) Date Reviewed: 11/19/2024 Reviewed by: Shae Sharp MA - Fully Assessed Reason for Visit: Knee Pain [132] Cmt: right x 2 hours, denies injury Primary Visit Diagnosis:Acute pain of right knee [M25.561] Order(s):XR KNEE POST OP 3V AP/LAT/MERCHANT RIGHT [3826942] Order #: [id number]. #:[id number] CONSULT TO ORTHOPAEDICS [9026] Order #: [id number]: 1 FUTURE Problem List As Of Date: 11/19/2024 (None) Encounter Status:Closed by BLAINE DRAKE on 11/19/24 [facility] XR KNEE 3V AP/LAT/MERCHANT R Ton 11-19-2024 [...] Mild degenerative changes in the right knee. Structural Mill Supervisor: PSCB Transcribe Date/Time: Nov 19 2024 1:16P Dictated by : KARON MA MD This examination was interpreted and the report reviewed and electronically signed by: KARON MA MD on Nov 19 2024 1:17PM EST [id number] Normal [facility] XR Knee AP and Lateral and M car 11-19-2024 IMPRESSION: Mild degenerative changes in the right knee. Structural Mill Supervisor: BETHEL Transcribe Date/Time: Nov 19 2024 1:16P [...] soft tissue swelling. DIVISION OF RADIOLOGY Provider, [facility] - 11/19/2024 * * *Final Report* [...] Mild degenerative changes in the right knee. Structural Mill Supervisor: BETHEL Transcribe Date/Time: Nov 19 2024 1:16P Dictated by : KARON MA MD This examination was interpreted and the report reviewed and electronically signed by: KARON MA MD on Nov 19 2024 1:17PM EST [facility] Radiology Study observation (narrative) [facility] XR Knee AP and Lateral and M erchantsOrdered By: Ccf Provider on 11-19-2024 [facility] CNOVon 10-15-2024 CNOV Office Visit (UCWSTR) TOMYBERTRAND ([id number]) 1975 M Date Time Provider Department 10/15/24 10:15 AM EMILY DUNNE [facility] During your visit today, we recorded the following information about you: Temperature Pulse Respiration Blood pressure 99.8 degrees 94/minute 20/minute 122/94 Weight 70 kg Emily Dunne APRN.ROBOTICS MECHANIC 10/15/2024 10:15 AM Signed This note was created using [employer]. Subjective Bertrand Lee is a 49 year [...] ICD10: J10.1 - OSELTAMIVIR 75 MG CAPSULE Emiyl Dunne APRN.ROBOTICS MECHANIC Allergies As of Date: 10/15/2024 (No Known Allergies) Date Reviewed: 10/15/2024 Reviewed by: Martita Leslie LPN - Fully Assessed Reason for Visit: Fever [47] Cmt: Body aches, nasal congestion, headache x 36 hours Primary Visit Diagnosis:URI with cough and congestion [J06.9] Other Visit Diagnoses:Fever, unspecified fever cause [R50.9] Influenza A [J10.1] Order(s):INFLUENZA AANDB MOLECULAR (POC) [1524986] Order #: [id number]. #:[id number] oseltamivir (TAMIFLU) 75 mg capsuleTake 1 capsule [...] for Encounter Date Provider Department Center 10/15/2024 [id number] DUNNE [facility] Encounter Status:Closed by EMILY DUNNE on 10/15/24 [facility] INFLUENZA A&B MOLECULAR (POC )on 10-15-2024 Flu A (POCT) Positive Abnormal Negative [facility] Comment on above: Location: [place], [address], [place], [address] Interpretation and review of laboratory results Abnormal [facility] Procedural Control Valid [facility] Location: [place], [address], [place], [address] [facility] POINT OF CARE [facility] CNPNon 06-07-2024 CNPN Telephone (FAMPWS) BERTRAND LEE ([id number]) 1975 M Date Time Provider Department 06/07/24 NO PCP FAMPWS During your visit today, we recorded the following information about you: Rachel Golden LPN 06/07/2024 4:18 PM Signed Pt calls to report he was seen in on 05/26/24 and referred to [facility]. Pt is requesting order be faxed to: [phone]. Order faxed as requested. Rachel Golden LPN Allergies As of Date: 06/07/2024 (No Known Allergies) Date Reviewed: 05/26/2024 Reviewed by: Mary Beth Edwards MA - Fully Assessed Reason for Visit: Consult [502] Problem List As Of Date: 06/07/2024 (None) Encounter Status:Closed by RACHEL GOLDEN on 06/07/24 Normal [facility] CNOVon 05-26-2024 CNOV Office Visit (UCWSTR) BERTRAND LEE ([id number]) 1975 M Date Time Provider Department 05/26/24 2:45 PM BLAINE DRAKE [facility] During your visit today, we recorded the following information about you: Temperature Pulse Respiration Blood pressure 98.2 degrees 64/minute 16/minute 124/86 Weight 72.2 kg Blaine Drake APRN.ROBOTICS MECHANIC 05/26/2024 3:09 PM Signed Subjective HPI HPI [...] 782.2, ICD10: R22.9 Refer to dermatology Call [facility] Dermatology for appointment. - CONSULT TO DERMATOLOGY Blaine Drake APRN.ROBOTICS MECHANIC Allergies As of Date: 05/26/2024 (No Known Allergies) Date Reviewed: 05/26/2024 Reviewed by: Mary Beth Edwards MA - Fully Assessed Reason for Visit: Lump [21216] Cmt: On RIGHT lower leg/ calf area Primary Visit Diagnosis:Skin mass [R22.9] Order(s):CONSULT TO DERMATOLOGY [9006] Order #: [id number]: 1 FUTURE Problem List As Of Date: 05/26/2024 (None) Encounter Status:Closed by BLAINE DRAKE on 05/26/24 Normal [facility] Sims Basophil percentageOrdered B y: Dr. Garcia on 11-28-2022 Bilirubin [Mass/Vol] 0.70 mg/dL 0.20-1.[address] [facility] Comment on above: For patients on eltr ombopag therapy, use of Dimension [place] TBIL is not recommended. Cholesterol [Mass/Vol] 208 mg/dL <200 [facility] Comment on above: <200 mg/dL Desirable 200-240 mg/dL Borderline >240 mg/dL High Risk Protein [Mass/Vol] 7.4 g/dL 6.4-8.2 [facility] Triglyceride [Mass/Vol] 50 mg/dL <199 [facility] Comment on above: The drugs N-Acetylcy steine and Metamizole may falsely depress this assay.Serum Triglycerides Reference Interval Normal <150 mg/dL Borderline high 150 - 199 mg/dL High 200 - 499 mg/dL Very High > or = 500 mg/dL Direct bilirubinOrdered By: Dr. Garcia on 11-28-2022 Bilirubin.direct [Mass/Vol] 0.19 mg/dL 0.00-0.30 [facility] Laboratory - Chemistry and C hemistry - challengeOrdered By: Dr. Garcia on 11-28-2022 ALP [Catalytic activity/Vol] 60 U/L 45-117 [facility] ALT [Catalytic activity/Vol] 25 U/L 16-61 [facility] Globulin (S) [Mass/Vol] 3.2 g/dL 2.2-4.2 [facility] Serum or plasma albumin rafia urement (mass/volume)Ordered By: Dr. Garcia on 11-28-2022 Albumin [Mass/Vol] 4.2 g/dL 3.2-5.0 [facility] Serum or plasma cholesterol in HDL measurement (mass/volume)Ordered By: Dr. Garcia on 11-28-2022 Cholesterol in HDL [Mass/Vol] 80 mg/dL >40 [facility] Comment on above: The drugs N-Acetylcy steine and Metamizole may falsely depress this assay. Reference Range HDL <40 mg/dL Low HDL Cholesterol HDL >or= 60 mg/dL High HDL Cholesterol Serum or plasma cholesterol in VLDL measurement (mass/volume)Ordered By: Dr. Garcia on 11-28-2022 Cholesterol in VLDL [Mass/Vol] 10 mg/dL 5-40 [facility] Serum or plasma low density lipoprotein (LDL) cholesterol measurement (mass/volume)Ordered By: Dr. Garcia on 11-28-2022 Cholesterol in LDL [Mass/Vol] 118 mg/dL 0-130 [facility] Thin prep Papanicolaou smear with manual screeningOrdered By: Dr. Garcia on 11-28-2022 Thin prep Papanicolaou smear with manual screening 28 U/L 15-37 [facility] Vital Signs Date Time Vital Sign Value Performing Clinician Facility 02-22-2025 09:05-0400 Body temperature 98 [degF] No Primary Care Physician [facility] 02-22-2025 09:05-0400 Body weight 71.66 kg No Primary Care Physician [facility] 02-22-2025 09:05-0400 Diastolic blood pressure 76 mm[Hg] No Primary Care Physician [facility] 02-22-2025 09:05-0400 Heart rate 73 /min No Primary Care Physician [facility] 02-22-2025 09:05-0400 Respiratory rate 16 /min No Primary Care Physician [facility] 02-22-2025 09:05-0400 SaO2% (BldA) [Mass fraction] 97 % No Primary Care Physician [facility] 02-22-2025 09:05-0400 Systolic blood pressure 108 mm[Hg] No Primary Care Physician [facility] 12-16-2024 08:42-0400 Body temperature 98 [degF] No Primary Care Physician [facility] 12-16-2024 08:42-0400 Body weight 68.49 kg No Primary Care Physician [facility] 12-16-2024 08:42-0400 Diastolic blood pressure 73 mm[Hg] No Primary Care Physician [facility] 12-16-2024 08:42-0400 Heart rate 63 /min No Primary Care Physician [facility] 12-16-2024 08:42-0400 Respiratory rate 16 /min No Primary Care Physician [facility] 12-16-2024 08:42-0400 SaO2% (BldA) [Mass fraction] 99 % No Primary Care Physician [facility] 12-16-2024 08:42-0400 Systolic blood pressure 111 mm[Hg] No Primary Care Physician [facility] 12-01-2024 15:04-0400 Body height 170.18 cm No Primary Care Physician [facility] 12-01-2024 15:04-0400 Body temperature 97.1 [degF] No Primary Care Physician [facility] 12-01-2024 15:04-0400 Diastolic blood pressure 86 mm[Hg] No Primary Care Physician [facility] 12-01-2024 15:04-0400 Heart rate 58 /min No Primary Care Physician [facility] 12-01-2024 15:04-0400 Respiratory rate 13 /min No Primary Care Physician [facility] 12-01-2024 15:04-0400 SaO2% (BldA) [Mass fraction] 100 % No [facility] [facility] 12-01-2024 15:04-0400 Systolic blood pressure 123 mm[Hg] No Primary Care Physician [facility] 11-29-2024 17:11-0400 Body temperature 98 [degF] No Primary Care Physician [facility] 11-29-2024 17:11-0400 Diastolic blood pressure 76 mm[Hg] No Primary Care Physician [facility] 11-29-2024 17:11-0400 Heart rate 62 /min No Primary Care Physician [facility] 11-29-2024 17:11-0400 Respiratory rate 14 /min No Primary Care Physician [facility] 11-29-2024 17:11-0400 SaO2% (BldA) [Mass fraction] 99 % No Primary Care Physician [facility] 11-29-2024 17:11-0400 Systolic blood pressure 109 mm[Hg] No Primary Care Physician [facility] 11-29-2024 16:11-0400 Body height 170.18 cm No Primary Care Physician [facility] 11-29-2024 16:11-0400 Body mass index (BMI) [Ratio] 24 kg/m2 No Primary Care Physician [facility] 11-29-2024 16:11-0400 Body weight 69.44 kg No Primary Care Physician [facility] 11-19-2024 12:03-0400 Body mass index (BMI) [Ratio] 23.92 kg/m2 Blaine Drake APRN.ROBOTICS MECHANIC Work Phone: [facility] 11-19-2024 12:03-0400 Body temperature 98.2 [degF] Blaine Drake APRN.ROBOTICS MECHANIC Work Phone: [facility] 11-19-2024 12:03-0400 Body weight 70.31 kg Blaine Drake APRN.ROBOTICS MECHANIC Work Phone: [facility] 11-19-2024 12:03-0400 Diastolic blood pressure 68 mm[Hg] Blaine Drake APRN.ROBOTICS MECHANIC Work Phone: [facility] 11-19-2024 12:03-0400 Heart rate 70 /min Blaine Drake APRN.ROBOTICS MECHANIC Work Phone: [facility] 11-19-2024 12:03-0400 Respiratory rate 16 /min Blaine Drake APRN.ROBOTICS MECHANIC Work Phone: [facility] 11-19-2024 12:03-0400 SaO2% (BldA) [Mass fraction] 98 % Blaine Drake APRN.ROBOTICS MECHANIC Work Phone: [facility] 11-19-2024 12:03-0400 Systolic blood pressure 122 mm[Hg] Blaine rDake APRN.ROBOTICS MECHANIC Work Phone: [facility] 10-15-2024 09:54-0500 Body mass index (BMI) [Ratio] 23.81 kg/m2 Emily Dunne APRN.ROBOTICS MECHANIC Work Phone: [facility] 10-15-2024 09:54-0500 Body temperature 99.81 [degF] Emily Dunne APRN.ROBOTICS MECHANIC Work Phone: [facility] 10-15-2024 09:54-0500 Body weight 70 kg Emily Dunne APRN.ROBOTICS MECHANIC Work Phone: [facility] 10-15-2024 09:54-0500 Diastolic blood pressure 94 mm[Hg] Emily Dunne APRN.ROBOTICS MECHANIC Work Phone: [facility] 10-15-2024 09:54-0500 Heart rate 94 /min Emily Dunne APRN.ROBOTICS MECHANIC Work Phone: [facility] 10-15-2024 09:54-0500 Respiratory rate 20 /min Emily Dunne APRN.ROBOTICS MECHANIC Work Phone: [facility] 10-15-2024 09:54-0500 SaO2% (BldA) [Mass fraction] 96 % Emily Dunne APRN.ROBOTICS MECHANIC Work Phone: [facility] 10-15-2024 09:54-0500 Systolic blood pressure 122 mm[Hg] Emily Dunne APRN.ROBOTICS MECHANIC Work Phone: [facility] 05-26-2024 14:44-0400 Body mass index (BMI) [Ratio] 24.56 kg/m2 Blaine Drake APRN.ROBOTICS MECHANIC Work Phone: [facility] 05-26-2024 14:44-0400 Body temperature 98.2 [degF] Blaine Drake APRN.ROBOTICS MECHANIC Work Phone: [facility] 05-26-2024 14:44-0400 Body weight 72.2 kg Blaine Drake APRN.ROBOTICS MECHANIC Work Phone: [facility] 05-26-2024 14:44-0400 Diastolic blood pressure 86 mm[Hg] Blaine Drake APRN.ROBOTICS MECHANIC Work Phone: [facility] 05-26-2024 14:44-0400 Heart rate 64 /min Blaine Drake APRN.ROBOTICS MECHANIC Work Phone: [facility] 05-26-2024 14:44-0400 Respiratory rate 16 /min Blaine Drake PRODUCTION DISPATCHER.ROBOTICS MECHANIC Work Phone: [facility] 05-26-2024 14:44-0400 SaO2% (BldA) [Mass fraction] 98 % Blaine Drake PRODUCTION DISPATCHER.ROBOTICS MECHANIC Work Phone: [facility] 05-26-2024 14:44-0400 Systolic blood pressure 124 mm[Hg] Blaine Drake PRODUCTION DISPATCHER.ROBOTICS MECHANIC Work Phone: [facility] 02-10-2023 14:45-0400 Body temperature 97.3 [degF] No Primary Care Physician [facility] 02-10-2023 14:45-0400 Diastolic blood pressure 77 mm[Hg] No Primary Care Physician [facility] 02-10-2023 14:45-0400 Heart rate 58 /min No Primary Care Physician [facility] 02-10-2023 14:45-0400 Respiratory rate 16 /min No Primary Care Physician [facility] 02-10-2023 14:45-0400 SaO2% (BldA) [Mass fraction] 98 % No Primary Care Physician [facility] 02-10-2023 14:45-0400 Systolic blood pressure 103 mm[Hg] No Primary Care Physician [facility] 02-10-2023 13:14-0400 Body height 170.18 cm No Primary Care Physician [facility] 02-10-2023 13:14-0400 Body mass index (BMI) [Ratio] 23.8 kg/m2 No Primary Care Physician [facility] 02-10-2023 13:14-0400 Body weight 69 kg No Primary Care Physician [facility] 12-12-2022 11:30-0400 Body height 170.18 cm No Primary Care Physician [facility] 12-12-2022 11:30-0400 Body mass index (BMI) [Ratio] 24.3 kg/m2 No Primary Care Physician [facility] 12-12-2022 11:30-0400 Body weight 70.3 kg No Primary Care Physician [facility] 11-05-2022 14:35-0500 Body height 170.18 cm No Primary Care Physician [facility] 11-05-2022 14:35-0500 Body mass index (BMI) [Ratio] 24.1 kg/m2 No Primary Care Physician [facility] 11-05-2022 14:35-0500 Body weight 69.85 kg No Primary Care Physician [facility] 11-05-2022 14:35-0500 Diastolic blood pressure 76 mm[Hg] No Primary Care Physician [facility] 11-05-2022 14:35-0500 Heart rate 73 /min No Primary Care Physician [facility] 11-05-2022 14:35-0500 Respiratory rate 16 /min No Primary Care Physician [facility] 11-05-2022 14:35-0500 Systolic blood pressure 118 mm[Hg] No Primary Care Physician [facility] Encounters Encounter Date Encounter Type Care Provider Facility Start: 04-17-2025 ambulatory No Primary Car e Physician Facility:[facility] Start: 03-20-2025 Encounter for genera l adult medical examination without abnormal findings [facility] Start: 03-07-2025 ambulatory No Primary Car e Physician Facility:[facility] Start: 03-03-2025 End: 03-03-2025 ambulatory No Primary Care Physician -[facility] Start: 03-03-2025 End: 03-03-2025 Patient encounter procedure Clari Garcia PA -[facility] Work Phone: Start: 03-03-2025 End: 03-03-2025 ambulatory Clari RIVERO Facility:[facility] Start: 02-22-2025 Non-patient / Non-visit Dr. Stevo ennis MD -[facility] Start: 02-22-2025 End: 02-22-2025 ambulatory No Primary Care Physician [facility] Work Phone: Start: 02-22-2025 End: 02-22-2025 Patient encounter procedure Sapna RIVERO -[facility] Work Phone: Start: 12-16-2024 End: 12-16-2024 Patient encounter procedure Sapna RIVERO -[facility] Work Phone: Start: 12-16-2024 End: 12-16-2024 ambulatory No Primary Care Physician Facility:[facility] Start: 12-01-2024 End: 12-01-2024 Emergency department patient visit No Primary Care Physician -Emergency Department Work Phone: Start: 11-29-2024 End: 11-29-2024 Emergency department patient visit No Primary Care Physician -Emergency Department Work Phone: Start: 11-29-2024 End: 11-29-2024 Telephone encounter [facility] Start: 11-19-2024 End: 11-19-2024 Patient encounter procedure Blaine Drake APRN.ROBOTICS MECHANIC Work Phone: [facility] Comment on above: Acute pain of right knee (Primary Dx) Start: 11-19-2024 End: 11-19-2024 ambulatory [facility] Facility:[facility] Start: 11-19-2024 End: 11-19-2024 Subsequent hospital visit by physician Xr [facility] Work Phone: Radiology Comment on above: Acute pain of right knee [M25.561] Start: 10-15-2024 End: 10-15-2024 ambulatory [facility] Facility:[facility] Start: 10-15-2024 End: 10-15-2024 Patient encounter procedure Emily Dunne APRN.ROBOTICS MECHANIC Work Phone: [facility] Comment on above: URI with cough and c ongestion (Primary Dx); Fever, unspecified fever cause; Influenza A Start: 06-07-2024 End: 06-07-2024 Telephone encounter No Pcp PRODUCTION DISPATCHER [facility] Comment on above: Consult Start: 05-26-2024 End: 05-26-2024 ambulatory [facility] Start: 05-26-2024 End: 05-26-2024 Patient encounter procedure Blaine Drake APRN.ROBOTICS MECHANIC Work Phone: [facility] Comment on above: Skin mass (Primary D x) Start: 02-10-2023 Non-patient / Non-visit No [facility] Phys[facility] Start: 02-10-2023 End: 02-10-2023 Admission to same day surgery center No Primary Care Physician [facility]-Endoscopy Start: 02-10-2023 End: 02-10-2023 ambulatory No Primary Care Physician [facility] Work Phone: Start: 12-24-2022 Non-patient / Non-visit No Zahra stephenson Care Physician [facility] Start: 12-15-2022 End: 12-15-2022 ambulatory No Primary Care Physician [facility] Work Phone: Start: 12-15-2022 End: 12-15-2022 Patient encounter procedure No Primary Care Physician [facility] Start: 12-12-2022 Non-patient / Non-visit No Zahra stephenson Care Physician [facility] Start: 11-28-2022 End: 11-28-2022 ambulatory No Primary Care Physician [facility] Work Phone: Start: 11-28-2022 End: 11-28-2022 Patient encounter procedure No Primary Care Physician [facility]-Laboratory Start: 11-26-2022 Non-patient / Non-visit No Zahra stephenson Care Physician [facility] Start: 11-18-2022 Non-patient / Non-visit No Zahra stephenson Care Physician [facility] Start: 11-18-2022 End: 11-18-2022 ambulatory No Primary Care Physician [facility] Work Phone: Start: 11-18-2022 End: 11-18-2022 Patient encounter procedure No Primary Care Physician [facility]-Cardi[facility] Services Start: 11-05-2022 End: 11-05-2022 Patient encounter procedure No Primary Care Physician [facility] Start: 10-16-2022 Non-patient / Non-visit No Zhara stephenson Care Physician [facility] Procedures Date Procedure Procedure Detail Performing Clinician Start: 03-03-2025 CT angiography of co ronary arteries No Primary Care Physician Start: 11-19-2024 Radiologic examinati on knee 3 views Blaine Drake APRN.CNP Work Phone: Start: 10-15-2024 INFLUENZA A&B MOLECU LAR (POC) Emily Dunne APRN.ROBOTICS MECHANIC Work Phone: Start: 02-10-2023 Colonoscopy No Primary Care Physician Start: 12-15-2022 CT angiography of co ronary arteries No Primary Care Physician Start: 09-11-2020 Lipid 1996 panel - S marychuy or Plasma Blaine Drake PRODUCTION DISPATCHER.ROBOTICS MECHANIC Work Phone: Plan of Treatment Date Care Activity Detail Author Start: 09-11-2025 Lipid panel Lipid Screening [facility] Start: 12-01-2024 [facility] Start: 11-29-2024 [facility] Start: 11-25-2024 End: 11-25-2024 Patient encounter procedure 11/25/2024 11:30 AM EDT Office Visit [facility] [address] [place], [place] [id number] Prasanna Driscoll V, DO [address] [place], [place] [id number] Acute pain of right knee [M25.561] [facility] Comment on above: Acute pain of right knee [M25.561] Start: 05-08-2024 Covid-19 Vaccine ( season) Covid-19 Vaccine ( season) [facility] Start: 05-08-2024 Covid-19 Vaccine ( season) Covid-19 Vaccine ( season) [facility] Start: 05-08-2024 Influenza vaccination Influenza Vacc ine (#1) [facility] Start: 02-10-2023 Patient discharge [facility] Start: 10-27-2021 Diabetes Screening Diabetes Screenin g [facility] Start: 2021 Screening for malign ant neoplasm of colon [facility] Start: 11-03-2018 Urine microalbumin profile DTaP,Tdap,Td Vaccine (2 - Td or Tdap) [facility] Start: 10-31-2000 Hepatitis B Vaccine (3 of 3 - 19+ 3-dose series) Hepatitis B Vaccine (3 of 3 - 19+ 3-dose series) [facility] Start: 1994 Anxiety Screening Anxiety Screening [facility] Start: 1994 Depression Screening Depression Scre randall [facility] Start: 1994 Hepatitis C screening Hepatitis C Sc jabierhieu [facility] Start: 1994 HIV screening HIV Screening [facility] Colonoscopy [facility] angiography of coronary arteries [facility] Patient Education [facility] Work Phone: Patient referral [facility] Work Phone: US.doppler Lower extremity vein [facility] Immunizations Immunization Date Immunization Notes Care Provider Fa cility 08-07-2020 influenza, injectabl e, quadrivalent, contains preservative Blaine Vidal PRODUCTION DISPATCHER.ROBOTICS MECHANIC Work Phone: [facility] 08-07-2020 influenza virus vacc ine, unspecified formulation Blaine Vidal PRODUCTION DISPATCHER.ROBOTICS MECHANIC Work Phone: [facility] 11-03-2008 tetanus toxoid, redu claire diphtheria toxoid, and acellular pertussis vaccine, adsorbed Blaine Vidal PRODUCTION DISPATCHER.ROBOTICS MECHANIC Work Phone: [facility] 07-31-2000 hepatitis B vaccine, adult dosage Blaine Vidal PRODUCTION DISPATCHER.ROBOTICS MECHANIC Work Phone: [facility] 04-30-2000 hepatitis B vaccine, adult dosage Blaine Vidal PRODUCTION DISPATCHER.ROBOTICS MECHANIC Work Phone: [facility] 04-30-2000 poliovirus vaccine, inactivated Blaine Vidal PRODUCTION DISPATCHER.ROBOTICS MECHANIC Work Phone: [facility] Payers Date Payer Category Payer Unknown [id number] 2024 Self-pay 2022 [facility] [id number] 2022 Unknown [employer] PPO [id number] 2022-Present [phone] [address] [place] [address] PPO [id number] 2022 Unknown [id number] Private Health Insurance [id number] Unknown [facility] PACKAGE PLAN 0 [id number] Unknown [id number] Unknown [id number] Unknown [id number] Unknown [id number] Unknown [id number] Unknown [id number] Unknown [id number] Unknown [id number] Unknown [id number] Unknown [id number] Social History Date Type Detail Facility Start: 11-05-2022 End: 02-05-2023 Tobacco smoking status NHIS Unknown if ever smoked [facility] Start: 1975 Sex Assigned At Male W [facility] Start: 05-26-2024 End: 12-01-2024 Tobacco smoking status NHIS Never smoked tobacco [facility] Start: 05-26-2024 Tobacco use and exposure Smokeless tobacco non-user [facility] Start: 05-26-2024 End: 10-15-2024 Alcoholic beverage intake Current drinker of alcohol (finding) [facility] Start: 08-15-2020 End: 05-26-2024 Alcoholic beverage intake [facility] Start: 08-15-2020 End: 05-26-2024 Tobacco use panel [facility] Adult Depression Screening Assessment 0 [facility] Start: 1975 Sex assigned at Not on file [facility] Start: 11-29-2024 End: 12-01-2024 Sex Male (finding) [facility] Goals Date Patient Goal Desired Activity /State Mental Status Date Assessment Result Facility 02-10-2023 Cognitive function Voice/Name [facility] Work Phone: Clinical Notes 02-10-2023 to 03-03-2025 Note Date & Type Note Facility 03-03-2025 Radiology Diagnostic study note [facility] Imaging Services [address] [place] [id number] Cardiac Only MR#: [id number] Acct: [id number] Name: ASHLYN LEE Rep #: [id number] : 1975 M 49 From: Dat Jacobo MD PCP: Care Physician,No Primary Status: REG CLI Study:Limited Chest CT Cardiac Only Date of E xam: 03/03/25 Exam# [id number] Ordering Dr: Clari Soliman PROCEDURE: LIMITED CHEST CT CARDIAC ONLY 03/03/2025 REASON FOR EXAM: SCREEN TECHNIQUE: Limited CT for coronary artery calcium scoring. One or more dose reduction techniques were used (e.g., Automated exposure control, adjustment of the mA and/or kV according to patient size, use of iterative reconstruction technique). RADIATION DOSE SUMMARY: CTDlvol: 12.19 mGy DLP: 195.04 mGycm COMPARISON: Prior study of 12/15/2022. CT/Limited Chest CT Cardiac Only IMPRESSION: Limited imaging of the lungs demonstrates no acute process. No pleural effusion or pneumothorax is seen in visualized areas. No adenopathy is noted. The visualized upper abdomen demonstrates no significant abnormality. Reading Location: [place] [address] CC: JOSEFA Faustin; No Primary Care Physician ~ Structural Mill Supervisor: Signed [facility] 12-16-2024 Evaluation note Diagnosis Onset Date Resolution Deep vein thrombosis (DVT) noneactive December 16, 2024 8:27am [facility] Work Phone: 1(300) 834-417304-11-2025 Evaluation note* Diagnosis Onset Date Resolution Status Admit Date Deep vein thrombosis (DVT) noneactiv e December 16, 2024 8:27am Deep vein thrombosis (DVT) noneactiv e February 22, 2025 8:54am [facility] Work Phone: 1(610) 421-372803-27-2025 Discharge summary [facility] Medical Records Department [address] [place] [address] Emergency Department Summary 12/01/24 MR#: [id number] Acct: [id number] Name: ASHLYN LEE Rep #:[id number] : [...] vascular surgeon and also your MRI through [facility]. Tylenol for pain. Print Language: Citizen Of [place] Disposition Disposition: Home, Self Care What to do if you have Problems For any increased pain, shortness of breath, bleeding, nausea or vomiting, chestpain, or any unexpected problems, contact your Primary Care Provider. Call [facility] ([phone]) or report tothe closest Emergency Room. Call 911 if necessary. 12/01/24 1702 Cosigner Signature (if applicable): CC: No Primary Care Physician ~ Signed [facility]03-27-2025 Discharge summary Author Erwin Meredith [facility] Note Date/Time December 01, 2024 5:0 2pm [facility] Medical Records Department [address] [place] [address] Emergency Department Summary 12/01/24 MR#: [id number] Acct: [id number] Name: ASHLYN LEE Rep #:[id number] : [...] vascular surgeon and also your MRI through [facility]. Tylenol for pain. Print Language: Citizen Of [place] Disposition Disposition: Home, Self Care What to do if you have Problems For any increased pain, shortness of breath, bleeding, nausea or vomiting, chestpain, or any unexpected problems, contact your Primary Care Provider. Call [employer] [facility] ([phone]) or report to the closest Emergency Room. Call 911 if necessary. 12/01/24 1702 <Electronically signed by Erwin Meredith MD> Cosigner Signature (if applicable): CC: No Primary Care Physician ~ Signed [facility] Work Phone: 1(336) 823-356703-25-2025 Discharge summary [facility] Medical Records Department [address] [place] [address] Emergency Department Summary 11/29/24 MR#: [id number] Acct: [id number] Name: ASHLYN LEE Rep #:[id number] : [...] that he recently took a trip to [facility] and notes that he has some [...] Patient denies any history of blood clots. [facility] Medical History Wears glasses Alcohol use Heartburn [...] following commands knew that he was at [facility] year is 2024 Skin: Warm, dry, intact [...] right calf after a recent trip to [facility]. On the differential diagnose includes but [...] - Vivien Ross MD [Med Staff - Health Information Tech] - Stevo Duarte MD [Med Staff - [...] follow-up with them as well. Print Language: Citizen Of [place] Disposition Disposition: Home, Self Care What to do if you have Problems For any increased pain, shortness of breath, bleeding, nausea or vomiting, chestpain, or any unexpected problems, contact your Primary Care Provider. Call [employer] [facility] ([phone]) or report tothe closest Emergency Room. Call 911 if necessary. 11/29/24 6497 Cosigner Signature (if applicable): CC: No Primary Care Physician ~ Signed [facility]03-25-2025 Discharge summary Author Rl Buenrostro [facility] Note Date/Time November 29, 2024 4:5 4pm [facility] Medical Records Department [address] [place] [address] Emergency Department Summary 11/29/24 MR#: [id number] Acct: [id number] Name: ASHLYN LEE Rep #:[id number] : [...] that he recently took a trip to [facility] and notes that he has some [...] Patient denies any history of blood clots. [facility] Medical History Wears glasses Alcohol use Heartburn [...] following commands knew that he was at [facility] year is 2024 Skin: Warm, dry, intact [...] right calf after a recent trip to [facility]. On the differential diagnose includes but [...] - Vivien Ross MD [Med Staff - Health Information Tech] - Stevo Duarte MD [Med Staff - [...] follow-up with them as well. Print Language: Citizen Of [place] Disposition Disposition: Home, Self Care What to do if you have Problems For any increased pain, shortness of breath, bleeding, nausea or vomiting, chestpain, or any unexpected problems, contact your Primary Care Provider. Call [employer] [facility] ([phone]) or report to the closest Emergency Room. Call 911 if necessary. 11/29/24 1654 <Electronically signed by Rl Buenrostro DO> Cosigner Signature (if applicable): CC: No Primary Care Physician ~ Signed [facility] Work Phone: [phone]) 449-821603-25-2025 Telephone encounter Note* Telephone Encounter - Geri Scott PSS - 11/29/2024 1:23 PM EDT CD READY FOR CORRECTIONAL COUNSELOR/CASE MANAGER AT [facility]03-25-2025 Miscellaneous Notes* Telephone Encounter - Geri Scott PSS - 11/29/2024 1:23 PM EDT CD READY FOR CORRECTIONAL COUNSELOR/CASE MANAGER AT [facility] * Telephone Encounter - Clari Estevez - 11/29/2024 12:15 PM EDT Patient would like to pick up worker CD of x-ray done on 11/19/24. documented in [facility] Telephone encounter Note * Telephone Encounter - Clari Estevez - 11/29/2024 12:15 PM EDT Patient would like to pick up worker CD of x-ray done on 11/19/24. [facility]03-[facility]25 NoteHNO ID: [id number] Author: BLAINE DRAKE APRN.ROBOTICS MECHANIC Service: ? Author Type: Nurse Practitioner Type: Progress Notes Filed: 11/19/2024 13:37 Note Text: [facility] Subjective Bertrand Lee is [...] MD - CONSULT TO ORTHOPAEDICS Blaine Drake APRN.ROBOTICS MECHANIC [facility] History of Present illness Narrative* Blaine Drake APRN.JARAD - 11/19/2024 12:23 PM EDT Images from [...] Drake APRN.JARAD MDM Procedures documented in this encounterK[facility]25 History of Present illness Narrative* Ray Riley [...] PATIENT PRESENTS WITH AN IMPLANTABLE OR ATTACHED BICYCLE REPAIRER: No RADIOLOGY DEPARTMENT: General X-ray: Exam(s) Completed: Lower Extremity X- Ray(s): Knee, AP / Lat / Merchant Right PERIPHERAL IV DATA: Not applicable SIGNED BY: RT Ilya(R) November 19, 2024 12:34 PM documented in this encounterK[facility]03-15-2025 NoteHNO ID: [id number] Author: RAY RILEY RT(R) Service: ? Author [...] PATIENT PRESENTS WITH AN IMPLANTABLE OR ATTACHED BICYCLE REPAIRER: No RADIOLOGY DEPARTMENT: General X-ray: Exam(s) Completed: Lower Extremity X-Ray(s): Knee, AP / Lat / Merchant Right PERIPHERAL IV DATA: Not applicable SIGNED BY: RT Ilya(R) November 19, 2024 12:34 [facility]02-08-2025 NoteHNO ID: [id number] Author: EMILY DUNNE APRN.ROBOTICS MECHANIC Service: ? Author Type: Nurse Practitioner Type: Progress Notes Filed: 10/15/2024 10:15 Note Text: This note was created using [employer]riter. Subjective Bertrand Lee is a 49 year [...] - OSELTAMIVIR 75 MG CAPSULE Emily Dunne APRN.[facility]02-08-2025 History of Present illness Narrative* Emily Dunne APRN.[facility] - 10/15/2024 10:00 AM EST This note was created using [employer]. Subjective Bertrand Lee is a 49 year [...] - OSELTAMIVIR 75 MG CAPSULE Emily Dunne APRN.ROBOTICS MECHANIC documented in this encounterK[facility]10-01-2024 Telephone encounter Note * Telephone Encounter - Rachel Golden LPN - 06/07/2024 4:16 PM EDT Pt calls to report he was seen in on 05/26/24 and referred to [facility]. Pt is requesting order be faxed to: [phone]. Order faxed as requested. Rachel Golden LPN [facility]10-01-[facility]24 Miscellaneous Notes* Telephone Encounter - Rachel Golden LPN - 06/07/2024 4:16 PM EDT Pt calls to report he was seen in on 05/26/24 and referred to [facility]. Pt is requesting order be faxed to: [phone]. Order faxed as requested. Rachel Golden LPN documented in this encounterK[facility]09-19-2024 NoteHNO ID: [id number] Author: BLAINE DRAKE APRN.ROBOTICS MECHANIC Service: ? Author Type: Nurse Practitioner Type: [...] 782.2, ICD10: R22.9 Refer to dermatology Call [facility] for appointment. - CONSULT TO DERMATOLOGY Blaine Darke APRN.CNPCincinnati [facility] Center09-19-2024 History of Present illness Narrative* Blaine Drake APRN.JARAD - 05/26/2024 3:06 PM EDT Images from [...] 782.2, ICD10: R22.9 Refer to dermatology Call [facility] for appointment. - CONSULT TO DERMATOLOGY Blaine Drake APRN.CNP documented in this encounterK[facility]06-06-2023 [facility] Diagnosis Onset Date Resolution Status Chest pain acute [facility] Work Phone: Evaluation note* Diagnosis Onset Date Resolution Status Chest pain acute Encounter for screening for malignant neoplasm of colo n acute [facility] Work Phone: Evaluation note* Diagnosis Skin mass- Primary Localized superficial swelling, mass, or lump documented in this encounter [facility]* Diagnosis URI with cough and congestion- Primary Fever, unspecified fever cause Influenza A Influenza with other respiratory manifestations documented in this encounter [facility] note* Diagnosis Acute pain of right knee- Primary documented in this encounter [facility] noteNo assessment information availableWMercy Health [facility] Work Phone: History and physical note Author Jus Schaeffer [facility] February 10, 2023 1:45pm Note Date/Time February 10, 2023 1:45p m [facility] Medical Records Department [address] [place] [id number] History & Physical Exam 02/10/23 1344 MR#: [id number] Acct: [id number] Name: ASHLYN LEE Rep #:[id number] : 1975 47 From: Jus Schaeffer DO PCP: Care Physician,No Primary Status :[facility] Location: [place] [address] HPI - General General Date of Admission: [...] history of colon cancer or colon polyps. ON LICENSE OF [facility] Medical History Alcohol use Cardiology [...] will have an ASA of 2. 02/10/23 1345 <Electronically signed by Jus Schaeffer DO> Cosigner Signature (if applicable): CC: No Primary Care Physician; Jus Schaeffer DO~ Signed [facility] Work Phone: Hospital Discharge instructions Additional [...] 1. He should follow-up with them as well.[facility] Work Phone: Hospital Discharge instructions Additional [...] vascular surgeon and also your MRI through [facility]. Tylenol for pain.[facility] Work Phone: Reason for referral (narrative)No reason for referral information availableWooProMedica Fost[facility] Work Phone: Reason for visit Narrative* Diagnostic Procedure Only (Urgent) - Closed Specialty Diagnoses / Procedures Referred By Contac t Referred To Contact XR IMAGING Diagnoses Acute pain of left knee Procedures XR KNEE POST OP 3V AP/LAT/MERCHANT LEFT RADIOLOGIC EXAMINATION KNEE 3 VIEWS Blaine Drake, PRODUCTION DISPATCHER.ROBOTICS MECHANIC [address] [facility] [place] [address] Phone: tel: fax: [place] [phone] Referral ID Status Reason Start Date Expiration Date V isits Requested Visits Authorized [id number] Closed Auto-Generate d Referral 11/19/2024 12/19/2025 1 1 [facility] Chief Complaint and Reason for Visit Chief [...] Admit Date Deep vein thrombosis (DVT) December 16 8:27am Chief Complaint Admit Date DVT R/O November 29, 2024 4:1 0pm RLE PAIN/SWELLING November 29, 2024 4:2 7pm LOWER EXT December 01, 2024 3:0 3pm Deep vein thrombosis December 16, 2024 8: 27am M79.89 Other specified soft tissue disor ders February 22, 2025 7:58am 3 M FU February 22, 2025 8:54 am Family history of ischemic heart disease and other March 03, 2025 6:53am Reason for Visit Admit Date Deep vein thrombosis (DVT) December 16, 025 8:27am Deep vein thrombosis (DVT) February 22 8:54am Family History No Family History Records Found Relationship Condition Age at Onset Recorded Date/T kwame father Coronary artery disease Unknown Hyperlipidemia Unknown grandfather Myocardial infarction Unknown grandmother Myocardial infarction Unknown Advance Directives No Advanced Directives Records Found Advance Directive Response Recorded Date/ Time Name of Medical Power of Director Transportation February 05, 2023 9:25am Living Will Yes February 05, 2023 9 :25am Power of Director Transportation Yes February 05, 2023 9:25am Advance Directive Response Recorded Date/ Time Living Will Yes November 29, 2024 4:42pm Do you have a Healthcare Power of Director Transportation? Yes November 29, 2024 4:42pm Name of Medical Power of Director Transportation Patricia November 29, 2024 4:42pm Advance Directive Response Recorded Date/ Time Living Will Yes November 29, 2024 4:42pm Do you have a Healthcare Power of Director Transportation? Yes November 29, 2024 4:42pm Name of Medical Power of Director Transportation Patricia November 29, 2024 4:42pm Living Will No December 01, 2024 4:35pm Do you have a Healthcare Power of Director Transportation? No December 01, 2024 4:35pm Reason for Referral Specialty Diagnoses / Procedures Referred By Shabnam reyes Referred To Contact Dermatology Diagnoses Skin mass Procedures CONSULT TO DERMATOLOGY Blaine Drake APRN.ROBOTICS MECHANIC [address] [place] [address] Referral ID Status Reason Start Date Expiration Date Visits Requested Visits Authorized [id number] Ref Not Required PCP Requested Referral 05/26/2024 [...] February 22, 2025 End: February 22, 2025 Team Status: Active Member Role/Relationship Status Dates No Primary Care Physician Primary Care Provider Active Team Status: Inactive Member Role/Relationship Status Dates No Primary Care Physician Primary Care Provider Active Start: November 29, 2024 End: November 29, 2024 Dr. Rl Buenrostro DO Attending Provider Active Start: November 29, 2024 End: November 29, 2024 Dr. Rl Buenrostro DO Emergency Provider Active Start: November 29, 2024 End: November 29, 2024 Team Status: Active Member Role/Relationship Status Dates Dr. Hemant Newman MD Attending Provider Active Start: November 29, 2024 Dr. Rl Buenrostro DO Referring Provider Active Start: November 29, 2024 Team Status: Inactive Member Role/Relationship Status Dates No Primary Care Physician Primary Care Provider Active Start: December 01, 2024 End: December 01, 2024 Dr. Erwin Meredith MD Attending Provider Active S tart: December 01, 2024 End: December 01, 2024 Dr. Erwin Meredith MD Emergency Provider Active S tart: December 01, 2024 End: December 01, 2024 Team Status: Inactive Member Role/Relationship Status Dates No Primary Care Physician Primary Care Provider Active Start: December 16, 2024 End: December 16, 2024 No Primary Care Physician Referring Provider Active Start: December 16, 2024 End: December 16, 2024 JOSEFA Platt Attending Provider Active Star t: December 16, 2024 End: December 16, 2024 Team Status: Active Member Role/Relationship Status Dates No Primary Care Physician Primary Care Provider Active Start: February 22, 2025 JOSEFA Platt Attending Provider Active Star t: February 22, 2025 JOSEFA Platt Referring Provider Active Star t: February 22, 2025 Team Status: Active Member Role/Relationship Status Dates No Primary Care Physician Primary Care Provider Active Start: February 22, 2025 Dr. Stevo Duarte MD Attending Provider Active S tart: February 22, 2025 JOSEFA Platt Referring Provider Active Star t: February 22, 2025 Team Status: Inactive Member Role/Relationship Status Dates No Primary Care Physician Primary Care Provider Active Start: February 22, 2025 End: February 22, 2025 No Primary Care Physician Referring Provider Active Start: February 22, 2025 End: February 22, 2025 JOSEFA Platt Attending Provider Active Star t: February 22, 2025 End: February 22, 2025 Team Status: Inactive Member Role/Relationship Status Dates No Primary Care Physician Primary Care Provider Active Start: March 03, 2025 End: March 03, 2025 JOSEFA Ritter Attending Provider Active Start: March 03, 2025 End: March 03, 2025 JOSEFA Ritter Referring Provider Active Start: March 03, 2025 End: March 03, 2025 Goals (unrecognized section and content) Goals [...] or prosecute any alcohol or drug abuse patient.[facility] CampusIn the event this information is protected by the Federal Confidentiality of Alcohol and Drug Abuse Patient Records regulations: The Federal rules restrict any use of the information to criminally investigate or prosecute any alcohol or drug abuse patient.[facility] CampusIn the event this information is protected by the Federal Confidentiality of Alcohol and Drug Abuse Patient Records regulations: The Federal rules restrict any use of the information to criminally investigate or prosecute any alcohol or drug abuse patient.[facility] CampusIn the event this information is protected by the Federal Confidentiality of Alcohol and Drug Abuse Patient Records regulations: The Federal rules restrict any use of the information to criminally investigate or prosecute any alcohol or drug abuse patient.[facility] CampusIn the event this information is protected by the Federal Confidentiality of Alcohol and Drug Abuse Patient Records regulations: The Federal rules restrict any use of the information to criminally investigate or prosecute any alcohol or drug abuse patient.[facility] CampusIn the event this information is protected by the Federal Confidentiality of Alcohol and Drug Abuse Patient Records regulations: The Federal rules restrict any use of the information to criminally investigate or prosecute any alcohol or drug abuse patient.[facility] Reason for Visit (unrecogniz ed section and [...] section and content) DATE CREATED AUTHOR 11/30/2024 [facility] DATE CREATED AUTHOR AUTHOR'S ORGANHUNG ATION 04/05/2025 [facility] FOR RECORDS PERTAINING TO PATIENTS WHO [...] BE BASED ON THE PRIMARY CLINICAL RECORDS. [employer] provides no warranty or guarantee of the accuracy or completeness of information in this document.
--- OUTSIDE RECORDS SUMMARY | 2025-04-17 15:27 | XMS RPT_ITS | CCD ---
Author Organization [facility] Care Team Providers Care Copy Center Specialist Name Role Phone Amanda Avalos Attending Provider UnavailDr. Jerome Wynn Attending Provider [phone] Care Physician, No Primary Referring Provider Un available Care Physician, No Primary Primary Care Provider Unavailable Dr. Jerome Garcia Referring Provider [phone] Jerome Garcia Other Provider Yun Bazan Attending Provider Unavailable Rachel Drake Attending Provider Unavailable Dr. Jus Schaeffer Attending Provider [phone] FriendDr. Luu Other Provider [phone] Unavailable Primary Care Provider UnavailBLAINE Dinh Referring Unavailable Care Physician, No Primary Primary Care Provider Unavailable Dr. Rl Buenrostro DO Emergency Provider Dr. Erwin Meredith MD Emergency Provider Dr. Rl Buenrostro DO Attending Provider Dr. Hemant Newman MD Attending Provider Dr. Rl Buenrostro DO Referring Provider Dr. Erwin Meredith MD Attending Provider [phone] Care Physician, No Primary Referring Provider Un available Sapna Paniagua Attending Provider [phone] Sapna Paniagua Referring Provider [phone] Stevo Duarte MD Attending Provider [phone] Clari Osman Attending Provider [phone] Clari Osman Referring Provider [phone] Care Physician, No Primary Primary Care Unava [...] Facility Coronary Angiography CTon Coronary Angiography CT [facility] Imaging Services [address] [place] [address] 03/07/25 170 MR#: [id number] Acct: [id number] Name: ASHLYN LEE Rep #: [id number] : 1975 49 From: Jerome Garcia MD [...] Date CC: Dr. Jerome Garcia MD; JOSEFA Fautsin; No Primary Care Physician Signed Normal [facility] Limited Chest CT Cardiac Onl yon 03-03-[address] Cardiac Only [facility] Imaging Services [address] [place] [id number] Cardiac Only MR#: [id number] Acct: [id number] Name: ASHLYN LEE Rep #: [id number] : 1975 M 49 From: Alexei Gonzalez PCP: Care Physician,No Primary Status: [facility] Study: Limited Chest CT Cardiac Only Date of Exam: Exam# [id number] Ordering Dr: Clari Garcia PROCEDURE: LIMITED CHEST [...] abdomen demonstrates no significant abnormality. Reading Location: [place] [address] CC: JOSEFA Faustin; No Primary Care Physician Field Reimbursement Manager: Signed Normal [facility] MR/BMS.Toyin 02-22-2025 MR/BMS.BVS [facility] Vascular Surgery [address] [place] [address] OFFICE VISIT Date of Service: 02/22/25 MR#: [id number] Acct: [id number] Name: ASHLYN LEE Rep #: [id number] : 1975 Provider: JOSEFA Platt Age/Sex: 49/M Location: [facility] Status: Signed Intake Vital Signs 12/01/24 15:04 [...] R ACL reconstruction with Dr. Sullivan at [facility] on 03/14/2025 and needs clearance/anticoagul ation [...] EOM intact (more content not included)... Normal [facility] Venous Duplex US, Unilateral on 02-22-2025 Venous Duplex US, Unilateral [facility] Cardiovascular Services [address] [place] [address] Venous Duplex US, Unilateral 02/22/25 0811 MR#: [id number] Acct: [id number] Name: ASHLYN LEE Rep #: [id number] : 1975 49 From: Stevo Duarte MD [...] Dictated: 02/22/25 0811 Date Transcribed: 02/27/25 143 Field Reimbursement Manager: Signed [facility] MR/BMS.Rob 12-16-2024 MR/BMS.S [facility] Vascular Surgery [address] [place] [address] OFFICE VISIT Date of Service: 12/16/24 MR#: [id number] Acct: [id number] Name: ASHLYN LEE Rep #: [id number] : 1975 Provider: JOSEFA Platt Age/Sex: 49/M Location: [facility] Status: Signed Intake Vital Signs 11/29/24 [...] days later went on a trip to [facility], used crutches while there. While there, he [...] No gallbladder problem and No black,tarry stools [place] Hematologic: Yes blood thinners, No blood disorders, [...] coordination, N (more content not included)... Normal [facility] Emergency Department Summary on 12-01-2024 Emergency Department Summary [facility] Medical Records Department [address] [place] [address] Emergency Department Summary 12/01/24 MR#: [id number] Acct: [id number] Name: ASHLYN LEE Rep #: [id number] : 1975 49 From: Erwin Meredith MD [...] L Respi (more content not included)... Normal [facility] BERTRAND [facility]EE ([id number]) 1975 M Date Time Provider Department 11/29/24 SELF PEDSWS During your visit today, we recorded the following information about you: Clari Estevez 11/29/2024 12:16 PM Signed Patient would like to picker tender helper CD of x-ray done on 11/19/24. Geri Scott PSS 11/29/2024 1:23 PM Signed CD READY FOR REROLLER HAND AT [facility] RADIOLOGY Allergies As of Date: 11/29/2024 (No Known Allergies) Date Reviewed: 11/19/2024 Reviewed by: Shae Sharp MA - Fully Assessed Problem List As Of Date: 11/29/2024 (None) Encounter Status:Closed by CLARI ESTEVEZ on 11/29/24 Normal [facility] Emergency Department Summary on 11-29-2024 Emergency Department Summary [facility] Medical Records Department [address] [place] [address] Emergency Department Summary 11/29/24 MR#: [id number] Acct: [id number] Name: ASHLYN LEE Rep #: [id number] : 1975 49 From: Rl Buenrostro DO [...] that he recently took a trip to [facility] and notes that he has some pain [...] Patient denies any history of blood clots. [facility] Medical History Wears glasses Alcohol use [...] following commands knew that he was at [facility] year is 2024 Skin: Warm, dry, intact [...] right calf after a recent trip to [facility]. On the differential diagnose includes but not [...] Provider: Leeanna (more content not included)... Normal [facility] Venous Duplex US, Unilateral on 11-29-2024 Venous Duplex US, Unilateral [facility] Cardiovascular Services [address] [place] [address] Venous Duplex US, Unilateral 11/29/24 1627 MR#: [id number] Acct: [id number] Name: ASHLYN LEE Rep #: [id number] : 1975 49 From: Hemant Newman MD [...] Physician Date Dictated: 11/29/241626 Date Transcribed: 11/29/241955 Field Reimbursement Manager: [facility] 11-19-2024 [facility] Office Visit (UCTR) BERTRAND LEE ([id number]) 1975 M Date Time Provider Department 11/19/24 12:00 PM BLAINE DRAKE [facility] During your visit today, [...] MD - CONSULT TO ORTHOPAEDICS Blaine Drake APRN.DISASSEMBLER [facility] Procedures Allergies As of Date: 11/19/2024 (No Known Allergies) Date Reviewed: 11/19/2024 Reviewed by: Shae Sharp MA - Fully Assessed Reason for Visit: Knee Pain [132] Cmt: right x 2 hours, denies injury Primary Visit Diagnosis:Acute pain of right knee [M25.561] Order(s):XR KNEE POST OP 3V AP/LAT/MERCHANT RIGHT [7826915] Order #: [id number]. #:[id number] CONSULT TO ORTHOPAEDICS [9026] Order #: [id number]: 1 FUTURE Problem List As Of Date: 11/19/2024 (None) Encounter Status:Closed by BLAINE DRAKE on 11/19/24 [facility] XR KNEE 3V AP/LAT/MERCHANT R Ton [...] Mild degenerative changes in the right knee. Field Reimbursement Manager: PSCB Transcribe Date/Time: Nov 19 2024 1:16P Dictated by : KARON MA MD This examination was interpreted and the report reviewed and electronically signed by: KARON MA MD on Nov 19 2024 1:17PM EST [id number] Normal [facility] XR Knee AP and Lateral and M car 11-19-2024 IMPRESSION: Mild degenerative changes in the right knee. Field Reimbursement Manager: BETHEL Transcribe Date/Time: Nov 19 2024 1:16P [...] soft tissue swelling. DIVISION OF RADIOLOGY Provider, [facility] - 11/19/2024 * * *Final Report* * [...] Mild degenerative changes in the right knee. Field Reimbursement Manager: BETHEL Transcribe Date/Time: Nov 19 2024 1:16P Dictated by : KARON MA MD This examination was interpreted and the report reviewed and electronically signed by: KARON MA MD on Nov 19 2024 1:17PM EST [facility] Radiology Study observation (narrative) [facility] XR Knee AP and Lateral and M erchantsOrdered By: Ccf Provider on 11-19-2024 [facility] CNOVon 10-15-2024 CNOV Office Visit (UCWSTR) TOMYBERTRAND ([id number]) 1975 M Date Time Provider Department 10/15/24 10:15 AM EMILY DUNNE [facility] During your visit today, we recorded the following information about you: Temperature Pulse Respiration Blood pressure 99.8 degrees 94/minute 20/minute 122/94 Weight 70 kg Emily Dunne APRN.DISASSEMBLER 10/15/2024 10:15 AM Signed This note was created using Sartater. Subjective Bertrand Lee is a 49 year [...] - OSELTAMIVIR 75 MG CAPSULE Emily Dunne APRN.DISASSEMBLER Allergies As of Date: 10/15/2024 (No Known Allergies) Date Reviewed: 10/15/2024 Reviewed by: Martita Leslie LPN - Fully Assessed Reason for Visit: Fever [47] Cmt: Body aches, nasal congestion, headache x 36 hours Primary Visit Diagnosis:URI with cough and congestion [J06.9] Other Visit Diagnoses:Fever, unspecified fever cause [R50.9] Influenza A [J10.1] Order(s):INFLUENZA AANDB MOLECULAR (POC) [4312559] Order #: [id number]. #:[id number] oseltamivir (TAMIFLU) 75 mg capsuleTake 1 capsule [...] for Encounter Date Provider Department Center 10/15/2024 [id number]-SNAWETEMILY DUNNE [facility] Encounter Status:Closed by EMILY DUNNE on 10/15/24 [facility] INFLUENZA A&B MOLECULAR (POC )on 10-15-2024 Flu A (POCT) Positive Abnormal Negative [facility] Comment on above: Location: [place], [address] [facility], [place], [address] Interpretation and review of laboratory results Abnormal [facility] Procedural Control Valid [facility] Location: [place], [address] [facility], [place], [address] [facility] POINT OF CARE [facility] CNPNon 06-07-2024 CNPN Telephone (FAMPWS) BERTRAND LEE ([id number]) 1975 M Date Time Provider Department 06/07/24 NO PCP FAMPWS During your visit today, we recorded the following information about you: Rachel Golden LPN 06/07/2024 4:18 PM Signed Pt calls to report he was seen in on 05/26/24 and referred to [facility]. Pt is requesting order be faxed to: [phone]. Order faxed as requested. Rachel Golden LPN Allergies As of Date: 06/07/2024 (No Known Allergies) Date Reviewed: 05/26/2024 Reviewed by: Mary Beth Edwards MA - Fully Assessed Reason for Visit: Consult [502] Problem List As Of Date: 06/07/2024 (None) Encounter Status:Closed by RACHEL GOLDEN on 06/07/24 Normal [facility] CNOVon 05-26-2024 CNOV Office Visit (UCWSTR) BERTRAND LEE ([id number]) 1975 M Date Time Provider Department 05/26/24 2:45 PM BLAINE DRAKE [facility] During your visit today, we recorded the following information about you: Temperature Pulse Respiration Blood pressure 98.2 degrees 64/minute 16/minute 124/86 Weight 72.2 kg Blaine Drake APRN.DISASSEMBLER 05/26/2024 3:09 PM Signed Subjective HPI HPI [...] 782.2, ICD10: R22.9 Refer to dermatology Call [facility] Dermatology for appointment. - CONSULT TO DERMATOLOGY Blaine Drake APRN.DISASSEMBLER Allergies As of Date: 05/26/2024 (No Known Allergies) Date Reviewed: 05/26/2024 Reviewed by: Mayr Beth Edwards MA - Fully Assessed Reason for Visit: Lump [90164] Cmt: On RIGHT lower leg/ calf area Primary Visit Diagnosis:Skin mass [R22.9] Order(s):CONSULT TO DERMATOLOGY [9006] Order #: [id number]: 1 FUTURE Problem List As Of Date: 05/26/2024 (None) Encounter Status:Closed by BLAINE DRAKE on 05/26/24 Normal [facility] Sims Basophil percentageOrdered B y: Dr. Garcia on 11-28-2022 Bilirubin [Mass/Vol] 0.70 mg/dL 0.20-1.00 [facility] Comment on above: For patients on eltr ombopag therapy, use of Dimension Hensel TBIL is not recommended. Cholesterol [Mass/Vol] 208 mg/dL <200 [facility] Comment on above: <200 mg/dL Desirable 200-240 mg/dL Borderline >240 mg/dL High Risk Protein [Mass/Vol] 7.4 g/dL 6.4-8.2 [facility] Triglyceride [Mass/Vol] 50 mg/dL <199 [facility] Comment on above: The drugs N-Acetylcy steine and Metamizole may falsely depress this assay.Serum Triglycerides Reference Interval Normal <150 mg/dL Borderline high 150 - 199 mg/dL High 200 - 499 mg/dL Very High > or = 500 mg/dL Direct bilirubinOrdered By: Dr. Garcia on 11-28-2022 Bilirubin.direct [Mass/Vol] 0.19 mg/dL 0.00-0.30 [facility] Laboratory - Chemistry and C hemistry - challengeOrdered By: Dr. Garcia on 11-28-2022 ALP [Catalytic activity/Vol] 60 U/L 45-117 [facility] ALT [Catalytic activity/Vol] 25 U/L 16-61 [facility] Globulin (S) [Mass/Vol] 3.2 g/dL 2.2-4.2 [facility] Serum or plasma albumin rafia urement (mass/volume)Ordered By: Dr. Garcia on 11-28-2022 Albumin [Mass/Vol] 4.2 g/dL 3.2-5.0 [facility] Serum or plasma cholesterol in HDL measurement (mass/volume)Ordered By: Dr. Garcia on 11-28-2022 Cholesterol in HDL [Mass/Vol] 80 mg/dL >40 [facility] Comment on above: The drugs N-Acetylcy steine and Metamizole may falsely depress this assay. Reference Range HDL <40 mg/dL Low HDL Cholesterol HDL >or= 60 mg/dL High HDL Cholesterol Serum or plasma cholesterol in VLDL measurement (mass/volume)Ordered By: Dr. Garcia on 11-28-2022 Cholesterol in VLDL [Mass/Vol] 10 mg/dL 5-40 [facility] Serum or plasma low density lipoprotein (LDL) cholesterol measurement (mass/volume)Ordered By: Dr. Garcia on 11-28-2022 Cholesterol in LDL [Mass/Vol] 118 mg/dL 0-130 [facility] Thin prep Papanicolaou smear with manual screeningOrdered By: Dr. Garcia on 11-28-2022 Thin prep Papanicolaou smear with manual screening 28 U/L 15-37 [facility] Vital Signs Date Time Vital Sign Value Performing Clinician Facility 02-22-2025 09:05-0400 Body temperature 98 [degF] No Primary Care Physician [facility] 02-22-2025 09:05-0400 Body weight 71.66 kg No Primary Care Physician [facility] 02-22-2025 09:05-0400 Diastolic blood pressure 76 mm[Hg] No Primary Care Physician [facility] 02-22-2025 09:05-0400 Heart rate 73 /min No Primary Care Physician [facility] 02-22-2025 09:05-0400 Respiratory rate 16 /min No Primary Care Physician [facility] 02-22-2025 09:05-0400 SaO2% (BldA) [Mass fraction] 97 % No Primary Care Physician [facility] 02-22-2025 09:05-0400 Systolic blood pressure 108 mm[Hg] No Primary Care Physician [facility] 12-16-2024 08:42-0400 Body temperature 98 [degF] No Primary Care Physician [facility] 12-16-2024 08:42-0400 Body weight 68.49 kg No Primary Care Physician [facility] 12-16-2024 08:42-0400 Diastolic blood pressure 73 mm[Hg] No Primary Care Physician [facility] 12-16-2024 08:42-0400 Heart rate 63 /min No Primary Care Physician [facility] 12-16-2024 08:42-0400 Respiratory rate 16 /min No Primary Care Physician [facility] 12-16-2024 08:42-0400 SaO2% (BldA) [Mass fraction] 99 % No Primary Care Physician [facility] 12-16-2024 08:42-0400 Systolic blood pressure 111 mm[Hg] No Primary Care Physician [facility] 12-01-2024 15:04-0400 Body height 170.18 cm No Primary Care Physician [facility] 12-01-2024 15:04-0400 Body temperature 97.1 [degF] No Primary Care Physician [facility] 12-01-2024 15:04-0400 Diastolic blood pressure 86 mm[Hg] No Primary Care Physician [facility] 12-01-2024 15:04-0400 Heart rate 58 /min No Primary Care Physician [facility] 12-01-2024 15:04-0400 Respiratory rate 13 /min No Primary Care Physician [facility] 12-01-2024 15:04-0400 SaO2% (BldA) [Mass fraction] 100 % No Primary Care Physician [facility] 12-01-2024 15:04-0400 Systolic blood pressure 123 mm[Hg] No Primary Care Physician [facility] 11-29-2024 17:11-0400 Body temperature 98 [degF] No Primary Care Physician [facility] 11-29-2024 17:11-0400 Diastolic blood pressure 76 mm[Hg] No Primary Care Physician [facility] 11-29-2024 17:11-0400 Heart rate 62 /min No Primary Care Physician [facility] 11-29-2024 17:11-0400 Respiratory rate 14 /min No Primary Care Physician [facility] 11-29-2024 17:11-0400 SaO2% (BldA) [Mass fraction] 99 % No Primary Care Physician [facility] 11-29-2024 17:11-0400 Systolic blood pressure 109 mm[Hg] No Primary Care Physician [facility] 11-29-2024 16:11-0400 Body height 170.18 cm No Primary Care Physician [facility] 11-29-2024 16:11-0400 Body mass index (BMI) [Ratio] 24 kg/m2 No Primary Care Physician [facility] 11-29-2024 16:11-0400 Body weight 69.44 kg No Primary Care Physician [facility] 11-19-2024 12:03-0400 Body mass index (BMI) [Ratio] 23.92 kg/m2 Blaine Drake APRN.DISASSEMBLER Work Phone: [facility] 11-19-2024 12:03-0400 Body temperature 98.2 [degF] Blaine Drake APRN.DISASSEMBLER Work Phone: [facility] 11-19-2024 12:03-0400 Body weight 70.31 kg Blaine Drake APRN.DISASSEMBLER Work Phone: [facility] 11-19-2024 12:03-0400 Diastolic blood pressure 68 mm[Hg] Blaine Drake APRN.DISASSEMBLER Work Phone: [facility] 11-19-2024 12:03-0400 Heart rate 70 /min Blaine Drake APRN.DISASSEMBLER Work Phone: [facility] 11-19-2024 12:03-0400 Respiratory rate 16 /min Blaine Drake APRN.DISASSEMBLER Work Phone: [facility] 11-19-2024 12:03-0400 SaO2% (BldA) [Mass fraction] 98 % Blaine Drake APRN.DISASSEMBLER Work Phone: [facility] 11-19-2024 12:03-0400 Systolic blood pressure 122 mm[Hg] Blaine Drake APRN.DISASSEMBLER Work Phone: [facility] 10-15-2024 09:54-0500 Body mass index (BMI) [Ratio] 23.81 kg/m2 Emily Dunne APRN.DISASSEMBLER Work Phone: [facility] 10-15-2024 09:54-0500 Body temperature 99.81 [degF] Emily Dunne APRN.DISASSEMBLER Work Phone: [facility] 10-15-2024 09:54-0500 Body weight 70 kg Emily Dunne APRN.DISASSEMBLER Work Phone: [facility] 10-15-2024 09:54-0500 Diastolic blood pressure 94 mm[Hg] Emily Dunne APRN.DISASSEMBLER Work Phone: [facility] 10-15-2024 09:54-0500 Heart rate 94 /min Emily Dunne APRN.DISASSEMBLER Work Phone: [facility] 10-15-2024 09:54-0500 Respiratory rate 20 /min Emily Dunne APRN.DISASSEMBLER Work Phone: [facility] 10-15-2024 09:54-0500 SaO2% (BldA) [Mass fraction] 96 % Emily Dunne APRN.DISASSEMBLER Work Phone: [facility] 10-15-2024 09:54-0500 Systolic blood pressure 122 mm[Hg] Emily Dunne APRN.DISASSEMBLER Work Phone: [facility] 05-26-2024 14:44-0400 Body mass index (BMI) [Ratio] 24.56 kg/m2 Blaine Drake APRN.DISASSEMBLER Work Phone: [facility] 05-26-2024 14:44-0400 Body temperature 98.2 [degF] Blaine Drake APRN.DISASSEMBLER Work Phone: [facility] 05-26-2024 14:44-0400 Body weight 72.2 kg Blaine Drake APRN.DISASSEMBLER Work Phone: [facility] 05-26-2024 14:44-0400 Diastolic blood pressure 86 mm[Hg] Blaine Drake APRN.DISASSEMBLER Work Phone: [facility] 05-26-2024 14:44-0400 Heart rate 64 /min Blaine Drake APRN.DISASSEMBLER Work Phone: [facility] 05-26-2024 14:44-0400 Respiratory rate 16 /min Blaine Drake STEWARDESSES TEACHER.DISASSEMBLER Work Phone: [facility] 05-26-2024 14:44-0400 SaO2% (BldA) [Mass fraction] 98 % Blaine Drake STEWARDESSES TEACHER.DISASSEMBLER Work Phone: [facility] 05-26-2024 14:44-0400 Systolic blood pressure 124 mm[Hg] Blaine Drake STEWARDESSES TEACHER.DISASSEMBLER Work Phone: [facility] 02-10-2023 14:45-0400 Body temperature 97.3 [degF] No Primary Care Physician [facility] 02-10-2023 14:45-0400 Diastolic blood pressure 77 mm[Hg] No Primary Care Physician [facility] 02-10-2023 14:45-0400 Heart rate 58 /min No Primary Care Physician [facility] 02-10-2023 14:45-0400 Respiratory rate 16 /min No Primary Care Physician [facility] 02-10-2023 14:45-0400 SaO2% (BldA) [Mass fraction] 98 % No Primary Care Physician [facility] 02-10-2023 14:45-0400 Systolic blood pressure 103 mm[Hg] No Primary Care Physician [facility] 02-10-2023 13:14-0400 Body height 170.18 cm No Primary Care Physician [facility] 02-10-2023 13:14-0400 Body mass index (BMI) [Ratio] 23.8 kg/m2 No Primary Care Physician [facility] 02-10-2023 13:14-0400 Body weight 69 kg No Primary Care Physician [facility] 12-12-2022 11:30-0400 Body height 170.18 cm No Primary Care Physician [facility] 12-12-2022 11:30-0400 Body mass index (BMI) [Ratio] 24.3 kg/m2 No Primary Care Physician [facility] 12-12-2022 11:30-0400 Body weight 70.3 kg No Primary Care Physician [facility] 11-05-2022 14:35-0500 Body height 170.18 cm No Primary Care Physician [facility] 11-05-2022 14:35-0500 Body mass index (BMI) [Ratio] 24.1 kg/m2 No Primary Care Physician [facility] 11-05-2022 14:35-0500 Body weight 69.85 kg No Primary Care Physician [facility] 11-05-2022 14:35-0500 Diastolic blood pressure 76 mm[Hg] No Primary Care Physician [facility] 11-05-2022 14:35-0500 Heart rate 73 /min No Primary Care Physician [facility] 11-05-2022 14:35-0500 Respiratory rate 16 /min No Primary Care Physician [facility] 11-05-2022 14:35-0500 Systolic blood pressure 118 mm[Hg] No Primary Care Physician [facility] Encounters Encounter Date Encounter Type Care Provider Facility Start: 04-17-2025 ambulatory No Primary Car e Physician Facility:[facility] Start: 03-20-2025 Encounter for genera l adult medical examination without [facility] Start: 03-07-2025 ambulatory No Primary Car e Physician Facility:[facility] Start: 03-03-2025 End: 03-03-2025 ambulatory No Primary Care Physician -Cat Scan [facility] Start: 03-03-2025 End: 03-03-2025 Patient encounter procedure Clari Garcia PA -Cat Scan [facility] Work Phone: Start: 03-03-2025 End: 03-03-2025 ambulatory Clari RIVERO Facility:[facility] Start: 02-22-2025 Non-patient / Non-visit Dr. Stevo ennis MD -[facility] Start: 02-22-2025 End: 02-22-2025 ambulatory No Primary Care Physician [facility] Work Phone: Start: 02-22-2025 End: 02-22-2025 Patient encounter procedure Sapna RIVERO -[facility] Work Phone: Start: 12-16-2024 End: 12-16-2024 Patient encounter procedure Sapna RIVERO -[facility] Work Phone: Start: 12-16-2024 End: 12-16-2024 ambulatory No Primary Care Physician Facility:[facility] Start: 12-01-2024 End: 12-01-2024 Emergency department patient visit No Primary Care Physician -Emergency Department Work Phone: Start: 11-29-2024 End: 11-29-2024 Emergency department patient visit No Primary Care Physician -Emergency Department Work Phone: Start: 11-29-2024 End: 11-29-2024 Telephone encounter [facility] Start: 11-19-2024 End: 11-19-2024 Patient encounter procedure Blaine Drake APRN.DISASSEMBLER Work Phone: [facility] Comment on above: Acute pain of right knee (Primary Dx) Start: 11-19-2024 End: 11-19-2024 ambulatory [facility] Facility:[facility] Start: 11-19-2024 End: 11-19-2024 Subsequent hospital visit by physician Xr [facility] Work Phone: Radiology Comment on above: Acute pain of right knee [M25.561] Start: 10-15-2024 End: 10-15-2024 ambulatory [facility] Facility:[facility] Start: 10-15-2024 End: 10-15-2024 Patient encounter procedure Emily Dunne APRN.DISASSEMBLER Work Phone: [facility] Comment on above: URI with cough and c ongestion (Primary Dx); Fever, unspecified fever cause; Influenza A Start: 06-07-2024 End: 06-07-2024 Telephone encounter No Pcp STEWARDESSES TEACHER [facility] Alia sweeney Comment on above: Consult Start: 05-26-2024 End: 05-26-2024 ambulatory [facility] Start: 05-26-2024 End: 05-26-2024 Patient encounter procedure Blaine Drake APRN.DISASSEMBLER Work Phone: [facility] Comment on above: Skin mass (Primary D x) Start: 02-10-2023 Non-patient / Non-visit No [facility] Physician [facility] Start: 02-10-2023 End: 02-10-2023 Admission to same day surgery center No Primary Care Physician [facility] Start: 02-10-2023 End: 02-10-2023 ambulatory No Primary Care Physician [facility] Work Phone: Start: 12-24-2022 Non-patient / Non-visit No Zahra stephenson Care Physician [facility] Start: 12-15-2022 End: 12-15-2022 ambulatory No Primary Care Physician [facility] Work Phone: Start: 12-15-2022 End: 12-15-2022 Patient encounter procedure No Primary Care Physician [facility] Start: 12-12-2022 Non-patient / Non-visit No Zahra stephenson Care Physician [facility] Start: 11-28-2022 End: 11-28-2022 ambulatory No Primary Care Physician [facility] Work Phone: Start: 11-28-2022 End: 11-28-2022 Patient encounter procedure No Primary Care Physician [facility] Start: 11-26-2022 Non-patient / Non-visit No Zahra stephenson Care Physician [facility] Start: 11-18-2022 Non-patient / Non-visit No Zahra stephenson Care Physician [facility] Start: 11-18-2022 End: 11-18-2022 ambulatory No Primary Care Physician [facility] Work Phone: Start: 11-18-2022 End: 11-18-2022 Patient encounter procedure No Primary Care Physician [facility] Start: 11-05-2022 End: 11-05-2022 Patient encounter procedure No Primary Care Physician [facility] Start: 10-16-2022 Non-patient / Non-visit No Zahra stephenson Care Physician [facility] Procedures Date Procedure Procedure Detail Performing Clinician Start: 03-03-2025 CT angiography of co ronary arteries No Primary Care Physician Start: 11-19-2024 Radiologic examinati on knee 3 views Blaine Drake APRN.CNP Work Phone: Start: 10-15-2024 INFLUENZA A&B MOLECU LAR (POC) Emily Dunne APRN.DISASSEMBLER Work Phone: Start: 02-10-2023 Colonoscopy No Primary Care Physician Start: 12-15-2022 CT angiography of co ronary arteries No Primary Care Physician Start: 09-11-2020 Lipid 1996 panel - S marychuy or Plasma Blaine Drake STEWARDESSES TEACHER.DISASSEMBLER Work Phone: Plan of Treatment Date Care Activity Detail Author Start: 09-11-2025 Lipid panel Lipid Screening [facility] Start: 12-01-2024 [facility] Start: 11-29-2024 [facility] Start: 11-25-2024 End: 11-25-2024 Patient encounter procedure 11/25/2024 11:30 AM EDT Office Visit [facility] [address] [place], [place] [id number] Prasanna Driscoll V, DO [address] [place], [place] [id number] Acute pain of right knee [M25.561] [facility] Comment on above: Acute pain of right knee [M25.561] Start: 05-08-2024 Covid-19 Vaccine ( season) Covid-19 Vaccine ( season) [facility] Start: 05-08-2024 Covid-19 Vaccine ( season) Covid-19 Vaccine ( season) [facility] Start: 05-08-2024 Influenza vaccination Influenza Vacc ine (#1) [facility] Start: 02-10-2023 Patient discharge [facility] Start: 10-27-2021 Diabetes Screening Diabetes Screenin g [facility] Start: 2021 Screening for malign ant neoplasm of colon [facility] Start: 11-03-2018 Urine microalbumin profile DTaP,Tdap,Td Vaccine (2 - Td or Tdap) [facility] Start: 10-31-2000 Hepatitis B Vaccine (3 of 3 - 19+ 3-dose series) Hepatitis B Vaccine (3 of 3 - 19+ 3-dose series) [facility] Start: 1994 Anxiety Screening Anxiety Screening [facility] Start: 1994 Depression Screening Depression Scre randall [facility] Start: 1994 Hepatitis C screening Hepatitis C Sc jabieriheu [facility] Start: 1994 HIV screening HIV Screening [facility] Colonoscopy [facility] CT angiography of coronary arteries [facility] Patient Education [facility] Work Phone: Patient referral [facility] Work Phone: US.doppler Lower extremity vein [facility] Immunizations Immunization Date Immunization Notes Care Provider Fa cility 08-07-2020 influenza, injectabl e, quadrivalent, contains preservative Blaine Vidal STEWARDESSES TEACHER.DISASSEMBLER Work Phone: [facility] 08-07-2020 influenza virus vacc ine, unspecified formulation Blaine Vidal STEWARDESSES TEACHER.DISASSEMBLER Work Phone: [facility] 11-03-2008 tetanus toxoid, redu claire diphtheria toxoid, and acellular pertussis vaccine, adsorbed Blaine Vidal STEWARDESSES TEACHER.DISASSEMBLER Work Phone: [facility] 07-31-2000 hepatitis B vaccine, adult dosage Blaine Vidal STEWARDESSES TEACHER.DISASSEMBLER Work Phone: [facility] 04-30-2000 hepatitis B vaccine, adult dosage Blaine Vidal STEWARDESSES TEACHER.DISASSEMBLER Work Phone: [facility] 04-30-2000 poliovirus vaccine, inactivated Blaine Vidal STEWARDESSES TEACHER.DISASSEMBLER Work Phone: [facility] Payers Date Payer Category Payer Unknown [id number] 2024 Self-pay 2022 [facility] [id number] 2022 Unknown [employer] PPO [id number] 2022-Present [phone] [address] [place] [address] PPO [id number] 2022 Unknown [id number] Private Health Insurance [id number] Unknown [facility] PACKAGE PLAN [id number] Unknown [id number] Unknown [id number] Unknown [id number] Unknown [id number] Unknown [id number] Unknown [id number] [id number] Unknown [id number] [id number] [id number] Unknown [id number] Unknown [id number] [id number] Unknown [id number] [id number] Social History Date Type Detail Facility Start: 11-05-2022 End: 02-05-2023 Tobacco smoking status NHIS Unknown if ever smoked [facility] Start: 1975 Sex Assigned At Male [facility] Start: 05-26-2024 End: 12-01-2024 Tobacco smoking status NHIS Never smoked tobacco [facility] Start: 05-26-2024 Tobacco use and exposure Smokeless tobacco non-user [facility] Start: 05-26-2024 End: 10-15-2024 Alcoholic beverage intake Current drinker of alcohol (finding) [facility] Start: 08-15-2020 End: 05-26-2024 Alcoholic beverage intake [facility] Start: 08-15-2020 End: 05-26-2024 Tobacco use panel [facility] Adult Depression Screening Assessment 0 [facility] Start: 1975 Sex assigned at Not on file [facility] Start: 11-29-2024 End: 12-01-2024 Sex Male (finding) [facility] Goals Date Patient Goal Desired Activity /State Mental Status Date Assessment Result Facility 02-10-2023 Cognitive function Voice/Name [facility] Work Phone: Clinical Notes 02-10-2023 to 03-03-2025 Note Date & Type Note Facility 03-03-2025 Radiology Diagnostic study note [facility] Imaging Services [address] [place] [id number] Cardiac Only MR#: [id number] Acct: [id number] Name: ASHLYN LEE Rep #: [id number] : 1975 M 49 From: Dat Jacobo MD PCP: Care Physician,No Primary Status: REG CLI Study:Limited Chest CT Cardiac Only Date of E xam: 03/03/25 Exam# [id number] Ordering Dr: Clari Soliman PROCEDURE: LIMITED CHEST [...] abdomen demonstrates no significant abnormality. Reading Location: [place] [address] CC: JOSEFA Faustin; No Primary Care Physician ~ Field Reimbursement Manager: Signed [facility] 12-16-2024 Evaluation note Diagnosis Onset Date Resolution Deep vein thrombosis (DVT) noneactive December 16, 2024 8:27am [facility] Work Phone: 1(913) 810-968904-11-2025 Evaluation note* Diagnosis Onset Date Resolution Status Admit Date Deep vein thrombosis (DVT) noneactiv e December 16, 2024 8:27am Deep vein thrombosis (DVT) noneactiv e February 22, 2025 8:54am [facility] Work Phone: 1(358) 240-675103-27-2025 Discharge summary [facility] Medical Records Department [address] [place] [address] Emergency Department Summary 12/01/24 MR#: [id number] Acct: [id number] Name: ASHLYN LEE Rep #:[id number] : [...] vascular surgeon and also your MRI through [facility]. Tylenol for pain. Print Language: Barbadian Disposition Disposition: Home, Self Care What to do if you have Problems For any increased pain, shortness of breath, bleeding, nausea or vomiting, chestpain, or any unexpected problems, contact your Primary Care Provider. Call [facility] ([phone]) or report tothe closest Emergency Room. Call 911 if necessary. 12/01/24 1702 Cosigner Signature (if applicable): CC: No Primary Care Physician ~ Signed [facility]03-27-2025 Discharge summary Author Erwin Meredith [facility] Note Date/Time December 01, 2024 5:0 2pm [facility] Medical Records Department [address] [place] [address] Emergency Department Summary 12/01/24 MR#: [id number] Acct: [id number] Name: ASHLYN LEE Rep #:[id number] : [...] vascular surgeon and also your MRI through [facility]. Tylenol for pain. Print Language: Barbadian Disposition Disposition: Home, Self Care What to do if you have Problems For any increased pain, shortness of breath, bleeding, nausea or vomiting, chestpain, or any unexpected problems, contact your Primary Care Provider. Call [facility] ([phone]) or report to the closest Emergency Room. Call 911 if necessary. 12/01/24 1702 <Electronically signed by Erwin Meredith MD> Cosigner Signature (if applicable): CC: No Primary Care Physician ~ Signed [facility] Work Phone: 1(520) 869-331103-25-2025 Discharge summary [facility] Medical Records Department [address] [place] [address] Emergency Department Summary 11/29/24 MR#: [id number] Acct: [id number] Name: ASHLYN LEE Rep #:[id number] : [...] that he recently took a trip to [facility] and notes that he has some pain [...] Patient denies any history of blood clots. [facility] Medical History Wears glasses Alcohol use [...] following commands knew that he was at [facility] year is 2024 Skin: Warm, dry, intact [...] right calf after a recent trip to [facility]. On the differential diagnose includes but not [...] - Vivien Ross MD [Med Staff - Director Of Business Systems] - Stevo Duarte MD [Med Staff - [...] follow-up with them as well. Print Language: Barbadian Disposition Disposition: Home, Self Care What to do if you have Problems For any increased pain, shortness of breath, bleeding, nausea or vomiting, chestpain, or any unexpected problems, contact your Primary Care Provider. Call [facility] ([phone]) or report tothe closest Emergency Room. Call 911 if necessary. 11/29/24 9824 Cosigner Signature (if applicable): CC: No Primary Care Physician ~ Signed [facility]03-25-2025 Discharge summary Author Rl Buenrostro [facility] Note Date/Time November 29, 2024 4:5 4pm [facility] Medical Records Department [address] [place] [address] Emergency Department Summary 11/29/24 MR#: [id number] Acct: [id number] Name: ASHLYN LEE Rep #:[id number] : [...] that he recently took a trip to [facility] and notes that he has some pain [...] Patient denies any history of blood clots. [facility] Medical History Wears glasses Alcohol use [...] following commands knew that he was at [facility] year is 2024 Skin: Warm, dry, intact [...] right calf after a recent trip to [facility]. On the differential diagnose includes but not [...] - Vivien Ross MD [Med Staff - Director Of Business Systems] - Stevo Duarte MD [Med Staff - [...] follow-up with them as well. Print Language: Barbadian Disposition Disposition: Home, Self Care What to do if you have Problems For any increased pain, shortness of breath, bleeding, nausea or vomiting, chestpain, or any unexpected problems, contact your Primary Care Provider. Call [facility] ([phone]) or report to the closest Emergency Room. Call 911 if necessary. 11/29/24 1654 <Electronically signed by Rl Buenrostro DO> Cosigner Signature (if applicable): CC: No Primary Care Physician ~ Signed [facility] Work Phone: 1(411) 728-212403-25-2025 Telephone encounter Note* Telephone Encounter - Geri Scott PSS - 11/29/2024 1:23 PM EDT CD READY FOR REROLLER HAND AT [facility] RADIOLOGY [facility]03-25-2025 Miscellaneous Notes* Telephone Encounter - Geri Scott PSS - 11/29/2024 1:23 PM EDT CD READY FOR REROLLER HAND AT [facility] RADIOLOGY * Telephone Encounter - Clari Estevez - 11/29/2024 12:15 PM EDT Patient would like to picker tender helper CD of x-ray done on 11/19/24. documented in this encounterC[facility]03-[facility]25 Telephone encounter Note * Telephone Encounter - Clari Estevez - 11/29/2024 12:15 PM EDT Patient would like to picker tender helper CD of x-ray done on 11/19/24. [facility]03-15-2025 NoteHNO ID: [id number] Author: BLAINE DRAKE APRN.DISASSEMBLER Service: ? Author Type: Nurse Practitioner Type: [...] MD - CONSULT TO ORTHOPAEDICS Blaine Drake APRN.DISASSEMBLER M[facility] History of Present illness Narrative* [...] KARON MA MD - CONSULT TO ORTHOPAEDICS Blaien Drake APRN.JARAD MDM Procedures documented in this encounterC[facility]03-15-2025 History of Present illness Narrative* Ray Riley [...] PATIENT PRESENTS WITH AN IMPLANTABLE OR ATTACHED CALENDER TENDER: No RADIOLOGY DEPARTMENT: General X-ray: Exam(s) Completed: Lower Extremity X- Ray(s): Knee, AP / Lat / Merchant Right PERIPHERAL IV DATA: Not applicable SIGNED BY: RT Ilya(R) November 19, 2024 12:34 PM documented in this encounterCleveland [facility]03-15-2025 NoteHNO ID: [id number] Author: RAY RILEY RT(R) Service: ? Author [...] PATIENT PRESENTS WITH AN IMPLANTABLE OR ATTACHED CALENDER TENDER: No RADIOLOGY DEPARTMENT: General X-ray: Exam(s) Completed: Lower Extremity X-Ray(s): Knee, AP / Lat / Merchant Right PERIPHERAL IV DATA: Not applicable SIGNED BY: RT Ilya(R) November 19, 2024 12:34 [facility]02-08-2025 NoteHNO ID: [id number] Author: EMILY DUNNE APRN.DISASSEMBLER Service: ? Author Type: Nurse Practitioner Type: Progress Notes Filed: 10/15/2024 10:15 Note Text: This note was created using [employer]riter. Subjective Bertrand Lee is a 49 year [...] - OSELTAMIVIR 75 MG CAPSULE Emily Dunne APRN.[facility]02-08-2025 History of Present illness Narrative* Emily Dunne APRN.[facility] - 10/15/2024 10:00 AM EST This note was created using [employer]. Subjective Bertrand Lee is a 49 year [...] - OSELTAMIVIR 75 MG CAPSULE Emily Dunne APRN.DISASSEMBLER documented in this encounterC[facility]10-01-2024 Telephone encounter Note * Telephone Encounter - Rachel Golden LPN - 06/07/2024 4:16 PM EDT Pt calls to report he was seen in on 05/26/24 and referred to [facility]. Pt is requesting order be faxed to: [phone]. Order faxed as requested. Rachel Golden LPN [facility]10-01-2024 Miscellaneous Notes* Telephone Encounter - Rachel Golden LPN - 06/07/2024 4:16 PM EDT Pt calls to report he was seen in on 05/26/24 and referred to [facility]. Pt is requesting order be faxed to: [phone]. Order faxed as requested. Rachel Golden LPN documented in this encounterCleveland Clinic [facility]09-19-2024 NoteHNO ID: [id number] Author: BLAINE DRAKE APRN.DISASSEMBLER Service: ? Author Type: Nurse Practitioner Type: [...] 782.2, ICD10: R22.9 Refer to dermatology Call [facility] Dermatology for appointment. - CONSULT TO DERMATOLOGY Blaine Drake APRN.CNPPremier Health [facility]09-19-2024 History of Present illness Narrative* [...] 782.2, ICD10: R22.9 Refer to dermatology Call [facility] Dermatology for appointment. - CONSULT TO DERMATOLOGY Blaine Drake APRN.CNP documented in this encounterCleveland Clinic [facility]06-06-2023 Procedure [facility]06-06-2023 [facility] Diagnosis Onset Date Resolution Status Chest pain acute [facility] Work Phone: Evaluation note* Diagnosis Onset Date Resolution Status Chest pain acute Encounter for screening for malignant neoplasm of colo n acute [facility] Work Phone: Evaluation note* Diagnosis Skin mass- Primary Localized superficial swelling, mass, or lump documented in this encounter [facility]* Diagnosis URI with cough and congestion- Primary Fever, unspecified fever cause Influenza A Influenza with other respiratory manifestations documented in this encounter [facility] note* Diagnosis Acute pain of right knee- Primary documented in this encounter [facility] HospitalEvalutr[facility] health noteNo assessment information availableWUniversity [facility]als [facility] Work Phone: History and physical note Author Jus Schaeffer [facility] February 10, 2023 1:45pm Note Date/Time February 10, 2023 1:45p m [facility] Medical Records Department [address] [place] [address] History & Physical Exam 02/10/23 1344 MR#: [id number] Acct: [id number] Name: ASHLYN LEE Rep #:[id number] : 1975 47 From: Jus Schaeffer DO PCP: Care Physician,No Primary Status :REG [facility] Location: [place] [address] HPI - General General Date of Admission: 02/10/23 Date of Service: 02/10/23 Chief Complaint: Screening colonoscopy HPI Narrative ASHLYN ELE, is a 47 M who presents today [...] history of colon cancer or colon polyps. [facility] Medical History Alcohol use Cardiology follow-up encounter [...] Primary Care Physician; Jus Schaeffer DO~ Signed [facility] Work Phone: Hospital Discharge instructions Additional Instructions [...] 1. He should follow-up with them as well.[facility] Work Phone: Hospital Discharge instructions Additional Instructions [...] vascular surgeon and also your MRI through [facility]. Tylenol for pain.[facility] Work Phone: Reason for referral (narrative)No reason for referral information availableWooOhioHealth Grant Medical Center Work Phone: Reason for visit Narrative* Diagnostic Procedure Only (Urgent) - Closed Specialty Diagnoses / Procedures Referred By Contac t Referred To Contact XR IMAGING Diagnoses Acute pain of left knee Procedures XR KNEE POST OP 3V AP/LAT/MERCHANT LEFT RADIOLOGIC EXAMINATION KNEE 3 VIEWS Blaine Drake, STEWARDESSES TEACHER.DISASSEMBLER [address] [facility] [place] [address] Phone: tel: fax: [place] [address] Referral ID Status Reason Start Date Expiration Date V isits Requested Visits Authorized [id number] Closed Auto-Generate d Referral 11/19/2024 12/19/2025 1 1 [facility] Chief Complaint and Reason for Visit Chief [...] Date/ Time Name of Medical Power of Experimental Machinist February 05, 2023 9:25am Living Will Yes February 05, 2023 9 :25am Power of Experimental Machinist Yes February 05, 2023 9:25am Advance Directive Response Recorded Date/ Time Living Will Yes November 29, 2024 4:42pm Do you have a Healthcare Power of Experimental Machinist? Yes November 29, 2024 4:42pm Name of Medical Power of Experimental Machinist Patricia November 29, 2024 4:42pm Advance Directive Response Recorded Date/ Time Living Will Yes November 29, 2024 4:42pm Do you have a Healthcare Power of Experimental Machinist? Yes November 29, 2024 4:42pm Name of Medical Power of Experimental Machinist Patricia November 29, 2024 4:42pm Living Will No December 01, 2024 4:35pm Do you have a Healthcare Power of Experimental Machinist? No December 01, 2024 4:35pm Reason for Referral Specialty Diagnoses / Procedures Referred By Shabnam reyes Referred To Contact Dermatology Diagnoses Skin mass Procedures CONSULT TO DERMATOLOGY Blaine Drake APRN.DISASSEMBLER [address] [place] [address] Referral ID Status Reason Start Date Expiration Date Visits Requested Visits Authorized [id number] Ref Not Required PCP Requested Referral 05/26/2024 [...] Care Provider Active Start: February 22, 2025 JOSEAF Platt Attending Provider Active Star t: February [...] any alcohol or drug abuse patient.[facility] HospitalIn the event this information is protected by the Federal Confidentiality of Alcohol and Drug Abuse Patient Records regulations: The Federal rules restrict any use of the information to criminally investigate or prosecute any alcohol or drug abuse patient.[facility] HospitalIn the event this information is protected by the Federal Confidentiality of Alcohol and Drug Abuse Patient Records regulations: The Federal rules restrict any use of the information to criminally investigate or prosecute any alcohol or drug abuse patient.[facility] HospitalIn the event this information is protected by the Federal Confidentiality of Alcohol and Drug Abuse Patient Records regulations: The Federal rules restrict any use of the information to criminally investigate or prosecute any alcohol or drug abuse patient.[facility] HospitalIn the event this information is protected by the Federal Confidentiality of Alcohol and Drug Abuse Patient Records regulations: The Federal rules restrict any use of the information to criminally investigate or prosecute any alcohol or drug abuse patient.[facility] HospitalIn the event this information is protected by the Federal Confidentiality of Alcohol and Drug Abuse Patient Records regulations: The Federal rules restrict any use of the information to criminally investigate or prosecute any alcohol or drug abuse patient.[facility] [facility] Reason for Visit (unrecogniz ed section and [...] section and content) DATE CREATED AUTHOR 11/30/2024 [facility] DATE CREATED AUTHOR AUTHOR'S ORGANHUNG ATION 04/05/2025 [facility] FOR RECORDS PERTAINING TO PATIENTS WHO ARE [...] BE BASED ON THE PRIMARY CLINICAL RECORDS. [employer] provides no warranty or guarantee of the accuracy or completeness of information in this document.
== END | disposition home or self-care (01) ==
LOC: CVS 11:02
PROVIDERS: Referring Provider Physician Assistant; Visit Provider Physician Assistant
DX: M79.89 Other specified soft tissue disorders (principal); I82.401 Acute embolism and thrombosis of unspecified deep veins of right lower extremity
CPT/HCPCS: 93971

== ENCOUNTER → 2025-08-22 | Outpatient (CLI) | payer BC, SELFPAY ==
--- NOTE | 2025-08-22 11:03 | VDLE_ITS ---
Reason For Study Reason For Study: HX DVT / RLE Pain RIGHT GSV is normal. CFV is compressible, spontaneous, phasic, competent and demonstrates normal augmentation. FV is compressible, spontaneous, phasic, competent and demonstrates normal augmentation. POP V is compressible, spontaneous, phasic, competent and demonstrates normal augmentation. T/P Trunk is compressible. PTV is compressible. RT PerV is compressible. Rt Gastrocnemius Vein is PARTIALLY COMPRESSIBLE with BRIGHT intraluminal echoes noted. Finding is consistent with CHRONIC DVT. Procedure This is a venous duplex using B-mode, color flow and spectral Doppler. Exam performed in department. The exam was diagnostic. A preliminary report was called and/or faxed to [facility]. VL/Venous Duplex US, Unilateral Interpretation Summary Chronic post thrombotic changes noted in the right gastrocnemius vein. Ordering Physician: Sapna Grant Referring Physician: N/A Performed By: Abhi Duncan RVT
== END | disposition home or self-care (01) ==
LOC: CVS 11:02
PROVIDERS: Referring Provider Physician Assistant; Visit Provider Physician Assistant
DX: M79.89 Other specified soft tissue disorders (principal); M79.604 Pain in right leg
CPT/HCPCS: 93971